=== PATIENT | male | born 1965 | race Caucasian/White ===

== ENCOUNTER 2018-02-24 01:14 | Inpatient (IN) | payer MEDICAID, SELFPAY ==
[2018-02-24] MEDS ORDERED: Lidocaine 1% (PF) 30 ML VIAL ONE (01:24)
[2018-02-24] MEDS ORDERED: Heparin 5,000 UNITS/ML VIAL ONE (01:30)
[2018-02-24 01:44] LABS: #Basophils 0.1 thou/uL (0.0-0.2); #Eosinphils 0.1 thou/uL (0.0-0.7); #Lymphocytes 1.8 thou/uL (1.20-3.40); #Monocytes 0.7 thou/uL (0.11-0.59); #Neutrophils 5.6 thou/uL (1.40-6.50); %Basophils 0.7 % (0.0-1.0); %Eosinophils 0.6 % (0.0-10.0); %Lymphocytes 21.7 % (21.0-51.0); %Monocytes 8.2 % (0.0-10.0); %Neutrophils 68.7 % (42.0-75.0); Hemoglobin 16.7 g/dL (14.0-18.0); Mean Corpuscular HGB CONC 31.9 g/dL (32.0-36.0); Mean Corpuscular Hemoglobin 30.9 pg (27.0-31.0); Mean Platelet Volume 7.4 fL (7.4-10.4); Platelet Count 213 thou/uL (130-400); RBC Distribution Width 12.3 % (11.5-14.5); Red Blood Cell (RBC) Count 5.41 mill/uL (4.70-6.10); White Blood Cell (WBC) Count 8.1 thou/uL (4.8-10.8)
[2018-02-24 01:54] LABS: Prothrombin Time 13.1 SEC (12.0-14.7)
[2018-02-24] MEDS ORDERED: Adenosine 6 MG/2 ML VIAL ONE (02:02)
[2018-02-24] MEDS ORDERED: Verapamil 5 MG/2 ML VIAL ONE (02:02)
[2018-02-24 02:03] LABS: ALT (SGPT) 12 U/L (8-55); AST (SGOT) 10 U/L (5-34); Albumin 3.9 g/dL (3.5-5.0); Alkaline Phosphatase 91 U/L (40-150); Anion Gap 23 mmol/L (10-20); BUN (Urea Nitrogen) 18 mg/dL (8.4-25.7); Bilirubin, Total 0.5 mg/dL (0.2-1.2); Calc. Creatinine Clearance 0 mL/min (70-130); Calcium 9.4 mg/dL (7.8-10.44); Carbon Dioxide 21 mmol/L (22-29); Chloride 95 mmol/L (98-107); Estimated GFR-MDRD 71; Globulin 2.8 g/dL (2.4-3.5); Glucose 429 mg/dL (70-105); Magnesium 1.9 mg/dL (1.6-2.6); Potassium 4.8 mmol/L (3.5-5.1); Protein, Total 6.7 g/dL (6.0-8.3); Sodium 134 mmol/L (136-145)
[2018-02-24 02:04] LABS: CKMB 3.6 ng/mL (0-6.6); Troponin I 0.289 ng/mL (< 0.028)
[2018-02-24] MEDS ORDERED: Heparin 10,000 UNITS/1 ML VIAL ONE (02:04)
[2018-02-24] MEDS ORDERED: Nitroglycerin 100MG/250ML BOT 250 ML ONE (02:08)
[2018-02-24] MEDS ORDERED: PHENYLEPHRINE-NS 100 MCG/ML 10 ML SYRINGE ONE (02:20)
[2018-02-24] MEDS ORDERED: Acetaminophen/Codeine 30-300mg Tablet PO PRN (02:33)
[2018-02-24] MEDS ORDERED: Morphine 4 MG/ML VIAL SLOW IVP PRN (02:33)
[2018-02-24] MEDS ORDERED: Mag-Al 1200 mg/1200 mg/30 ML UDCUP PO PRN (02:33)
[2018-02-24] MEDS ORDERED: Milk Of Magnesia 30 ML UDCUP PO PRN (02:33)
[2018-02-24] MEDS ORDERED: Amiodarone In Dextrose 200 ML IVPB SCH (02:45)
[2018-02-24] MEDS ORDERED: Sodium Chloride 0.9% 1,000 ML IV SCH (02:45)
--- NOTE | 2018-02-24 03:04 | HP ---
CHIEF COMPLAINT: Acute myocardial infarction. HISTORY OF PRESENT ILLNESS: Mr. Canela is a 52-year-old gentleman, who has been seen and evaluated by Dr. Soy Costello in the past. He recently presented with acute onset chest pain. Chest pain start ed at 9:00 this evening. He then presented to the emergency room with ST segment elevation CA. PAST MEDICAL HISTORY: CAD, status post non-Q wave myocardial infarction, status post stent placement to the circumflex artery; diabetes mellitus; hyperlipidemia; illicit drug use (amphetamine use); CVA with left-sided numbness; pneumothorax; hypertension. ALLERGIES: METFORMIN. MEDICATIONS: Include spironolactone, losartan, Plavix, glyburide, Proventil, Xopenex, clonidine, and pravastatin. SOCIAL HISTORY: Positive tobacco use, positive methamphetamine use. FAMILY HISTORY: Positive for CAD. REVIEW OF SYSTEMS: A ten-point review of systems is reviewed and as above, otherwise negative. PHYSICAL EXAMINATION: GENERAL: Patient is a pleasant male who is in no acute distress. The patient appears older than his stated age. VITAL SIGNS: Blood pressure 110/70, pulse 80, respirations 20. NEUROLOGIC: The patient is alert and oriented times 3 with no focal neurologic deficits. HEENT: Sclerae without icterus. Mouth has moist mucous membranes with normal pallor. NECK: No JVD. Carotid upstroke brisk. No bruits bilaterally. LUNGS: Clear to auscultation with unlabored respirations. BACK: No scoliosis or kyphosis. CARDIAC: Regular rate and rhythm with normal S1 and S2. No S3 or S4 noted. No significant rubs, mu rmurs, thrills, or gallops noted throughout the precordium. PMI is not displaced. There is no christian ternal heave. ABDOMEN: Soft, nontender, nondistended. No peritoneal signs present. No hepatosplenomegaly. No ab normal striae. EXTREMITIES: 2+ femoral and 2+ dorsalis pedis pulses. No cyanosis, clubbing, or edema. SKIN: No gross abnormalities. PERTINENT LABS: Currently pending. EKG shows normal sinus rhythm with ST segment elevation noted in feriorly. IMPRESSION: Acute myocardial infarction. RECOMMENDATIONS: At this point, I recommend urgent coronary angiography and possible PCI. I discuss ed the procedure in full detail with Mr. Canela. The risks of the procedure were also discussed. The risks of the procedure include but are not limited to the following: , stroke, CA, need for em ergency surgery, loss of limb, bleeding, and infection, as well as a reaction to the dye causing kidn ey failure and needing long-term dialysis. I also discussed the risks of PCI to include all of the a seamus including coronary dissection and perforation in addition to acute stent thrombosis and restenos is. All questions about the procedure were answered. Given the above, the patient agreed to proceed with coronary angiography and possible PCI. Further recommendations pending the above.
--- NOTE | 2018-02-24 08:02 | ADD-OP ---
The patient underwent urgent coronary angiography and was found to have complete occlusion of the cir cumflex artery, moderate stenosis of the LAD in addition to a complete occlusion of the right coronar y artery. The right coronary artery appeared to be the acute vessel. There was some mild to moderat e difficulty on passing the wire. After passed the wire, there is a predilatation followed by a sten t implantation. He did develop ventricular tachycardia and did respond to IV amiodarone. In the ___ __, there appeared to be a diffuse disease present within the right coronary artery. The stenosis ap peared to be diffuse noted into the PDA and RPL. Decided not to proceed with further intervention. Previous films were not available for review. There was mention per Dr. Vinicio Jaquez of 70% stenosis of the mid RCA and likely corresponded to the same area. Decided to proceed with only stent implantati on to the proximal RCA.
--- NOTE | 2018-02-24 08:15 | CT ---
PRELIMINARY REPORT/[facility]/EMERGENCY AFTER HOURS PROCEDURE: Addendum created by Senthil Mckinnon MD on 02/24/2018 1:41 AM Central Time ([place] & [place]) THIS REPORT CONTAI NS FINDINGS THAT MAY BE CRITICAL TO PATIENT CARE. The findings were verbally communicated via telepho ne conference with YASH MORALES at 1:41 AM CDT on 02/24/2018. The findings were acknowledged and und erstood. Initial Report created on 02/24/2018 1:39 AM Central Time ([place] & [place]) EXAM: CT Head Without Intravenous Contrast EXAM DATE/TIME: 02/24/2018 1:32 AM CLINICAL HISTORY: 52 years old, male; Signs and symptoms; Dizziness; Patient HX: stroke alert 52 yo m presents to e d with possible stemi and possible CVA. Ems reports PT is feeling dizzy/weak and has had some slurred speech. Ems reports PT has some chest pain. Ems reports PT has HX of thrombolytic CVA. Ems reports PT was initially complaining of chest pain. Ems gave PT 324 asa around midnight. PT repor ts he is still feeling pain in chest but that it has improved. PT says pain started 2.5 hours ago and describes it has a pressure that radiates across his chest. TECHNIQUE: Axial computed tomography images of the head/brain without intravenous contrast. COMPARISON: No relevant prior studies available. FINDINGS: Brain: Question faint left cerebellar infarction images 10-11 Mild volume loss. Chronic basal ganglia and right internal capsular lacunar infarctions No hemorrhage. No significant white matter disease. . Ventricles: Normal. No ventriculomegaly. Bones/joints: Normal. No acute fracture. Sinuses: Normal as visualized. No acute sinusitis. Mastoid air cells: Minimal fluid in the left mastoid cavities. Soft tissues: Normal. IMPRESSION: Question age indeterminate left cerebellar infarction as noted. Consider MRI as clinically indicated No intracranial hemorrhage.Please see discussion above. Thank you for allowing us to participate in the care of your patient. Dictated and Authenticated by: Senthil Mckinnon MD 02/24/2018 1:39 AM Central Time ([place] & [place]) FINAL REPORT HEAD CT WITHOUT CONTRAST: DATE: 02/24/18. COMPARISON: None. HISTORY: Stroke alert, possible myocardial infarction, possible stroke, dizziness, and weakness. FINDINGS: There is a faint hypodensity within the superomedial aspect of the cerebellum on the left on image 10 which may represent an age-indeterminate focus of an infarction. There is no intracranial hemorrhag e, midline shift, or mass effect. Age-indeterminate lacunar infarction noted in the right thalamus. Imaged paranasal sinuses and mastoid air cells are unremarkable aside from a few opacified mastoid a ir cells and fairly on the right. No acute osseous abnormality. IMPRESSION: Foci of age-indeterminate, possibly acute, lacunar infarction including right thalamus and left cereb ellar hemisphere. No intracranial hemorrhage. If there is clinical concern for intraatrial clot, CT angiogram recommended. Brain MRI could best assess for underlying acute infarction. POS: [facility]
--- NOTE | 2018-02-24 08:33 | RAD ---
PORTABLE CHEST: HISTORY: Chest pain. COMPARISON: 09/14/15. FINDINGS: Lungs are clear. No evidence of infiltrate. Scattered calcified granuloma again noted. Some parenc hymal stranding in the right lung appears stable. Heart size is normal. IMPRESSION: No acute process. POS: [facility]
[2018-02-24 08:37] LABS: Troponin I 71.814 ng/mL (< 0.028)
[2018-02-24] MEDS: Clopidogrel Bisulfate 75 MG TAB PO SCH (08:46)
--- NOTE | 2018-02-24 10:11 | CON ---
DATE OF CONSULTATION: 02/24/2018 SERVICE: Pulmonary Medicine. REASON FOR CONSULTATION: ICU patient. HISTORY OF PRESENT ILLNESS: The patient is a 52-year-old white male with past medical history significant for methamphetamine abuse. He is in his usual state of health when he had an abrupt onset of chest discomfort. He presented to the Emergency Department and was discovered to have an ST elevation PA. He underwent emergent cardiac catheterization and a RCA lesion was identified. It was subsequently stented. When this happened, his chest pain resolved almost immediately. During the intervention, he ended up having a short run of ventricular tachycardia. He was placed on amiodarone and it resolved. PAST MEDICAL HISTORY: 1. Coronary artery disease. 2. Type 2 diabetes mellitus. 3. Hypertension. 4. Dyslipidemia. 5. Polysubstance drug abuse. 6. Tobacco abuse, ongoing. 7. History of cerebrovascular accident. 8. History of pneumothorax. PAST SURGICAL HISTORY: 1. Percutaneous coronary intervention. 2. 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 ALLERGIES: METFORMIN. MEDICATIONS: List of his inpatient medications were reviewed. No specific updates were made at this time. SOCIAL HISTORY: He has a greater than [id number] history of smoking. He abuses methamphetamine. Otherwise, he denies any alcohol, tobacco or illicit drug use. He has no exposure to chemicals, dust asbestosis or tuberculosis. FAMILY HISTORY: Noncontributory. REVIEW OF SYSTEMS: General, head, ears, eyes, nose, throat, cardiovascular, respiratory, GI, , musculoskeletal, neurologic and skin is negative except what is mentioned in the HPI. PHYSICAL EXAMINATION: VITAL SIGNS: Afebrile, pulse 92, blood pressure 90/49, respirations 19, saturation 100% on room air. GENERAL: The patient is awake, alert, in no apparent distress. LUNGS: Reduced air entry. There is a prolonged expiratory phase. Crackles and rhonchi are both present, but I do not appreciate any wheezing. HEART: Normal rate, regular. ABDOMEN: Soft, nontender, and nondistended. Bowel sounds are positive. MUSCULOSKELETAL: No cyanosis or clubbing. There is no pitting in the bilateral lower extremities. NEUROLOGIC: Grossly nonfocal. LABORATORY DATA: WBC 8.1, hemoglobin 16.7, and platelets 213,000. INR 1.0. Basic metabolic profile and liver function studies are unremarkable. Troponin was 0.2, but has increased to 72. CK-MB 236. Urinalysis is unremarkable. Urine drug screen is positive for methamphetamines. ASSESSMENT: 1. ST elevation myocardial infarction. 2. Coronary artery disease. 3. Tobacco abuse. 4. Type 2 diabetes mellitus. 5. Polysubstance drug abuse with methamphetamine. PLAN: The patient will remain in this location for the next 6 hours. From my perspective, after he tolerating p.o. and we start moving him around to touch more, he will be stable for transition to the telemetry unit. Pulmonary or Critical Care will continue to follow along in this location. 70 minutes have been devoted to this patient in various activities. I personally reviewed all imaging studies and laboratory data noted within this document. For fifty percent of this time, I was interacting with the patient at the bedside or coordinating care with the care team. For the remainder of the time I was immediately available to the patient in the hospital unit. JOVANY
[2018-02-24] MEDS: Amiodarone HCl 450 MG, Admixture Fee 1 EACH in Dextrose 5% in Water 250 ML IVPB SCH (12:13)
[2018-02-24] MEDS ORDERED: Iopamidol 370 76% 50 ML VIAL FS ONE (13:53)
[2018-02-24] MEDS ORDERED: Iopamidol 370 76% 100 ML VIAL ONE (13:53)
[2018-02-24 13:56] LABS: CKMB 167.6 ng/mL (0-6.6); Critical Call CKMBM RESULT DECREASING; Critical Call Chem Troponin I RESULT DECREASING; Troponin I 48.811 ng/mL (< 0.028)
[2018-02-24] MEDS ORDERED: Dextrose 5% in Water 1,000 ML IV PRN (15:47)
[2018-02-24] MEDS ORDERED: Dextrose 50% Abboject 50 ML SYRINGE IVP PRN (15:47)
[2018-02-24] MEDS: Insulin Regular 300 UNITS/3 ML VIAL SC PRN ×2 (15:58→20:52)
[2018-02-24] MEDS: Atorvastatin Calcium 40 MG TAB PO SCH (19:52)
[2018-02-24 20:01] LABS: CKMB 108.9 ng/mL (0-6.6); Critical Call CKMBM RESULT DECREASING; Critical Call Chem Troponin I RESULT DECREASING; Troponin I 26.692 ng/mL (< 0.028)
[2018-02-25] MEDS: Amiodarone HCl 450 MG, Admixture Fee 1 EACH in Dextrose 5% in Water 250 ML IVPB SCH (01:41)
[2018-02-25 05:41] LABS: #Basophils 0.1 thou/uL (0.0-0.2); #Eosinphils 0.1 thou/uL (0.0-0.7); #Lymphocytes 2.4 thou/uL (1.20-3.40); #Monocytes 1.1 thou/uL (0.11-0.59); #Neutrophils 5.7 thou/uL (1.40-6.50); %Basophils 0.5 % (0.0-1.0); %Eosinophils 0.8 % (0.0-10.0); %Lymphocytes 25.5 % (21.0-51.0); %Monocytes 11.9 % (0.0-10.0); %Neutrophils 61.2 % (42.0-75.0); Hemoglobin 16.5 g/dL (14.0-18.0); Mean Corpuscular Hemoglobin 31.5 pg (27.0-31.0); Mean Corpuscular Volume 95.5 fl (80.0-94.0); Mean Platelet Volume 7.2 fL (7.4-10.4); Platelet Count 190 thou/uL (130-400); RBC Distribution Width 12.6 % (11.5-14.5); Red Blood Cell (RBC) Count 5.25 mill/uL (4.70-6.10); White Blood Cell (WBC) Count 9.4 thou/uL (4.8-10.8)
[2018-02-25 06:08] LABS: ALT (SGPT) 20 U/L (8-55); AST (SGOT) 46 U/L (5-34); Albumin 3.4 g/dL (3.5-5.0); Alkaline Phosphatase 75 U/L (40-150); Anion Gap 15 mmol/L (10-20); BUN (Urea Nitrogen) 17 mg/dL (8.4-25.7); Bilirubin, Total 0.4 mg/dL (0.2-1.2); Calc. Creatinine Clearance 110 mL/min (70-130); Calcium 9.2 mg/dL (7.8-10.44); Carbon Dioxide 23 mmol/L (22-29); Chloride 100 mmol/L (98-107); Estimated GFR-MDRD Greater than 90; Globulin 2.8 g/dL (2.4-3.5); Glucose 281 mg/dL (70-105); Protein, Total 6.2 g/dL (6.0-8.3); Sodium 134 mmol/L (136-145)
[2018-02-25] MEDS: Insulin Regular 300 UNITS/3 ML VIAL SC PRN ×3 (06:16→20:59)
--- NOTE | 2018-02-25 08:48 | PRG ---
DATE OF SERVICE: 02/25/2018 SERVICE: Pulmonary Medicine. INTERVAL HISTORY: The patient is doing fine from a respiratory standpoint. His biggest complaint is that he is hungry. The breakfast he got this morning was not enough. He denies any chest pain, olya sea, vomiting, fevers or chills. Otherwise, there were no events overnight. No ectopy on telemetry was identified. PHYSICAL EXAMINATION: VITAL SIGNS: Afebrile, pulse 90, blood pressure 135/69, respirations 20, saturation 99% on room air. GENERAL: The patient is awake and alert, in no apparent distress. LUNGS: Excellent air entry with no prolonged expiratory phase, wheezing, rhonchi or crackles. HEART: Normal rate, regular. ABDOMEN: Soft, nontender, nondistended. Bowel sounds are positive. MUSCULOSKELETAL: No cyanosis or clubbing. There is no pitting in the bilateral lower extremities. NEUROLOGIC: Grossly nonfocal. LABORATORY DATA: WBC 9.4, hemoglobin 16.5, platelets 190,000. Basic metabolic profile and liver fun ction studies are essentially unremarkable. Troponin is down trending to 27. Liver function studies are unremarkable. ASSESSMENT: 1. ST elevation myocardial infarction, status post percutaneous coronary intervention to the right c oronary artery. 2. Coronary artery disease, severe. 3. Tobacco abuse. 4. Type 2 diabetes mellitus. 5. Polysubstance drug abuse, including methamphetamine. DISCUSSION AND PLAN: The patient is stable for transition out of the unit. He will go to telemetry. Pulmonary and Critical Care will sign off when he lands on the floor as he has no further requireme nts for inpatient Pulmonary or Critical Care opinion outside of the unit.
[2018-02-25] MEDS: Clopidogrel Bisulfate 75 MG TAB PO SCH (09:27)
[2018-02-25] MEDS: Insulin Glargine 15 UNITS in Pre-Filled Syringe 1 EACH SC SCH (09:59)
[2018-02-25] MEDS: Atorvastatin Calcium 40 MG TAB PO SCH (20:58)
[2018-02-26] MEDS: Insulin Regular 300 UNITS/3 ML VIAL SC PRN ×3 (09:21→17:23)
[2018-02-26] MEDS: Clopidogrel Bisulfate 75 MG TAB PO SCH (09:21)
[2018-02-26] MEDS: Insulin Glargine 15 UNITS in Pre-Filled Syringe 1 EACH SC SCH (09:21)
[2018-02-26 12:13] VITALS: BMI 20.5
[2018-02-26] MEDS: Atorvastatin Calcium 40 MG TAB PO SCH (19:50)
[2018-02-27] MEDS: Insulin Regular 300 UNITS/3 ML VIAL SC PRN (06:23)
[2018-02-27] MEDS ORDERED: glyBURIDE 5 MG TAB PO SCH (08:00)
[2018-02-27] MEDS: Clopidogrel Bisulfate 75 MG TAB PO SCH (08:40)
[2018-02-27] MEDS: Insulin Glargine 15 UNITS in Pre-Filled Syringe 1 EACH SC SCH (08:41)
--- NOTE | 2018-02-27 12:05 | DIS ---
DATE OF ADMISSION: 02/24/2018 DATE OF DISCHARGE: 02/27/2018 DISCHARGE DIAGNOSES: 1. Myocardial infarction. 2. Coronary artery disease. 3. Hypertension. 4. Diabetes mellitus. 5. Dyslipidemia. 6. Noncompliance. This patient is a 52-year-old gentleman with a long history of coronary artery disease, who presented with acute onset of substernal chest discomfort. The patient was noted to have ST-elevation in the inferior leads,he was taken emergently for cardiac catheterization. The patient was found to have moderate stenosis in the mid LAD. He had a complete occlusion of the left circumflex and right coronary artery. The patient underwent PTCA and stent placed in the right coronary artery. The patient was placed on medical therapy. The patient has a long history of noncompliance. The life-threatening consequences of continuing smoking and the use of illicit drugs have been explained to the patient. The patient is discharged in stable, but guarded condition. DISCHARGE MEDICATIONS: Aspirin 81 daily, Lipitor 40 at bedtime, Plavix 75 daily , enalapril 5 b.i.d., Toprol 25 XL daily.and Glyburide 5mg daily. MTDD
[2018-02-27 12:10] VITALS: BP 113/73; TEMP 98.1
== END 2018-02-27 12:05 | disposition home or self-care (01) | DRG 281 ==
LOC: ERS 01:14 → CCU 01:40 → 2NO 02-25 10:28
PROVIDERS: ADMIT Internal Medicine Cardiovascular Disease; ATTEND Internal Medicine Cardiovascular Disease
PROC: 4A023N7 Measurement of Cardiac Sampling and Pressure, Left Heart, Percutaneous Approach (ICD-10-PCS; principal; 2018-02-24)
PROC: B2111ZZ Fluoroscopy of Multiple Coronary Arteries using Low Osmolar Contrast (ICD-10-PCS; 2018-02-24)
DX: I21.19 ST elevation (STEMI) myocardial infarction involving other coronary artery of inferior wall (principal); I47.2 Ventricular tachycardia; I25.10 Atherosclerotic heart disease of native coronary artery without angina pectoris; E11.9 Type 2 diabetes mellitus without complications; E78.5 Hyperlipidemia, unspecified; I10 Essential (primary) hypertension; F15.90 Other stimulant use, unspecified, uncomplicated; F17.210 Nicotine dependence, cigarettes, uncomplicated; I69.398 Other sequelae of cerebral infarction; R20.0 Anesthesia of skin; Z79.02 Long term (current) use of antithrombotics/antiplatelets; F15.10 Other stimulant abuse, uncomplicated; Z91.19 Patient's noncompliance with other medical treatment and regimen; I25.2 Old myocardial infarction; Z88.8 Allergy status to other drugs, medicaments and biological substances; Z95.5 Presence of coronary angioplasty implant and graft
CPT/HCPCS: 36415; 36416; 70450; 71045; 76942; 80053; 82553; 83735; 84484; 85025; 85347; 85610; 85730; 92941; 93005; 93010; 93306; 93458; 93798; 96374; A4216; C1725; C1769; C1876; C1887; J0153; J0282; J1644; J1815; J2001; J2270; J7070

== ENCOUNTER 2018-03-30 18:36 | Emergency (ER) | payer SELFPAY ==
[2018-03-30] MEDS ORDERED: Insulin Regular 300 UNITS/3 ML VIAL ONE (19:41)
== END 2018-03-30 21:27 | disposition home or self-care (01) ==
LOC: ERS 18:36
DX: E11.65 Type 2 diabetes mellitus with hyperglycemia (principal); E78.5 Hyperlipidemia, unspecified; J44.9 Chronic obstructive pulmonary disease, unspecified; I25.2 Old myocardial infarction; I12.9 Hypertensive chronic kidney disease with stage 1 through stage 4 chronic kidney disease, or unspecified chronic kidney disease; E11.22 Type 2 diabetes mellitus with diabetic chronic kidney disease; N18.1 Chronic kidney disease, stage 1; F17.210 Nicotine dependence, cigarettes, uncomplicated; Z86.73 Personal history of transient ischemic attack (TIA), and cerebral infarction without residual deficits; Z79.899 Other long term (current) drug therapy; Z79.82 Long term (current) use of aspirin
CPT/HCPCS: 36416; 93005; 96361; 96372; 96374; J1815

== ENCOUNTER 2019-02-21 07:48 | Observation (INO) | payer MEDICAID ==
[2019-02-21] MEDS ORDERED: Propofol 1,000 MG/100 ML VIAL IV ONE (10:04)
[2019-02-21 12:17] VITALS: BMI 19.9
[2019-02-21 12:19] LABS: Troponin I 0.027 ng/mL (< 0.028)
[2019-02-21] MEDS ORDERED: Acetaminophen 325 MG TAB PO PRN (12:45)
[2019-02-21] MEDS ORDERED: Aspirin 325 MG TAB PO SCH (13:00)
[2019-02-21] MEDS ORDERED: Senokot S 8.6-50 MG TAB PO PRN (14:19)
[2019-02-21] MEDS ORDERED: Ondansetron PF 4 MG/2 ML Vial IVP PRN (14:19)
[2019-02-21] MEDS ORDERED: Ondansetron ODT 4 MG TAB PO PRN (14:19)
[2019-02-21] MEDS ORDERED: Nitroglycerin 0.4 MG TAB (25 Tab Bottle) PO PRN (14:19)
[2019-02-21] MEDS ORDERED: Dextrose 5% in Water 1,000 ML IV PRN (14:29)
[2019-02-21] MEDS ORDERED: Dextrose 50% Abboject 50 ML SYRINGE SLOW IVP PRN (14:29)
[2019-02-21] MEDS ORDERED: HumaLOG 300 UNITS/3 ML VIAL SC PRN ×2 (14:29→20:20)
[2019-02-21] MEDS ORDERED: Clopidogrel Bisulfate 75 MG TAB PO SCH (14:45)
[2019-02-21] MEDS ORDERED: Insulin Glargine 20 UNITS in Pre-Filled Syringe 1 EACH SC SCH (14:45)
[2019-02-21 14:49] LABS: Troponin I 0.015 ng/mL (< 0.028)
[2019-02-21] MEDS ORDERED: Nicotine 21 MG PATCH TD SCH (15:00)
--- NOTE | 2019-02-21 16:01 | HP ---
CHIEF COMPLAINT: Left upper limb numbness and weakness. HISTORY OF PRESENT ILLNESS: A 53-year-old male with known history of diabetes, not on medication; prior CVAs with residual left-sided weakness; and coronary artery disease status post SC with stent placement, who was transferred from [place] [facility] for further evaluation and treatment of acute left upper limb weakness and chest tightness associated with abnormal EKG. The patient reportedly developed left upper limb numbness, tingling, and weakness around 2 a.m. last night. He subsequently called EMS. Prior to EMS arrival, the patient reported episode of chest tightness, but denied chest pain. The patient was subsequently taken to the ER. He, however, reported significant improvement in the left upper limb weakness, numbness, and tingling, though it has not returned to baseline. The patient was evaluated in the ER in [place] with electrocardiogram. Initial EKG was noted to show some nonspecific ST and T-wave changes. Repeat EKG about an hour later showed ST depression in V3 through V5 as well as T-wave inversion in V2 through V4. The patient was then treated with Lovenox and aspirin and was transferred over here for further evaluation and treatment. The patient also was noted to have markedly elevated blood glucose of 670 and also was treated with IV fluid and regular insulin with improvement in blood sugar to 300s. Of note, left upper limb weakness and numbness have improved significantly, but it just not yet back to baseline. The patient also had an SC in February 2018, for which he had cardiac catheterization with stent placement and was supposed to be on aspirin and Plavix as well as other cardiac medications, but has not been on these as he said he has no money to get the medications. He also is supposed to be on insulin for type 2 diabetes, but has not been on any medication for about a year. He, however, continues to smoke. He tells me that he smokes about half a pack per day. He also reported prior history of CVAs with residual left-sided weakness and mild numbness in left upper limb, for which he ambulates with a cane. Of note, serial troponin obtained both at [facility] and here in the ER has been unremarkable. PAST MEDICAL HISTORY: 1. Noncompliance. 2. Coronary artery disease. 3. Prior myocardial infarction, status post stent placement. 4. Diabetes mellitus. 5. CVA with residual left-sided weakness. 6. Right-sided pneumothorax. 7. COPD. 8. Tobacco abuse disorder. PAST SURGICAL HISTORY: 1. 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 2. Cardiac catheterization and stent placement in 2018. 3. Right-sided chest tube placement. FAMILY HISTORY: Significant for CHF, diabetes, and hypertension in father. SOCIAL HISTORY: [place] He is currently unemployed and had no insurance up till recently when he now has Medicare. He smokes about a half a pack a day for about 39 years. Denied alcohol use. Review of medical records shows the patient has abused recreational drugs in the past. Reportedly, he has 2 children, and daughter is living here in [place], but he does not know where the son is. ALLERGIES: NO KNOWN DRUG ALLERGIES REPORTED. CURRENT HOME MEDICATIONS: The patient is currently on no medication at home. However, he is supposed to be on Plavix, aspirin, insulin as well as atorvastatin and enalapril. REVIEW OF SYSTEMS: The patient admitted to polyuria, polydipsia, excessive thirst, and weight loss. He told me that he used to weigh about 300 pounds. He denied dysuria, hematuria, nausea, vomiting, change in bowel habits, leg swelling, palpitations, headache, change in vision, hematemesis, or hematochezia. Other components of 12-point review of systems performed were unremarkable. PHYSICAL EXAMINATION: VITAL SIGNS: Temperature 97.6, pulse 79, respiratory rate 12, SpO2 of 100% on room air, blood pressure is 145/83. GENERAL: Middle-aged male, in no obvious distress. He, however, appears older than stated age. Afebrile. Anicteric. Acyanotic. HEENT: Normocephalic and atraumatic. Pupils are reacting to light. Oral mucosa is moist. NECK: Supple and nontender with no obvious masses. RESPIRATORY: Good air entry bilaterally with no obvious crackle, rhonchi, or use of accessory muscles. CARDIOVASCULAR: Regular rhythm and rate with normal heart sounds 1 and 2. No obvious murmur was appreciated. GI: Full, soft, nontender, and nondistended with normal bowel sounds. EXTREMITIES: Atraumatic with no edema, erythema, or cyanosis. Some muscle wasting and excessive overhanging skin noted in the upper arm and legs. No obvious edema appreciated. NEUROLOGIC: Conscious, alert, oriented x3 with appropriate mental status. Cranial nerves 2 through 12 are intact. The patient moves all extremities. Power is 5/5 in right limbs. Whereas, power is 4/5 in the left limbs. Sensation is decreased in both feet and legs in a stocking pattern up to distal legs. DIAGNOSTIC DATA: CBC showed WBC count of 5.1, hemoglobin of 13.4, MCV of 93.1, platelet of 153. CMP showed sodium 134, potassium 3.7, chloride 92, CO2 of 34, anion gap of 12, BUN 6, creatinine 0.85, glucose 670, calcium 8.8, total bilirubin 0.3, AST 9, ALT 9, alkaline phosphatase 125, total protein 6.1, albumin 3.5, globulin 2.6. CK 35. Troponin 3 times were all less than 0.027. Lipase 39. Initial EKG showed normal sinus rhythm with rate of 78. Nonspecific ST and T-wave changes noted as well as right bundle-branch block. Repeat EKG 1 hour after showed normal sinus rhythm with rate of [address] depression at V3 through V5 and T-wave inversion at V2 through V4. Right bundle-branch block again is noted. CT scan of the brain showed no acute intracranial hemorrhage or mass effect. However, chronic right thalamic lacunar infarction and punctate hypodensities of the left thalamus were noted as well as microvascular ischemic disease. Chest x-ray showed no acute cardiopulmonary process. ASSESSMENT: 1. Unstable angina: The patient has known history of coronary artery disease, status post stent placement. He had some chest tightness, which has resolved, associated with EKG changes. Received aspirin and Lovenox at [facility]. Initial serial troponin, however, has been negative. 2. Transient ischemic attack: The patient reported acute onset of left upper limb weakness and numbness, which have improved, but not yet back to baseline. On presentation, the patient has a markedly elevated glucose of 670, which has improved with insulin and IV fluid. The patient is supposed to be on Lipitor and aspirin given prior cerebrovascular accidents, but has not been compliant. Initial CT scan of the brain was negative for acute process. 3. Uncontrolled diabetes mellitus with hyperglycemia. Noncompliance. 4. Hyperlipidemia. 5. Prior cerebrovascular accidents with left-sided hemiparesis and gait instability. 6. Tobacco abuse disorder. PLAN: 1. We will get serial troponin to rule out acute myocardial infarction. 2. We will start the patient on antithrombotic therapy with Lovenox, Plavix, and aspirin. We will follow up with nuclear stress test for further risk stratification. We will also consult Cardiology. 3. We will start the patient on insulin therapy as well as IV fluid. 4. We will also start the patient on low-dose Coreg as well as high-dose statin. Diabetic diet will be started. 5. We will commence neuro checks. We will also get echocardiogram and carotid Doppler. 6. Code status: Full code. The patient's daughter is the surrogate decision maker. 7. The patient will be kept on observation at this time. Further treatment to follow depending on hospital course. Job ID: [id number]
[2019-02-21] MEDS: Sodium Chloride 0.9% 1,000 ML IV SCH (16:26)
[2019-02-21] MEDS ORDERED: HumaLOG 300 UNITS/3 ML VIAL SC SCH (17:00)
[2019-02-21] MEDS: HumaLOG 300 UNITS/3 ML VIAL SC PRN (18:10)
--- NOTE | 2019-02-21 18:53 | ULT ---
EXAM: Carotid ultrasound HISTORY: Stroke/TIA COMPARISON: None TECHNIQUE: Multiplanar grayscale and color Doppler images were obtained in a carotid ultrasound. Spec tral analysis of the Doppler waveforms were performed. FINDINGS: No significant plaque is visualized in either internal carotid artery. No significant plaque is seen in either common carotid artery. The Doppler waveforms are normal in the visualized vessels. Peak systolic velocity in the right internal carotid artery 63 cm/s. Peak systolic velocity in the right common carotid artery 93 cm/s. The right ICA/CCA ratio is 0.7. Peak systolic velocity in the left internal carotid artery 77 cm/s. Peak systolic velocity in the left common carotid artery 90 cm/s. The left ICA/CCA ratio is 0.9. Both vertebral arteries demonstrate antegrade flow without focal stenosis IMPRESSION: No evidence of hemodynamically significant stenosis.
[2019-02-21 20:24] LABS: Bilirubin Negative (Negative); Blood, Urine Negative (Negative); Clarity CLEAR (Clear); Glucose, Urine (Dipstick) 500 mg/dL (Negative); Leukocyte Negative (Negative); Nitrite Negative (Negative); Protein, Urine (Dipstick) Negative (Neg-Trace); Specific Gravity, Urine 1.035 (1.002-1.036); Urobilinogen 0.2 mg/dL (0.2-1.0)
[2019-02-21 20:27] LABS: Bacteria/HPF None Seen HPF (None Seen); Hyaline Casts/LPF 0-3 HYALINE CAST LPF (0-3 Hyaline); RBC/HPF 0-3 HPF (0-3); Squamous Epithelial None Seen HPF (0-3); WBC/HPF None Seen HPF (0-3)
[2019-02-21 20:33] LABS: Amphetamine Not Detected (NotDetected); Barbiturates Screen Not Detected (NotDetected); Benzodiazepine Screen Not Detected (NotDetected); Cocaine Metabolite Screen Not Detected (NotDetected); Medtox Reader # READER 1; Methadone Not Detected (NotDetected); Methamphetamine Not Detected (NotDetected); Opiate Screen Not Detected (NotDetected); Oxycodone Screen Not Detected (NotDetected); Phencyclidine (PCP) Not Detected (NotDetected); THC/Cannabinoid Screen Not Detected (NotDetected); Tricyclic Screen Not Detected (NotDetected)
[2019-02-21 20:34] LABS: Medtox Control Line Valid? VALID (VALID)
[2019-02-21] MEDS: Carvedilol 3.125 MG TAB PO SCH (20:57)
[2019-02-21] MEDS: Famotidine 20 MG TAB PO SCH (20:57)
[2019-02-21] MEDS: Enoxaparin Sodium 80 MG/0.8 ML SYRINGE SC SCH (20:57)
[2019-02-21] MEDS ORDERED: Atorvastatin Calcium 40 MG TAB PO SCH (21:00)
[2019-02-22] MEDS: Sodium Chloride 0.9% 1,000 ML IV SCH (00:29)
[2019-02-22 05:52] LABS: Hemoglobin A1c 16.5 % (4.0-6.0)
[2019-02-22 06:10] LABS: Anion Gap 8 mmol/L (10-20); BUN (Urea Nitrogen) 9 mg/dL (8.4-25.7); Calc. Creatinine Clearance 142 mL/min (70-130); Calcium 8.5 mg/dL (7.8-10.44); Carbon Dioxide 30 mmol/L (22-29); Cardiac Risk 2.7 (Less than 4.5); Chloride 103 mmol/L (98-107); Cholesterol 155 mg/dl (< 200 Desired); Estimated GFR-MDRD Greater than 90; Glucose 211 mg/dL (70-105); HDL Cholesterol 57 mg/dL (>60 Neg Risk); LDL Cholesterol, Calculated 88 mg/dL; Potassium 3.6 mmol/L (3.5-5.1); Sodium 137 mmol/L (136-145); Triglycerides 52 mg/dL (Less than 150)
[2019-02-22] MEDS ORDERED: HumaLOG 300 UNITS/3 ML VIAL SC SCH ×2 (08:00→12:00)
[2019-02-22] MEDS ORDERED: Clopidogrel Bisulfate 75 MG TAB PO SCH (09:00)
[2019-02-22] MEDS ORDERED: Aspirin 325 mg Enteric Coated Tablet PO SCH (09:00)
[2019-02-22] MEDS ORDERED: Regadenoson 0.4 MG/5 ML SYRINGE ONE (10:31)
--- NOTE | 2019-02-22 11:36 | NM ---
MYOCARDIAL PERFUSION AND QUANTITATED GATED SPECT STUDY: HISTORY: Unstable angina. TECHNIQUE: Myocardial perfusion study was performed. The patient was stressed using Lexiscan (0.4 mg of Lexiscan . Radiation dosimetry is 29.9 mCi of technetium 99m Cardiolite for the stress portion of exam and 10.1 mCi for the resting portion of the exam. FINDINGS: Images demonstrate an area of decreased perfusion on stress and resting images in the inferior myocar dium. This is compatible with likely area of inferior myocardial scarring. Ejection fraction measures 38%. IMPRESSION: Hypokinetic heart with inferior myocardial scar. No definite evidence of myocardial ischemia seen. Transcribed Date/Time: 02/22/2019 11:40 AM
--- NOTE | 2019-02-22 11:49 | MRI ---
MRI OF BRAIN NONCONTRAST: CLINICAL INDICATION: CVA, neurologic deficit. FINDINGS: There is no acute territorial infarction, intracranial mass effect, midline shift, or ventriculomegal y. Lacunar infarctions, chronic in time frame, redemonstrated. There is mild chronic ischemic disea se of the cerebral white matter. No hemorrhagic susceptibility artifact. No acute fluid level of th e paranasal sinuses. There is bilateral mastoid fluid. Correlate clinically. Visualized skull base flow voids are grossly patent. IMPRESSION: 1. No acute territorial infarction or intracranial mass effect. 2. Bilateral mastoid effusions. Correlate clinically. 3. Mild chronic microvascular ischemic disease. 4. Chronic bilateral thalamic lacunar infarctions, as were depicted on preceding head CT, 02/21/2019. POS: [facility]
[2019-02-22 12:30] VITALS: TEMP 97.4
[2019-02-22] MEDS: Enoxaparin Sodium 80 MG/0.8 ML SYRINGE SC SCH (13:11)
[2019-02-22] MEDS: Famotidine 20 MG TAB PO SCH (13:11)
[2019-02-22] MEDS: Carvedilol 3.125 MG TAB PO SCH (13:11)
[2019-02-22] MEDS: HumaLOG 300 UNITS/3 ML VIAL SC PRN (13:12)
--- NOTE | 2019-02-22 14:45 | CON ---
DATE OF CONSULTATION: REASON FOR CONSULTATION: Atypical chest pain. HISTORY OF PRESENT ILLNESS: Mr. Canela is a 53-year-old gentleman, who is a patient of Dr. Desean Aguirre. He has a previous history of a stent to the circumflex artery and right coronary artery. He also has a previous history of illicit drug use. He recently presented with left arm pain. No chest pain, pressure, nausea, or vomiting present. His stress test did suggest scar to the inferior wall with LVEF of 38%. PAST MEDICAL HISTORY: CAD, noncompliance, diabetes mellitus, previous CVA, previous right-sided pneumothorax, tobacco abuse, COPD. FAMILY HISTORY: Negative for CAD. REVIEW OF SYSTEMS: A 10-point review of systems is reviewed and as above, otherwise negative. PHYSICAL EXAMINATION: GENERAL: Patient is a pleasant male, who is in no acute distress. The patient appears their stated age. VITAL SIGNS: Blood pressure 162/92, pulse 80, temperature 97.4. NEUROLOGIC: The patient is alert and oriented x3 with no focal neurologic deficits. HEENT: Sclerae without icterus. Mouth has moist mucous membranes with normal pallor. NECK: No JVD. Carotid upstroke brisk. No bruits bilaterally. LUNGS: Clear to auscultation with unlabored respirations. BACK: No scoliosis or kyphosis. CARDIAC: Regular rate and rhythm with normal S1 and S2. No S3 or S4 noted. No significant rubs, murmurs, thrills, or gallops noted throughout the precordium. PMI is not displaced. There is no parasternal heave. ABDOMEN: Soft, nontender, nondistended. No peritoneal signs present. No hepatosplenomegaly. No abnormal striae. EXTREMITIES: 2+ femoral and 2+ dorsalis pedis pulses. No cyanosis, clubbing, or edema. SKIN: No gross abnormalities. PERTINENT LABORATORY DATA: Creatinine 0.57. Troponin negative. IMPRESSION: 1. Atypical chest pain. 2. Coronary artery disease. 3. Status post stent placed. 4. Previous myocardial infarction. 5. Illicit drug use. 6. Noncompliance. RECOMMENDATIONS: Mr. Canela' symptoms are not suggestive of angina. His stress study did not suggest ischemia. His LVEF on echo was 50% to 55%. At this point, recommend continuing medical therapy and assess etiology to the left arm numbness. Job ID: [id number]
--- NOTE | 2019-02-22 15:07 | DIS ---
DATE OF ADMISSION: 02/21/2019 DATE OF DISCHARGE: 02/22/2019 PRIMARY CARE PROVIDER: iG Richardson. DISCHARGE DISPOSITION: Discharged to home. FINAL DIAGNOSES: 1. Diabetes mellitus, type 2, uncontrolled. 2. Hypertension. 3. Chronic obstructive pulmonary disease. 4. Coronary artery disease. 5. Noncompliance. 6. Tobacco abuse. DISCHARGE MEDICATIONS: 1. Aspirin 325 mg a day. 2. Plavix 75 mg a day. 3. Coreg 3.125 mg twice a day. 4. Lipitor 40 mg a day. 5. Lantus 15 units at bedtime. DIET: Heart healthy. CODE STATUS: Full. PENDING AT TIME OF DISCHARGE: Nothing. ALLERGIES: NO KNOWN DRUG ALLERGIES. HOSPITAL COURSE: The patient presented to the emergency room complaining of left upper limb numbness, tingling, weakness. He also complained of chest discomfort. He had been on multiple medications in the past, but he had stopped. He continues to smoke. His initial laboratory, blood sugars as high as 550, cardiac enzymes normal, comprehensive metabolic profile really quite unremarkable, hemoglobin A1c 16.5. Drug screen was negative. He underwent a brain MRI, which was unrevealing for acute infarct, etc. He underwent a carotid Doppler, which showed no stenosis. He underwent a nuclear medicine stress test, showed a fixed deficit. He had an echocardiogram, which showed an EF of 50% to 55%. Currently, the patient says he feels okay. Blood pressure 133/69, pulse 72, respirations 16. Cardiorespiratory exam unremarkable except for some scattered wheezes. Prescriptions have been written for the above medicines. His current blood sugars are running 179 to 277. He is being discharged. He is told he needs to see Gi Richardson in 1 week for followup. Job ID: [id number]
[2019-02-23 07:45] VITALS: BP 140/76
--- NOTE | 2019-02-24 06:58 | STRESS ---
Acquisition Time: 2019-02-22 09:53:41 Total Exercise Time: 00:01:00 Test Indications: UNSTABLE ANGINA Medications: Protocol: LEXISCAN Max HR: 085 BPM 51% of Pred: 165 BPM Max BP: 124/080 mmHG Max Work Load: 1.0 METS RESTING ECG: NORMAL SINUS RHYTHM AT 78 BPM WITH COMPLETE RIGHT BUNDLE BRANCH BLOCK SYMPTOMS: NONE NORMAL BP RESPONSE ECTOPY: NONE ECG STRESS: NO SIGNIFICANT CHANGES INTERPRETATION: NEGATIVE ECG/AWAIT NUCLEAR IMAGES FOR DEFINITIVE DIAGNOSIS Confirmed by DIMA BROWN MD ([id number]) on 02/24/2019 6:58:16 AM Referred By: MD Anastasia PRITCHETT Confirmed By:DIMA BROWN MD
== END 2019-02-22 15:40 | disposition home or self-care (01) ==
LOC: ERS 07:48 → 2SW 09:30
PROVIDERS: ADMIT Internal Medicine Nephrology; ATTEND Internal Medicine Nephrology
DX: R07.89 Other chest pain (principal); G45.9 Transient cerebral ischemic attack, unspecified; I25.119 Atherosclerotic heart disease of native coronary artery with unspecified angina pectoris; I63.9 Cerebral infarction, unspecified; G81.94 Hemiplegia, unspecified affecting left nondominant side; J93.9 Pneumothorax, unspecified; J44.9 Chronic obstructive pulmonary disease, unspecified; F17.210 Nicotine dependence, cigarettes, uncomplicated; E11.65 Type 2 diabetes mellitus with hyperglycemia; E78.5 Hyperlipidemia, unspecified; Z91.14 Patient's other noncompliance with medication regimen
CPT/HCPCS: 36415; 36416; 70551; 78452; 80048; 80061; 80306; 81001; 83036; 93005; 93017; 93306; 93880; 96360; 96361; 96372; A9500; G0378; J1650; J1825; J2704; J2785

== ENCOUNTER 2019-04-20 14:13 | Emergency (ER) | payer MEDICAID ==
[2019-04-20 14:59] LABS: Bilirubin Negative (Negative); Blood, Urine Negative (Negative); Clarity Clear (Clear); Glucose, Urine (Dipstick) Greater than 1000 mg/dL (Negative); Leukocyte Negative Leu/uL (Negative); Nitrite Negative (Negative); Protein, Urine (Dipstick) Negative (Neg-Trace); Urobilinogen Normal mg/dL (Less than 2)
[2019-04-20 15:42] LABS: Base Excess-Venous 4.5 mmol/L (-2.0 to 3.0); Bicarbonate (HCO3v) 29.3 mmol/L (22.0-28.0); Calcium, Ionized 1.08 mmol/L (See Comments:); Chloride 91 mmol/L (98-107); Hemoglobin - Calc 14.6 g/dL (14.0-18.0); Potassium 4.1 mmol/L (3.5-5.1); Sodium 129 mmol/L (138-145); T. Carbon Dioxide 30.6 mmol/L (22.0-28.0); vO2 Saturation-calc 83.5 % (60.0-85.0)
[2019-04-20 15:44] LABS: #Eosinphils 0.1 thou/uL (0.0-0.7); #Lymphocytes 2.2 thou/uL (1.20-3.40); #Monocytes 0.5 thou/uL (0.11-0.59); %Basophils 0.8 % (0.0-1.0); %Eosinophils 1.5 % (0.0-10.0); %Lymphocytes 37.8 % (21.0-51.0); %Monocytes 8.2 % (0.0-10.0); %Neutrophils 51.7 % (42.0-75.0); Hemoglobin 13.7 g/dL (14.0-18.0); Mean Corpuscular HGB CONC 33.4 g/dL (32.0-36.0); Mean Corpuscular Hemoglobin 32.2 pg (27.0-31.0); Mean Corpuscular Volume 96.2 fL (78.0-98.0); Mean Platelet Volume 7.9 fL (7.4-10.4); Platelet Count 171 thou/uL (130-400); RBC Distribution Width 12.1 % (11.5-14.5); Red Blood Cell (RBC) Count 4.26 mill/uL (4.70-6.10); White Blood Cell (WBC) Count 5.8 thou/uL (4.8-10.8)
[2019-04-20 16:09] LABS: ALT (SGPT) 9 U/L (8-55); AST (SGOT) 11 U/L (5-34); Albumin 3.5 g/dL (3.5-5.0); Alkaline Phosphatase 142 U/L (40-150); Anion Gap 12 mmol/L (10-20); BUN (Urea Nitrogen) 17 mg/dL (8.4-25.7); Bilirubin, Total 0.4 mg/dL (0.2-1.2); Calc. Creatinine Clearance 0 mL/min (70-130); Calcium 9.2 mg/dL (7.8-10.44); Carbon Dioxide 27 mmol/L (22-29); Chloride 91 mmol/L (98-107); Estimated GFR-MDRD 59; Globulin 3.2 g/dL (2.4-3.5); Magnesium 1.7 mg/dL (1.6-2.6); Phosphorus 3.6 mg/dL (2.3-4.7); Potassium 4.2 mmol/L (3.5-5.1); Protein, Total 6.7 g/dL (6.0-8.3); Sodium 126 mmol/L (136-145)
[2019-04-20 16:20] LABS: Glucose Greater than 800 mg/dL (70-105)
[2019-04-20 16:26] LABS: CKMB 1.8 ng/mL (0-6.6)
[2019-04-20] MEDS ORDERED: Aspirin Chewable 81 MG TAB ONE (17:05)
[2019-04-20] MEDS ORDERED: Insulin Regular 300 UNITS/3 ML VIAL ONE (17:05)
[2019-04-20 20:12] LABS: ALT (SGPT) 7 U/L (8-55); AST (SGOT) 9 U/L (5-34); Albumin 3.2 g/dL (3.5-5.0); Alkaline Phosphatase 131 U/L (40-150); Anion Gap 10 mmol/L (10-20); BUN (Urea Nitrogen) 15 mg/dL (8.4-25.7); Bilirubin, Total 0.2 mg/dL (0.2-1.2); Calc. Creatinine Clearance 0 mL/min (70-130); Calcium 8.9 mg/dL (7.8-10.44); Carbon Dioxide 30 mmol/L (22-29); Chloride 98 mmol/L (98-107); Estimated GFR-MDRD 85; Glucose 445 mg/dL (70-105); Potassium 3.7 mmol/L (3.5-5.1); Protein, Total 6.2 g/dL (6.0-8.3); Sodium 134 mmol/L (136-145)
== END 2019-04-20 21:49 | disposition home or self-care (01) ==
LOC: ERS 14:13
DX: E11.65 Type 2 diabetes mellitus with hyperglycemia (principal); E78.5 Hyperlipidemia, unspecified; J44.9 Chronic obstructive pulmonary disease, unspecified; I25.2 Old myocardial infarction; F17.210 Nicotine dependence, cigarettes, uncomplicated
CPT/HCPCS: 36415; 36416; 80053; 81003; 82010; 82330; 82553; 82803; 83735; 84100; 84484; 85025; 93005; 96360; 96361; J1815

== ENCOUNTER 2019-06-23 11:59 | Emergency (ER) | payer MEDICAID, OTHER ==
[2019-06-23 12:45] LABS: #Eosinphils 0.2 thou/uL (0.0-0.7); #Lymphocytes 2.3 thou/uL (1.20-3.40); #Monocytes 0.6 thou/uL (0.11-0.59); #Neutrophils 3.8 thou/uL (1.40-6.50); %Basophils 0.6 % (0.0-1.0); %Eosinophils 2.6 % (0.0-10.0); %Lymphocytes 32.6 % (21.0-51.0); %Neutrophils 55.1 % (42.0-75.0); Hemoglobin 12.7 g/dL (14.0-18.0); Mean Corpuscular Hemoglobin 31.1 pg (27.0-31.0); Mean Corpuscular Volume 91.4 fL (78.0-98.0); Mean Platelet Volume 7.3 fL (7.4-10.4); Platelet Count 175 thou/uL (130-400); RBC Distribution Width 11.6 % (11.5-14.5); Red Blood Cell (RBC) Count 4.07 mill/uL (4.70-6.10); White Blood Cell (WBC) Count 6.9 thou/uL (4.8-10.8)
[2019-06-23 13:13] LABS: ALT (SGPT) 11 U/L (8-55); AST (SGOT) 13 U/L (5-34); Albumin 3.6 g/dL (3.5-5.0); Alkaline Phosphatase 77 U/L (40-110); Anion Gap 12 mmol/L (10-20); BUN (Urea Nitrogen) 21 mg/dL (8.4-25.7); Bilirubin, Total 0.3 mg/dL (0.2-1.2); Calc. Creatinine Clearance 0 mL/min (70-130); Calcium 9.4 mg/dL (7.8-10.44); Carbon Dioxide 28 mmol/L (22-29); Chloride 103 mmol/L (98-107); Estimated GFR-MDRD Greater than 90; Globulin 3.1 g/dL (2.4-3.5); Glucose 151 mg/dL (70-105); Protein, Total 6.7 g/dL (6.0-8.3); Sodium 139 mmol/L (136-145)
--- NOTE | 2019-06-23 13:55 | RAD ---
PORTABLE CHEST: 06/23/2019 PROVIDED CLINICAL HISTORY: Hypotension. COMPARISON: 02/21/2019 FINDINGS: The cardiac and mediastinal silhouette is within normal limits. No focal consolidation, pleural fluid or pneumothorax apparent. Remote right-sided rib fractures are redemonstrated. Stable blunting of th e right costophrenic angle. IMPRESSION: No evidence for an acute cardiopulmonary process. POS: TPC
== END 2019-06-23 14:40 | disposition left against medical advice (07) ==
LOC: ERS 11:59
DX: I95.1 Orthostatic hypotension (principal); E11.9 Type 2 diabetes mellitus without complications; E78.5 Hyperlipidemia, unspecified; I10 Essential (primary) hypertension; J44.9 Chronic obstructive pulmonary disease, unspecified; F17.210 Nicotine dependence, cigarettes, uncomplicated; I25.2 Old myocardial infarction; Z86.73 Personal history of transient ischemic attack (TIA), and cerebral infarction without residual deficits; Z79.899 Other long term (current) drug therapy; Z79.4 Long term (current) use of insulin
CPT/HCPCS: 36415; 36416; 71045; 80053; 84484; 85025; 96360

== ENCOUNTER 2019-07-27 12:54 | Emergency (ER) | payer OTHER ==
[2019-07-27 13:59] LABS: #Basophils 0.1 thou/uL (0.0-0.2); #Eosinphils 0.1 thou/uL (0.0-0.7); #Lymphocytes 2.5 thou/uL (1.20-3.40); #Monocytes 0.6 thou/uL (0.11-0.59); #Neutrophils 3.3 thou/uL (1.40-6.50); %Eosinophils 2.1 % (0.0-10.0); %Lymphocytes 37.4 % (21.0-51.0); %Monocytes 9.5 % (0.0-10.0); %Neutrophils 49.9 % (42.0-75.0); Hemoglobin 13.1 g/dL (14.0-18.0); Mean Corpuscular HGB CONC 33.6 g/dL (32.0-36.0); Mean Corpuscular Hemoglobin 31.1 pg (27.0-31.0); Mean Corpuscular Volume 92.8 fL (78.0-98.0); Mean Platelet Volume 7.8 fL (7.4-10.4); Platelet Count 189 thou/uL (130-400); RBC Distribution Width 11.8 % (11.5-14.5); Red Blood Cell (RBC) Count 4.22 mill/uL (4.70-6.10); White Blood Cell (WBC) Count 6.6 thou/uL (4.8-10.8)
[2019-07-27 14:21] LABS: ALT (SGPT) 13 U/L (8-55); AST (SGOT) 9 U/L (5-34); Albumin 3.6 g/dL (3.5-5.0); Alkaline Phosphatase 95 U/L (40-110); Anion Gap 13 mmol/L (10-20); BUN (Urea Nitrogen) 19 mg/dL (8.4-25.7); Bilirubin, Total 0.2 mg/dL (0.2-1.2); Calc. Creatinine Clearance 0 mL/min (70-130); Calcium 9.2 mg/dL (7.8-10.44); Carbon Dioxide 28 mmol/L (22-29); Chloride 100 mmol/L (98-107); Estimated GFR-MDRD 79; Globulin 2.8 g/dL (2.4-3.5); Glucose 414 mg/dL (70-105); Potassium 4.7 mmol/L (3.5-5.1); Protein, Total 6.4 g/dL (6.0-8.3); Sodium 136 mmol/L (136-145)
--- NOTE | 2019-07-27 14:27 | RAD ---
PORTABLE CHEST ONE VIEW: 07/27/2019 1:51 p.m. HISTORY: Hypotension. Weakness. Blurred vision. COMPARISON: 06/23/2019 FINDINGS: The heart size is normal. Old right-sided rib fractures are again seen. The lungs are well expanded w ithout lobar consolidation, pneumothoraces or pleural effusions. There is evidence of old granulomato us disease. There is stable blunting of the right costophrenic angle. IMPRESSION: No acute process. POS: TPC
[2019-07-27 15:14] LABS: Bilirubin Negative (Negative); Blood, Urine Negative (Negative); Clarity Clear (Clear); Glucose, Urine (Dipstick) Greater than 1000 mg/dL (Negative); Leukocyte Negative Leu/uL (Negative); Nitrite Negative (Negative); Protein, Urine (Dipstick) 10 mg/dL (Neg-Trace); Urobilinogen Normal mg/dL (Less than 2)
== END 2019-07-27 16:42 | disposition home or self-care (01) ==
LOC: ERS 12:54
DX: I95.9 Hypotension, unspecified (principal); E11.22 Type 2 diabetes mellitus with diabetic chronic kidney disease; I12.9 Hypertensive chronic kidney disease with stage 1 through stage 4 chronic kidney disease, or unspecified chronic kidney disease; N18.1 Chronic kidney disease, stage 1; E78.5 Hyperlipidemia, unspecified; E78.00 Pure hypercholesterolemia, unspecified; J44.9 Chronic obstructive pulmonary disease, unspecified; I25.2 Old myocardial infarction; F17.210 Nicotine dependence, cigarettes, uncomplicated; Z79.4 Long term (current) use of insulin; Z79.899 Other long term (current) drug therapy; Z86.73 Personal history of transient ischemic attack (TIA), and cerebral infarction without residual deficits
CPT/HCPCS: 36416; 71045; 80053; 81003; 85025; 93005; 96360; 96361

== ENCOUNTER 2019-08-11 13:48 | Inpatient (IN) | payer OTHER ==
[2019-08-11] MEDS ORDERED: hydrALAZINE 20 MG/ML VIAL SLOW IVP PRN (15:03)
[2019-08-11] MEDS ORDERED: Dextrose 5% in Water 1,000 ML IV PRN (15:06)
[2019-08-11] MEDS ORDERED: HumaLOG 300 UNITS/3 ML VIAL SC PRN (15:06)
[2019-08-11] MEDS ORDERED: Dextrose 50% Abboject 50 ML SYRINGE SLOW IVP PRN (15:06)
[2019-08-11] MEDS ORDERED: Aspirin Chewable 81 MG TAB ONE ×2 (15:09→15:28)
[2019-08-11 15:41] LABS: Troponin I Less than 0.010 ng/mL (< 0.028)
--- NOTE | 2019-08-11 17:55 | MRI ---
Brain MRI without contrast: 08/11/2019 COMPARISON: 02/22/2019 HISTORY: Slurred speech, altered mental status TECHNIQUE: Multiplanar multisequence MR imaging of the brain is obtained without contrast FINDINGS: There is a small focus of restricted diffusion consistent with acute infarction within the subcortical white matter of the posterior superolateral left frontal lobe measuring approximately 8 mm. The FLAIR and T2-weighted imaging demonstrates mild increased signal intensity in this region on the basis of cytotoxic edema. The gradient echo imaging demonstrates no evidence for intracranial hemorrhage in this region. Scattered foci of increased T2 and FLAIR signal are noted within the periventricular, deep, and subco rtical white matter, evidence of small vessel disease, as seen on prior imaging. There is partial opacification of the mastoid air cells bilaterally. Arterial flow voids at the axial level of the skull base appear unremarkable on the T2-weighted imaging. Regional bone marrow signal intensity is within normal limits. IMPRESSION: Subcentimeter area of acute infarction within the left frontal lobe as described above. T here is evidence of significant small vessel disease as well.
[2019-08-11 18:03] VITALS: BMI 20.7
[2019-08-11] MEDS: Nicotine 21 MG PATCH TD SCH (19:16)
[2019-08-11 19:40] LABS: Amphetamine Detected (NotDetected); Barbiturates Screen Not Detected (NotDetected); Benzodiazepine Screen Not Detected (NotDetected); Cocaine Metabolite Screen Not Detected (NotDetected); Medtox Control Line Valid? VALID (VALID); Medtox Reader # READER 4; Methadone Not Detected (NotDetected); Methamphetamine Detected (NotDetected); Opiate Screen Not Detected (NotDetected); Oxycodone Screen Not Detected (NotDetected); Phencyclidine (PCP) Not Detected (NotDetected); THC/Cannabinoid Screen Not Detected (NotDetected); Tricyclic Screen Not Detected (NotDetected)
[2019-08-11] MEDS: Atorvastatin Calcium 40 MG TAB PO SCH (21:42)
[2019-08-11] MEDS: diphenhydrAMINE 12.5 MG/5 ML UDCUP PO PRN (22:41)
[2019-08-12] MEDS ORDERED: Ketorolac Tromethamine 30 MG/ML VIAL IVP SCH (02:15)
[2019-08-12 05:19] LABS: Cardiac Risk 2.7 (Less than 4.5)
[2019-08-12] MEDS ORDERED: Morphine 4 MG/ML VIAL SLOW IVP SCH (05:45)
[2019-08-12] MEDS: Aspirin 325 mg Enteric Coated Tablet PO SCH (10:10)
[2019-08-12] MEDS: HumaLOG 300 UNITS/3 ML VIAL SC PRN ×2 (11:35→17:42)
[2019-08-12] MEDS ORDERED: Non-Formulary Item 1 EACH (Insulin Detemir [Levemir] 20 UNIT) SQ SCH (13:25)
[2019-08-12] MEDS ORDERED: Insulin Glargine 20 UNITS in Pre-Filled Syringe SC SCH (13:30)
--- NOTE | 2019-08-12 13:54 | PDOC.HOSPP ---
- Subjective Encounter Date: 08/12/19 Encounter Time: 13:52 Subjective: Mr. Canela was seen today in follow-up of acute CVA. He notes pain at the lower edge of his rib cage. He says it is just an ache, and it started last night. He has had it before, but it usually only last a few hours. - Objective Vital Signs & Weight: Vital Signs (12 hours) Temp Pulse Pulse Pulse Pulse Pulse Resp 08/12/19 11:27 97.5 F L 88 16 08/12/19 09:17 88 08/12/19 08:48 86 90 91 93 08/12/19 08:21 97.6 F 86 18 08/12/19 03:38 97.9 F 91 16 BP BP BP BP BP BP BP 08/12/19 11:27 171/99 H 08/12/19 09:17 136/86 08/12/19 08:48 150/91 H 102/65 94/55 L 130/85 08/12/19 08:21 140/92 H 106/67 62/47 L 08/12/19 03:38 BP Pulse Ox 08/12/19 11:27 100 08/12/19 09:17 08/12/19 08:48 08/12/19 08:21 150/88 H 95 08/12/19 03:38 140/88 99 Weight Weight 166 lb 6.4 oz I&O: 08/11/19 08/12/19 08/13/19 06:59 06:59 06:59 Intake Total 700 Output Total 550 Balance 150 Additional Labs: Accuchecks 08/12/19 08/12/19 08/11/19 10:38 06:21 19:54 POC Glucose 483 H 343 H 285 H 08/11/19 16:55 POC Glucose 142 H Hospitalist ROS - Medication Medications: Active Medications Generic Name Dose Route Start Last Admin Trade Name Freq PRN Reason Stop Dose Admin Aspirin 325 mg 08/12/19 09:00 08/12/19 10:10 Ecotrin PO 325 mg DAILY SAMMIE Administration Atorvastatin Calcium 80 mg 08/11/19 21:00 08/11/19 21:42 Lipitor PO 80 mg HS SAMMIE Administration Diphenhydramine HCl 50 mg 08/11/19 22:03 08/11/19 22:41 Benadryl PO 50 mg HS PRN Administration Insomnia Insulin Human Lispro 0 units 08/11/19 15:06 08/12/19 11:35 Humalog SC 6 unit .MILD SLIDING SCALE PRN Administration Mild Correctional Scale Insulin Human Lispro 0 units 08/11/19 15:06 08/11/19 22:48 Humalog SC 3 unit .BEDTIME SLIDING SC PRN Administration Bedtime Correctional Scale Nicotine 21 mg 08/11/19 20:00 08/11/19 19:16 Nicoderm Patch TD 21 mg Q24H SAMMIE Administration Sodium Chloride 10 ml 08/11/19 15:03 08/12/19 05:56 Flush - Normal Saline IVF 10 ml PRN PRN Administration Saline Flush - Exam Eye: PERRL Heart: RRR, no murmur, no gallops, no rubs, normal peripheral pulses Respiratory: CTAB, no wheezes, no rales, no ronchi, normal chest expansion, no tachypnea, normal percussion Gastrointestinal: soft, non-tender, non-distended, normal bowel sounds Extremities: no cyanosis, no clubbing, no edema Neurological: facial droop (right facial droop) Psychiatric: normal affect, normal behavior, A&O x 3 Hosp A/P (1) Acute CVA (cerebrovascular accident) Code(s): I63.9 - CEREBRAL INFARCTION, UNSPECIFIED Status: Acute (2) DM type 2 (diabetes mellitus, type 2) Status: Acute (3) Hyperlipidemia Code(s): E78.5 - HYPERLIPIDEMIA, UNSPECIFIED Status: Chronic (4) Hypertension Code(s): I10 - ESSENTIAL (PRIMARY) HYPERTENSION Status: Chronic - Plan * Acute CVA- continue plavix, and lipitor * HTN- blood pressure is variable, and he has significant orthostasis * Still awaiting Echo and Neurology evaluation * Methamphetamine- patient denies any recent usage- says the last time was about 6 weeks ago- he has been counseled on the dangers of this * Will discuss smoking cessation * Continue PT/OT and Speech Therapy * Rib pain- I suspect thoracic radiculopathy from uncontrolled diabetes mellitus * DM- ( uncontrolled )- re-start Lantus, and continue SSI
[2019-08-12] MEDS ORDERED: Promethazine HCl 25 MG in Sodium Chloride 0.9% 50 ML IVPB PRN (14:09)
[2019-08-12] MEDS ORDERED: Mag-Al 1200 mg/1200 mg/30 ML UDCUP PO PRN (14:09)
[2019-08-12] MEDS: traMADol HCl 50 MG TAB PO PRN (14:20)
[2019-08-12] MEDS: Promethazine 25 MG TAB PO PRN (14:20)
[2019-08-12] MEDS: Gabapentin 300 MG CAP PO SCH ×2 (16:50→20:35)
[2019-08-12 20:33] LABS: #Eosinphils 0.2 thou/uL (0.0-0.7); #Lymphocytes 2.2 thou/uL (1.20-3.40); #Monocytes 0.7 thou/uL (0.11-0.59); #Neutrophils 3.8 thou/uL (1.40-6.50); %Basophils 0.3 % (0.0-1.0); %Eosinophils 2.2 % (0.0-10.0); %Lymphocytes 31.9 % (21.0-51.0); %Monocytes 10.3 % (0.0-10.0); %Neutrophils 55.4 % (42.0-75.0); Hemoglobin 11.7 g/dL (14.0-18.0); Mean Corpuscular HGB CONC 33.9 g/dL (32.0-36.0); Mean Corpuscular Hemoglobin 31.2 pg (27.0-31.0); Mean Corpuscular Volume 92.2 fL (78.0-98.0); Mean Platelet Volume 7.4 fL (7.4-10.4); Platelet Count 150 thou/uL (130-400); RBC Distribution Width 11.8 % (11.5-14.5); Red Blood Cell (RBC) Count 3.74 mill/uL (4.70-6.10); White Blood Cell (WBC) Count 6.9 thou/uL (4.8-10.8)
[2019-08-12] MEDS: Atorvastatin Calcium 40 MG TAB PO SCH (20:35)
[2019-08-12] MEDS: Nicotine 21 MG PATCH TD SCH (20:36)
[2019-08-12 20:44] LABS: Anion Gap 9 mmol/L (10-20); BUN (Urea Nitrogen) 22 mg/dL (8.4-25.7); Calc. Creatinine Clearance 140 mL/min (70-130); Calcium 8.9 mg/dL (7.8-10.44); Carbon Dioxide 32 mmol/L (22-29); Chloride 105 mmol/L (98-107); Estimated GFR-MDRD Greater than 90; Glucose 209 mg/dL (70-105); Magnesium 1.6 mg/dL (1.6-2.6); Potassium 3.9 mmol/L (3.5-5.1); Sodium 142 mmol/L (136-145)
--- NOTE | 2019-08-12 23:57 | CON ---
DATE OF CONSULTATION: 08/12/2019 CONSULTING PHYSICIAN: Hospitalist Service. IMPRESSION: 1. Lacunar stroke in the left frontal region. 2. Plavix failure. 3. Tobacco use. 4. Coronary artery disease. 5. Diabetes. 6. Prior history of stroke with ataxia. PLAN: 1. I agree with aspirin and Lipitor. 2. Review echocardiogram. HISTORY OF PRESENT ILLNESS: Mr. Canela is a 54-year-old man with a past history of a stroke. He has been stable since 2012. He gets around with the use of a cane. He has history of coronary artery disease. He previously had an ejection fraction of 38%, but reportedly is improved to 55%. He came in with complaints of transient dysarthria 2 weeks ago he had what sounded to be transient expressive aphasia. His CT angiogram did not show any carotid or intracranial stenosis. EKG showed normal sinus rhythm. He was taking Plavix for just the last few days prior to this recent attack. He has been started on aspirin and Lipitor. He reports he is back to his baseline. ALLERGIES: NONE. MEDICATION LIST: Reviewed. SOCIAL HISTORY: Positive for one pack of cigarettes every 4 days. FAMILY HISTORY: Noncontributory. REVIEW OF SYSTEMS: Ten-system review of systems is otherwise negative. PHYSICAL EXAMINATION: VITAL SIGNS: Have been stable. He is afebrile. HEENT: Pupils equal and reactive. Conjunctivae clear. Oropharynx clear. NECK: Supple. No lymphadenopathy. EXTREMITIES: No cyanosis, clubbing, or edema. NEUROLOGIC: He is alert and cooperative. His speech was fluent with a subtle dysarthric quality. Cranial nerves were intact. Motor exam showed equal strength. He can walk with the use of a cane. He had no tremor dysmetria. Sensations intact to touch bilaterally. SUMMARY: A middle-aged man with lacunar infarction. I agree with current treatment plan. He has returned to his baseline. Job ID: [id number]
[2019-08-13] MEDS: diphenhydrAMINE 12.5 MG/5 ML UDCUP PO PRN (02:01)
[2019-08-13] MEDS: HumaLOG 300 UNITS/3 ML VIAL SC PRN ×3 (06:27→17:10)
[2019-08-13] MEDS ORDERED: Clopidogrel Bisulfate 75 MG TAB PO SCH (09:00)
[2019-08-13] MEDS: traMADol HCl 50 MG TAB PO PRN ×2 (09:07→17:09)
[2019-08-13] MEDS: Gabapentin 300 MG CAP PO SCH ×3 (09:08→21:11)
[2019-08-13] MEDS: Aspirin 325 mg Enteric Coated Tablet PO SCH (09:08)
[2019-08-13] MEDS: Promethazine 25 MG TAB PO PRN ×2 (09:11→17:09)
--- NOTE | 2019-08-13 11:30 | PDOC.HOSPP ---
- Subjective Encounter Date: 08/13/19 Encounter Time: 11:22 Subjective: Mr. Canela was seen today in follow-up of acute CVA. He notes that his blood pressure dropped so low he has not been able to participate in PT. - Objective Vital Signs & Weight: Vital Signs (12 hours) Temp Pulse Resp BP BP Pulse Ox 08/13/19 09:15 98 08/13/19 07:21 97.5 F L 87 20 114/76 98 08/13/19 03:33 98.2 F 91 16 150/92 H 98 08/13/19 01:00 137/85 Weight Weight 166 lb 6.4 oz I&O: 08/12/19 08/13/19 08/14/19 06:59 06:59 06:59 Intake Total 700 Output Total 550 Balance 150 Result Diagrams: 08/12/19 20:16 08/12/19 20:16 Additional Labs: Accuchecks 08/13/19 08/12/19 08/12/19 05:51 19:19 16:48 POC Glucose 358 H 189 H 202 H Hospitalist ROS - Medication Medications: Active Medications Generic Name Dose Route Start Last Admin Trade Name Freq PRN Reason Stop Dose Admin Aspirin 325 mg 08/12/19 09:00 08/13/19 09:08 Ecotrin PO 325 mg DAILY SAMMIE Administration Atorvastatin Calcium 80 mg 08/11/19 21:00 08/12/19 20:35 Lipitor PO 80 mg HS SAMMIE Administration Diphenhydramine HCl 50 mg 08/11/19 22:03 08/13/19 02:01 Benadryl PO 50 mg HS PRN Administration Insomnia Gabapentin 300 mg 08/12/19 15:00 08/13/19 09:08 Neurontin PO 300 mg TID SAMMIE Administration Insulin Glargine 20 units/ 0.2 mls @ 0 mls/hr 08/13/19 21:00 08/12/19 20:26 Miscellaneous Medication SC Not Given HS SAMMIE Insulin Human Lispro 0 units 08/11/19 15:06 08/13/19 06:27 Humalog SC 6 unit .MILD SLIDING SCALE PRN Administration Mild Correctional Scale Insulin Human Lispro 0 units 08/11/19 15:06 08/11/19 22:48 Humalog SC 3 unit .BEDTIME SLIDING SC PRN Administration Bedtime Correctional Scale Nicotine 21 mg 08/11/19 20:00 08/12/19 20:36 Nicoderm Patch TD 21 mg Q24H SAMMIE Administration Promethazine HCl 25 mg 08/12/19 14:09 08/13/19 09:11 Phenergan PO 25 mg Q6H PRN Administration Nausea/Vomiting Sodium Chloride 10 ml 08/11/19 15:03 08/12/19 05:56 Flush - Normal Saline IVF 10 ml PRN PRN Administration Saline Flush Tramadol HCl 50 mg 08/12/19 13:24 08/13/19 09:07 Ultram PO 50 mg Q6H PRN Administration Moderate Pain (4-6) - Exam Eye: PERRL Heart: RRR, no murmur, no gallops, no rubs, normal peripheral pulses Respiratory: CTAB, no wheezes, no rales, no ronchi, normal chest expansion Gastrointestinal: soft, non-tender, non-distended, normal bowel sounds, no palpable masses, no hepatomegaly Extremities: no cyanosis, no clubbing, no edema Hosp A/P (1) Acute CVA (cerebrovascular accident) Code(s): I63.9 - CEREBRAL INFARCTION, UNSPECIFIED Status: Acute (2) DM type 2 (diabetes mellitus, type 2) Status: Acute (3) Hyperlipidemia Code(s): E78.5 - HYPERLIPIDEMIA, UNSPECIFIED Status: Chronic (4) Hypertension Code(s): I10 - ESSENTIAL (PRIMARY) HYPERTENSION Status: Chronic - Plan * Acute CVA- per Neurology recommendations he will be changed to aspirin with Lipitor * Tobacco abuse- discussed smoking cessation. He tells me he is not ready to quit smoking yet. He says he enjoys having a cigarette , especially after dinner. * HTN- will need to tolerate higher blood pressure when sitting and lying. Will add Florinef * Echo results noted * Continue PT/OT and Speech Therapy * Rib pain- I suspect thoracic radiculopathy from uncontrolled diabetes mellitus * DM- labile- his home insulin dose has been added- and continue SSI. His dose of Lantus may need to be titrated * Hopefully if his blood pressure is better standing, he can be evaluated by PT/ OT and proper discharge plans can be made.
[2019-08-13] MEDS ORDERED: Fludrocortisone Acetate 0.1 MG TAB PO SCH (11:45)
[2019-08-13] MEDS: Fludrocortisone Acetate 0.1 MG TAB PO SCH (17:11)
[2019-08-13] MEDS ORDERED: Insulin Glargine 20 UNITS in Pre-Filled Syringe SC SCH (21:00)
[2019-08-13] MEDS: Nicotine 21 MG PATCH TD SCH (21:11)
[2019-08-13] MEDS: Atorvastatin Calcium 40 MG TAB PO SCH (21:11)
[2019-08-14] MEDS: diphenhydrAMINE 12.5 MG/5 ML UDCUP PO PRN ×2 (00:25→20:24)
[2019-08-14] MEDS: HumaLOG 300 UNITS/3 ML VIAL SC PRN ×3 (06:05→17:06)
[2019-08-14] MEDS: Gabapentin 300 MG CAP PO SCH ×3 (09:14→20:24)
[2019-08-14] MEDS: Aspirin 325 mg Enteric Coated Tablet PO SCH (09:14)
[2019-08-14] MEDS: Fludrocortisone Acetate 0.1 MG TAB PO SCH (09:14)
--- NOTE | 2019-08-14 17:48 | PDOC.HOSPP ---
- Subjective Encounter Date: 08/14/19 Encounter Time: 17:47 Subjective: Patient was still reporting some dizziness while sitting in the wheelchair to go down the hallway. Orthostatics negative. He felt that his right arm and right leg were slightly more numb today. Yesterday it was just the right leg. He also said his speech may have been slurred earlier. Denies chest pain, headache, shortness of breath. PT not done due to elevated blood sugar - Objective Vital Signs & Weight: Vital Signs (12 hours) Temp Pulse Resp BP BP BP Pulse Ox 08/14/19 15:47 97.4 F L 91 20 148/94 H 94 L 08/14/19 15:15 136/85 134/81 145/90 H 08/14/19 11:24 97.6 F 88 20 130/80 94 L 08/14/19 09:22 92 L 08/14/19 07:15 97.6 F 86 20 121/76 92 L Weight Weight 166 lb 6.4 oz I&O: 08/13/19 08/14/19 08/15/19 06:59 06:59 06:59 Intake Total 555 240 Output Total 150 Balance 555 90 Result Diagrams: 08/12/19 20:16 08/12/19 20:16 Additional Labs: Accuchecks 08/14/19 08/14/19 08/14/19 16:41 11:26 05:53 POC Glucose 308 H 302 H 323 H 08/13/19 20:12 POC Glucose 197 H Hospitalist ROS - Review of Systems Constitutional: denies: fever, chills Respiratory: denies: cough Cardiovascular: denies: chest pain, edema - Medication Medications: Active Medications Generic Name Dose Route Start Last Admin Trade Name Freq PRN Reason Stop Dose Admin Aspirin 325 mg 08/12/19 09:00 08/14/19 09:14 Ecotrin PO 325 mg DAILY SAMMIE Administration Atorvastatin Calcium 80 mg 08/11/19 21:00 08/13/19 21:11 Lipitor PO 80 mg HS SAMMIE Administration Diphenhydramine HCl 50 mg 08/11/19 22:03 08/14/19 00:25 Benadryl PO 50 mg HS PRN Administration Insomnia Fludrocortisone Acetate 0.1 mg 08/13/19 09:00 08/14/19 09:14 Florinef PO 0.1 mg DAILY SAMMIE Administration Gabapentin 300 mg 08/12/19 15:00 08/14/19 15:13 Neurontin PO 300 mg TID SAMMIE Administration Insulin Glargine 20 units/ 0.2 mls @ 0 mls/hr 08/13/19 21:00 08/12/19 20:26 Miscellaneous Medication SC Not Given HS SAMMIE Insulin Human Lispro 0 units 08/11/19 15:06 08/14/19 17:06 Humalog SC 5 unit .MILD SLIDING SCALE PRN Administration Mild Correctional Scale Insulin Human Lispro 0 units 08/11/19 15:06 08/11/19 22:48 Humalog SC 3 unit .BEDTIME SLIDING SC PRN Administration Bedtime Correctional Scale Nicotine 21 mg 08/11/19 20:00 08/13/19 21:11 Nicoderm Patch TD 21 mg Q24H SAMMIE Administration Promethazine HCl 25 mg 08/12/19 14:09 08/13/19 17:09 Phenergan PO 25 mg Q6H PRN Administration Nausea/Vomiting Sodium Chloride 10 ml 08/11/19 15:03 08/14/19 09:14 Flush - Normal Saline IVF 10 ml PRN PRN Administration Saline Flush Tramadol HCl 50 mg 08/12/19 13:24 08/13/19 17:09 Ultram PO 50 mg Q6H PRN Administration Moderate Pain (4-6) - Exam General Appearance: NAD, awake alert Eye: PERRL, anicteric sclera ENT: normocephalic atraumatic, no oropharyngeal lesions Neck: supple, symmetric, no JVD, no thyromegaly Heart: RRR, no murmur, no gallops, no rubs Respiratory: CTAB, no wheezes, no rales, no ronchi Gastrointestinal: soft, non-tender, non-distended, normal bowel sounds Extremities: no cyanosis, no clubbing, no edema Skin: normal turgor, no lesions, no rashes Neurological: cranial nerve grossly intact, normal sensation to touch, no focal deficits, no new deficit Musculoskeletal: normal tone, normal strength, no muscle wasting Musculoskeletal - other findings: 5/5 strength in upper and lower extremities. Psychiatric: normal affect, normal behavior, A&O x 3, oriented to person Hosp A/P - Plan MRI: left frontal lobe infarction ECHO: EF 50-55% with mild MR, Mild TR Acute left frontal lobe stroke - continue aspirin and high dose atorvastatin. MRI showed left frontal infarction - ECHO showed no thrombus - still symptomatic with dizziness while ambulating. Patient refuses rehab Orthostatic hypotension - improved -on florinef, orthostatics negative today - continue working with PT Type II DM - blood sugars in the 300's - increase lantus to 22 units - change sliding scale to medium sliding scale CAD - continue aspirin and statin Dispo: d/c when able to ambulate better
[2019-08-14] MEDS: Atorvastatin Calcium 40 MG TAB PO SCH (20:24)
[2019-08-14] MEDS: Nicotine 21 MG PATCH TD SCH (20:27)
[2019-08-15] MEDS: Promethazine 25 MG TAB PO PRN ×3 (00:47→13:57)
[2019-08-15] MEDS: traMADol HCl 50 MG TAB PO PRN ×4 (00:47→20:32)
[2019-08-15] MEDS: diphenhydrAMINE 12.5 MG/5 ML UDCUP PO PRN ×2 (02:17→20:42)
[2019-08-15 05:24] LABS: Hemoglobin 11.4 g/dL (14.0-18.0); Mean Corpuscular HGB CONC 33.5 g/dL (32.0-36.0); Mean Corpuscular Hemoglobin 31.9 pg (27.0-31.0); Mean Corpuscular Volume 95.1 fL (78.0-98.0); Mean Platelet Volume 8.2 fL (7.4-10.4); Platelet Count 146 thou/uL (130-400); RBC Distribution Width 11.8 % (11.5-14.5); Red Blood Cell (RBC) Count 3.58 mill/uL (4.70-6.10)
[2019-08-15 05:44] LABS: ALT (SGPT) 15 U/L (8-55); AST (SGOT) 10 U/L (5-34); Albumin 3.2 g/dL (3.5-5.0); Alkaline Phosphatase 107 U/L (40-110); Anion Gap 10 mmol/L (10-20); BUN (Urea Nitrogen) 16 mg/dL (8.4-25.7); Bilirubin, Total 0.2 mg/dL (0.2-1.2); Calc. Creatinine Clearance 124 mL/min (70-130); Calcium 8.8 mg/dL (7.8-10.44); Carbon Dioxide 32 mmol/L (22-29); Chloride 103 mmol/L (98-107); Estimated GFR-MDRD Greater than 90; Globulin 2.7 g/dL (2.4-3.5); Glucose 483 mg/dL (70-105); Potassium 3.6 mmol/L (3.5-5.1); Protein, Total 5.9 g/dL (6.0-8.3); Sodium 141 mmol/L (136-145)
[2019-08-15] MEDS: HumaLOG 300 UNITS/3 ML VIAL SC PRN ×3 (06:10→17:26)
[2019-08-15] MEDS ORDERED: Insulin Glargine 22 UNITS in Pre-Filled Syringe SC SCH (09:00)
[2019-08-15] MEDS: Aspirin 325 mg Enteric Coated Tablet PO SCH (09:08)
[2019-08-15] MEDS: Fludrocortisone Acetate 0.1 MG TAB PO SCH (09:08)
[2019-08-15] MEDS: Gabapentin 300 MG CAP PO SCH ×3 (09:08→20:34)
[2019-08-15] MEDS ORDERED: Insulin Glargine 5 UNITS in Pre-Filled Syringe 1 EACH SC SCH (11:15)
[2019-08-15] MEDS ORDERED: Fludrocortisone Acetate 0.1 MG TAB PO SCH (11:45)
--- NOTE | 2019-08-15 11:46 | PDOC.HOSPP ---
- Subjective Encounter Date: 08/15/19 Encounter Time: 11:30 Subjective: The patient is doing better. Still reported some dizziness while standing. He also reports tingling in his arms and feet and weakness while walking. Blood sugar was elevated, patient was seen eating pasta and potatoes for lunch. Advised to avoid starchy foods. - Objective Vital Signs & Weight: Vital Signs (12 hours) Temp Pulse Resp BP Pulse Ox 08/15/19 07:54 97.6 F 91 16 118/83 96 08/15/19 07:30 96 08/15/19 04:00 98.1 F 97 16 139/78 93 L 08/15/19 00:00 98.0 F 95 13 156/84 H 92 L Weight Weight 166 lb 6.4 oz I&O: 08/14/19 08/15/19 08/16/19 06:59 06:59 06:59 Intake Total 555 240 300 Output Total 150 Balance 555 90 300 Result Diagrams: 08/15/19 04:41 08/15/19 04:41 Additional Labs: Accuchecks 08/15/19 08/15/19 08/14/19 10:42 06:07 20:05 POC Glucose 399 H 331 H 267 H 08/14/19 16:41 POC Glucose 308 H Hospitalist ROS - Review of Systems Constitutional: denies: fever, chills - Medication Medications: Active Medications Generic Name Dose Route Start Last Admin Trade Name Freq PRN Reason Stop Dose Admin Aspirin 325 mg 08/12/19 09:00 08/15/19 09:08 Ecotrin PO 325 mg DAILY SAMMIE Administration Atorvastatin Calcium 80 mg 08/11/19 21:00 08/14/19 20:24 Lipitor PO 80 mg HS SAMMIE Administration Diphenhydramine HCl 50 mg 08/11/19 22:03 08/15/19 02:17 Benadryl PO 50 mg HS PRN Administration Insomnia Gabapentin 300 mg 08/12/19 15:00 08/15/19 09:08 Neurontin PO 300 mg TID SAMMIE Administration Insulin Glargine 5 units/ 0.05 mls @ 0 mls/hr 08/15/19 11:15 08/15/19 11:27 Miscellaneous Medication SC 08/15/19 13:15 0.05 mls NOW SAMMIE Administration Insulin Human Lispro 0 units 08/14/19 17:52 08/15/19 10:46 Humalog SC 10 unit .MODERATE SLIDING SC PRN Administration Moderate Correctional Scale Nicotine 21 mg 08/11/19 20:00 08/14/19 20:27 Nicoderm Patch TD 21 mg Q24H SAMMIE Administration Promethazine HCl 25 mg 08/12/19 14:09 08/15/19 07:36 Phenergan PO 25 mg Q6H PRN Administration Nausea/Vomiting Sodium Chloride 10 ml 08/11/19 15:03 08/14/19 09:14 Flush - Normal Saline IVF 10 ml PRN PRN Administration Saline Flush Tramadol HCl 50 mg 08/12/19 13:24 08/15/19 07:36 Ultram PO 50 mg Q6H PRN Administration Moderate Pain (4-6) - Exam General Appearance: NAD, awake alert Eye: PERRL, anicteric sclera ENT: normocephalic atraumatic, no oropharyngeal lesions Neck: supple, symmetric, no JVD, no thyromegaly Heart: RRR, no murmur, no gallops, no rubs Respiratory: CTAB, no wheezes, no rales, no ronchi, normal chest expansion, normal percussion Gastrointestinal: soft, non-tender, non-distended Extremities: no cyanosis, no clubbing, no edema Skin: normal turgor, no lesions, no rashes Neurological: cranial nerve grossly intact, normal sensation to touch, no weakness, no focal deficits, no new deficit Musculoskeletal: normal tone, normal strength, no muscle wasting Psychiatric: normal affect, normal behavior, A&O x 3, oriented to person, oriented to time Hosp A/P - Plan MRI: left frontal lobe infarction ECHO: EF 50-55% with mild MR, Mild TR Acute left frontal lobe stroke - continue aspirin and high dose atorvastatin. MRI showed left frontal infarction - ECHO showed no thrombus - still symptomatic with dizziness while ambulating. Patient refuses rehab - appreciate PT eval Orthostatic hypotension - positive today -on florinef, orthostatics positive - will increase dose to 0.25 mg, give an extra dos enow - continue working with PT Type II DM - blood sugars in the 300's. Increase lantus to 27 units daily - medium dose sliding scale -advised patient to avoid starchy food and eat vegetables and meat more instead CAD - continue aspirin and statin Dispo: d/c when able to ambulate better
[2019-08-15] MEDS: Atorvastatin Calcium 40 MG TAB PO SCH (20:33)
[2019-08-15] MEDS: Nicotine 21 MG PATCH TD SCH (20:34)
[2019-08-16 05:12] LABS: Hemoglobin 11.5 g/dL (14.0-18.0); Mean Corpuscular HGB CONC 33.7 g/dL (32.0-36.0); Mean Corpuscular Hemoglobin 31.6 pg (27.0-31.0); Mean Corpuscular Volume 93.9 fL (78.0-98.0); Mean Platelet Volume 7.8 fL (7.4-10.4); Platelet Count 138 thou/uL (130-400); RBC Distribution Width 12.1 % (11.5-14.5); Red Blood Cell (RBC) Count 3.62 mill/uL (4.70-6.10); White Blood Cell (WBC) Count 5.4 thou/uL (4.8-10.8)
[2019-08-16 05:36] LABS: Anion Gap 10 mmol/L (10-20); BUN (Urea Nitrogen) 19 mg/dL (8.4-25.7); Calc. Creatinine Clearance 154 mL/min (70-130); Calcium 8.5 mg/dL (7.8-10.44); Carbon Dioxide 29 mmol/L (22-29); Chloride 102 mmol/L (98-107); Estimated GFR-MDRD Greater than 90; Glucose 225 mg/dL (70-105); Potassium 3.6 mmol/L (3.5-5.1); Sodium 137 mmol/L (136-145)
[2019-08-16] MEDS: HumaLOG 300 UNITS/3 ML VIAL SC PRN ×2 (06:26→17:56)
[2019-08-16] MEDS: Aspirin 325 mg Enteric Coated Tablet PO SCH (09:37)
[2019-08-16] MEDS: Promethazine 25 MG TAB PO PRN (09:37)
[2019-08-16] MEDS: Gabapentin 300 MG CAP PO SCH ×3 (09:37→21:39)
[2019-08-16] MEDS: traMADol HCl 50 MG TAB PO PRN ×2 (09:38→21:31)
[2019-08-16] MEDS: Fludrocortisone Acetate 0.1 MG TAB PO SCH (09:38)
[2019-08-16] MEDS: Insulin Glargine 27 UNITS in Pre-Filled Syringe 1 EACH SC SCH (09:39)
[2019-08-16] MEDS ORDERED: Sodium Chloride 0.9% 250 ML IV SCH (11:45)
[2019-08-16] MEDS ORDERED: Midodrine HCl 5 MG TAB PO SCH (15:30)
--- NOTE | 2019-08-16 18:45 | PDOC.HOSPP ---
- Subjective Encounter Date: 08/16/19 Encounter Time: 12:00 Subjective: The patient is doing better. Says his left leg is wobbly from old stroke. Right leg is a little better. Still dizzy when he stands. orthostatics positive this am, gave 250 cc bolus. Still orthostatic, given midodrine 2.5 mg. Patient still orthostatic and unsteady when he walks. Therefore trial of IV hydration Patient denies tingling or numbness in his extremities, headaches, new deficits - Objective Vital Signs & Weight: Vital Signs (12 hours) Temp Pulse Pulse Pulse Pulse Pulse Resp 08/16/19 17:05 08/16/19 15:18 98.6 F 89 20 08/16/19 14:03 08/16/19 11:03 97.9 F 85 16 08/16/19 10:04 83 86 86 82 08/16/19 07:40 08/16/19 07:09 97.6 F 83 20 BP BP BP BP BP BP BP 08/16/19 17:05 127/78 104/61 139/88 08/16/19 15:18 128/80 08/16/19 14:03 121/80 111/67 139/86 08/16/19 11:03 127/80 105/69 130/83 08/16/19 10:04 135/82 111/70 96/70 118/80 08/16/19 07:40 08/16/19 07:09 125/80 Pulse Ox 08/16/19 17:05 08/16/19 15:18 87 L 08/16/19 14:03 08/16/19 11:03 96 08/16/19 10:04 08/16/19 07:40 93 L 08/16/19 07:09 93 L Weight Weight 166 lb 6.4 oz I&O: 08/15/19 08/16/19 08/17/19 06:59 06:59 06:59 Intake Total 240 900 450 Output Total 150 Balance 90 900 450 Result Diagrams: 08/16/19 04:48 08/16/19 04:48 Additional Labs: Accuchecks 08/16/19 08/16/19 08/16/19 16:23 10:27 05:57 POC Glucose 222 H 135 H 203 H 08/15/19 19:55 POC Glucose 172 H Hospitalist ROS - Review of Systems Constitutional: denies: fever Respiratory: denies: cough, dry - Medication Medications: Active Medications Generic Name Dose Route Start Last Admin Trade Name Jayden PRN Reason Stop Dose Admin Aspirin 325 mg 08/12/19 09:00 08/16/19 09:37 Ecotrin PO 325 mg DAILY SAMMIE Administration Atorvastatin Calcium 80 mg 08/11/19 21:00 08/15/19 20:33 Lipitor PO 80 mg HS SAMMIE Administration Diphenhydramine HCl 50 mg 08/11/19 22:03 08/15/19 20:42 Benadryl PO 50 mg HS PRN Administration Insomnia Fludrocortisone Acetate 0.2 mg 08/16/19 09:00 08/16/19 09:38 Florinef PO 0.2 mg DAILY SAMMIE Administration Gabapentin 300 mg 08/12/19 15:00 08/16/19 16:05 Neurontin PO 300 mg TID SAMMIE Administration Insulin Glargine 27 units/ 0.27 mls @ 0 mls/hr 08/16/19 09:00 08/16/19 09:39 Miscellaneous Medication SC 0.27 mls QAM SAMMIE Administration Insulin Human Lispro 0 units 08/14/19 17:52 08/16/19 17:56 Humalog SC 4 unit .MODERATE SLIDING SC PRN Administration Moderate Correctional Scale Nicotine 21 mg 08/11/19 20:00 08/15/19 20:34 Nicoderm Patch TD 21 mg Q24H SAMMIE Administration Promethazine HCl 25 mg 08/12/19 14:09 08/16/19 09:37 Phenergan PO 25 mg Q6H PRN Administration Nausea/Vomiting Sodium Chloride 10 ml 08/11/19 15:03 08/14/19 09:14 Flush - Normal Saline IVF 10 ml PRN PRN Administration Saline Flush Tramadol HCl 50 mg 08/12/19 13:24 08/16/19 09:38 Ultram PO 50 mg Q6H PRN Administration Moderate Pain (4-6) - Exam General Appearance: NAD, awake alert Eye: PERRL, anicteric sclera ENT: normocephalic atraumatic, no oropharyngeal lesions Neck: supple, symmetric, no JVD, no thyromegaly Heart: RRR, no murmur, no gallops, no rubs Respiratory: CTAB, no wheezes, no rales, no ronchi Gastrointestinal: soft, non-tender, non-distended, normal bowel sounds Extremities: no cyanosis, no clubbing, no edema Skin: normal turgor, no lesions, no rashes Neurological: cranial nerve grossly intact, normal sensation to touch, no focal deficits, no new deficit Musculoskeletal: normal tone, normal strength, no muscle wasting Psychiatric: normal affect, normal behavior, A&O x 3, oriented to person, oriented to place, oriented to time Hosp A/P - Plan MRI: left frontal lobe infarction ECHO: EF 50-55% with mild MR, Mild TR Acute left frontal lobe stroke - continue aspirin and high dose atorvastatin. MRI showed left frontal infarction - ECHO showed no thrombus - still symptomatic with dizziness while ambulating. Patient refuses rehab - continue PT, patient is not candidate for home health. Orthostatic hypotension - positive today -on florinef, increased the dose to 0.2 mg - add midodrine 2.5 mg with no improvement . Will hydrate with 75 ml/hour for one day and re-evaluate Type II DM - blood sugars 130-220. Continue lantus 27 units daily . - medium dose sliding scale -advised patient to avoid starchy food and eat vegetables and meat more instead CAD - continue aspirin and statin Dispo: d/c when able to ambulate better and not symptomatic from orthostatic hypotension
[2019-08-16] MEDS: Sodium Chloride 0.9% 1,000 ML IV SCH (19:15)
[2019-08-16] MEDS: Nicotine 21 MG PATCH TD SCH (21:31)
[2019-08-16] MEDS: Atorvastatin Calcium 40 MG TAB PO SCH (21:39)
[2019-08-16] MEDS: diphenhydrAMINE 12.5 MG/5 ML UDCUP PO PRN (23:09)
[2019-08-17] MEDS: HumaLOG 300 UNITS/3 ML VIAL SC PRN ×2 (06:32→12:16)
[2019-08-17] MEDS: Sodium Chloride 0.9% 1,000 ML IV SCH (09:45)
[2019-08-17] MEDS: Gabapentin 300 MG CAP PO SCH ×2 (09:46→15:06)
[2019-08-17] MEDS: Insulin Glargine 27 UNITS in Pre-Filled Syringe 1 EACH SC SCH (09:46)
[2019-08-17] MEDS: Aspirin 325 mg Enteric Coated Tablet PO SCH (09:46)
[2019-08-17] MEDS: Fludrocortisone Acetate 0.1 MG TAB PO SCH (09:46)
[2019-08-17] MEDS: traMADol HCl 50 MG TAB PO PRN ×2 (09:50→15:08)
[2019-08-17 15:47] VITALS: BP 141/84; TEMP 97.8
--- NOTE | 2019-08-17 17:38 | EKG ---
Test Reason : STAT Blood Pressure : / mmHG Vent. Rate : 086 BPM Atrial Rate : 086 BPM P-R Int : 180 ms QRS Dur : 148 ms QT Int : 408 ms P-R-T Axes : 051 085 077 degrees QTc Int : 488 ms Normal sinus rhythm Right bundle branch block Abnormal ECG When compared with ECG of 11-AUG-2019 14:16, (Unconfirmed) Premature ventricular complexes are no longer Present Borderline criteria for Inferior infarct are no longer Present Confirmed by ALPHONSO BLUNT (2) on 08/17/2019 5:37:54 PM Referred By: [place] Confirmed By:ALPHONSO BLUNT
== END 2019-08-17 17:48 | disposition home or self-care (01) | DRG 66 ==
LOC: ERS 13:48 → OBSVTOIN 16:13 → 2SE 16:13
PROVIDERS: ADMIT Internal Medicine; ATTEND Internal Medicine
DX: I63.81 Other cerebral infarction due to occlusion or stenosis of small artery (principal); E78.5 Hyperlipidemia, unspecified; I10 Essential (primary) hypertension; I95.1 Orthostatic hypotension; R47.81 Slurred speech; I25.10 Atherosclerotic heart disease of native coronary artery without angina pectoris; F17.210 Nicotine dependence, cigarettes, uncomplicated; Z79.02 Long term (current) use of antithrombotics/antiplatelets; E11.65 Type 2 diabetes mellitus with hyperglycemia; I69.393 Ataxia following cerebral infarction
CPT/HCPCS: 36415; 36416; 70551; 80048; 80053; 80061; 80306; 83735; 85025; 85027; 90471; 90732; 93005; 93010; 93306; G0009; J1815; J1885; J2270; Q0163; Q0169

== ENCOUNTER 2019-11-10 11:56 | Observation (INO) | payer OTHER ==
[2019-11-10] MEDS ORDERED: Acetaminophen 500 MG TAB ONE (12:18)
[2019-11-10 12:35] LABS: #Eosinphils 0.1 thou/uL (0.0-0.7); #Lymphocytes 1.5 thou/uL (1.20-3.40); #Monocytes 0.6 thou/uL (0.11-0.59); #Neutrophils 4.4 thou/uL (1.40-6.50); %Basophils 0.5 % (0.0-1.0); %Eosinophils 1.4 % (0.0-10.0); %Lymphocytes 22.5 % (21.0-51.0); %Monocytes 8.9 % (0.0-10.0); %Neutrophils 66.8 % (42.0-75.0); Hemoglobin 14.4 g/dL (14.0-18.0); Mean Corpuscular HGB CONC 33.9 g/dL (32.0-36.0); Mean Corpuscular Hemoglobin 31.4 pg (27.0-31.0); Mean Corpuscular Volume 92.5 fL (78.0-98.0); Mean Platelet Volume 8.2 fL (7.4-10.4); Platelet Count 156 thou/uL (130-400); RBC Distribution Width 12.2 % (11.5-14.5); Red Blood Cell (RBC) Count 4.59 mill/uL (4.70-6.10); White Blood Cell (WBC) Count 6.6 thou/uL (4.8-10.8)
[2019-11-10 12:58] LABS: ALT (SGPT) 15 U/L (8-55); AST (SGOT) 19 U/L (5-34); Albumin 3.5 g/dL (3.5-5.0); Alkaline Phosphatase 85 U/L (40-110); Anion Gap 13 mmol/L (10-20); BUN (Urea Nitrogen) 19 mg/dL (8.4-25.7); Bilirubin, Total 0.2 mg/dL (0.2-1.2); Calc. Creatinine Clearance 0 mL/min (70-130); Calcium 8.8 mg/dL (7.8-10.44); Carbon Dioxide 25 mmol/L (22-29); Chloride 106 mmol/L (98-107); Estimated GFR-MDRD Greater than 90; Globulin 2.7 g/dL (2.4-3.5); Glucose 65 mg/dL (70-105); Potassium 4.2 mmol/L (3.5-5.1); Protein, Total 6.2 g/dL (6.0-8.3); Sodium 140 mmol/L (136-145)
[2019-11-10 13:23] LABS: CKMB 2.5 ng/mL (0-6.6)
--- NOTE | 2019-11-10 13:53 | CT ---
CT BRAIN PERFORMED WITHOUT CONTRAST ENHANCEMENT: Date: 11/10/2019 HISTORY: Patient had a syncopal episode, reports hitting head. COMPARISON: 02/21/2019 exam. FINDINGS: The ventricular and cisternal system is within normal limits. An old thalamic infarct on the right is stable. There are some chronic appearing white matter changes noted. There are no signs of intracere bral hemorrhage or extra-axial fluid collections. The mastoid air cells and visualized sinuses appear clear. IMPRESSION: No acute intracranial abnormalities. POS: T[facility]
--- NOTE | 2019-11-10 14:03 | RAD ---
PA AND LATERAL CHEST: Date: 11/10/2019 HISTORY: Chest pain. Patient has been having syncopal episodes and fell at home. COMPARISON: 08/19/19 exam. FINDINGS: Heart size is within normal limits. There are radiographic changes of COPD. There is evidence of calc ified granulomas. Some persistent blunting to the right costophrenic angle is similar to the prior st udy, although the fluid within the fissure seen on the prior examination has resolved. IMPRESSION: Chronic appearing lung change. Some residual right-sided effusion noted. POS: T[facility]
[2019-11-10] MEDS ORDERED: Aspirin Chewable 81 MG TAB ONE (14:23)
[2019-11-10] MEDS ORDERED: Iopamidol-370 76% 500 ML 1 ML ONE (14:44)
--- NOTE | 2019-11-10 15:10 | CT ---
CT ANGIOGRAM THORAX WITH IV CONTRAST AND 3-D RECONSTRUCTIONS CLINICAL INDICATION: Syncope. Patient states blacked out and hit head. Low blood pressure. COMPARISON: 08/11/2019 FINDINGS: Pulmonary arteries: No filling defects are seen in the pulmonary arteries to suggest a pulmonary embo windy. Aorta: Vascular calcifications are seen in the thoracic aorta as well as involving the coronary arter ies. Lungs: There has been resolution of the left pleural effusion as well as the right pleural fluid sharmaine ection. There is partially calcified pleural-based thickening seen involving the posterior right chest from the level of the right midlung zone to the right lung base. Minimal emphysematous changes are seen in the upper lobes. There is mild right apical pleural and parenchymal scarring again noted. Few calcified granulomata are seen in the lungs bilaterally. No discrete noncalcified pulmonar y nodule, mass, or new pleural effusion is seen. There is peribronchial thickening in the right lower lobe with filling defects in a few right lower l obe bronchi/bronchioles which may be related to mucous plugging. Reticulonodular densities are seen at the posterior right lung base which could be related to infectious or inflammatory process. No con solidation is seen. Mediastinum: Calcified mediastinal and bilateral hilar lymph nodes are seen. There is mild prominence of soft tissue density in each hilar region also seen on the prior exam suggesting lymphadenopathy. Minimal pericardial effusion is again identified. Thyroid gland: Grossly normal in appearance where imaged. Osseous structures: Remote right-sided rib deformities are again seen. Chest wall: Minimal subcutaneous edema is present. Upper abdomen: Calcified granulomata are seen in the spleen. The remainder of the visualized upper ab domen is grossly normal in appearance for phase of imaging. IMPRESSION: 1. Peribronchial thickening right lower lobe likely related to inflammatory process. Filling defects are seen in right lower lobe bronchi/bronchioles which may related to mucous plugging. Reticulonodular densities are also seen in the right lower lobe suggesting infectious or inflammatory process. 2. Partially calcified pleural-based thickening posterior right lung base. 3. Resolution of left pleural effusion and right pleural fluid collection. 4. Stable minimal pericardial effusion. 5. No CT evidence of a pulmonary embolus.
[2019-11-10] MEDS ORDERED: Ondansetron PF 4 MG/2 ML Vial IVP PRN (15:38)
[2019-11-10] MEDS ORDERED: Dextrose 50% Abboject 50 ML SYRINGE SLOW IVP PRN (15:41)
[2019-11-10] MEDS ORDERED: Dextrose 5% in Water 1,000 ML IV PRN (15:41)
--- NOTE | 2019-11-10 15:58 | HP ---
PRIMARY CARE PROVIDER: Gi Richardson. CHIEF COMPLAINT: Syncope. HISTORY OF PRESENT ILLNESS: Mr. Canela is a pleasant 54-year-old gentleman, who was seen at [facility] on November 10, 2019. He was hospitalized at this facility from August 11, 2019 to August 17, 2019, for acute left frontal lobe stroke, or orthostatic hypotension. He reports that he was doing well until today. Today, he went to use the bathroom. After having a bowel movement, he tried to stand up. He felt dizzy and passed out. It is unclear how long he lost consciousness. He eventually regained consciousness and presented to [facility]. There, his blood pressure was found to be 60/40 and he was pale with weak pulses. EMS was called. The patient improved in terms of blood pressure with a 1 L normal saline. The patient reports left chest wall pain and attributes it to the fall. He reports that the pain is better. REVIEW OF SYSTEMS: All systems were reviewed and found to be negative except for the pertinent positives mentioned above. PAST MEDICAL HISTORY: CVA x2, hypertension, [place] x2, COPD, and orthostatic hypotension. PAST SURGICAL HISTORY: Collapsed lung surgery; dental surgery; and finger amputation, 2nd and 3rd digits on the right hand. PSYCHIATRIC HISTORY: Depression. SOCIAL HISTORY: The patient used marijuana and methamphetamines in the past. He smokes 5 to 6 cigarettes a day. He denies alcohol use. FAMILY HISTORY: He reports enlarged heart in his father. ALLERGIES: NO KNOWN DRUG ALLERGIES. CURRENT MEDICATIONS: 1. Gabapentin 300 mg daily. 2. Aspirin 81 mg daily. 3. Midodrine 2.5 mg 3 times a day. 4. Levemir insulin 27 units daily. PHYSICAL EXAMINATION: GENERAL: On examination, Mr. Canela is awake and alert, not in acute distress. VITAL SIGNS: Blood pressure while lying is 126/78, while sitting is 83/56; pulse 79; respiratory rate 20; and oxygen saturation 98% on room air. He is afebrile. EYES: No scleral icterus. No conjunctival pallor. ENT: Moist mucosal membranes. No oropharyngeal erythema or exudates. NECK: Supple, nontender. Trachea is midline. RESPIRATORY: Accessory muscles of breathing are not active. Chest wall movements are symmetric bilaterally. Lungs are clear to auscultation without wheeze, rhonchi, or crepitations. CARDIOVASCULAR: S1 and S2 are heard, regular. Peripheral pulses palpable. ABDOMEN: Soft, nontender. Bowel sounds are heard. NEUROLOGIC: Cranial nerves II through XII are intact. MUSCULOSKELETAL: Missing distal phalanges on right 2nd and 3rd fingers. He also has reproducible chest wall tenderness over the left side of the chest. SKIN: No rashes. LYMPHATIC: No cervical lymphadenopathy. PSYCHIATRIC: Normal mood, normal affect. The patient is oriented to person, place, and time. DIAGNOSTIC DATA: Mr. Canela' labs and investigations were reviewed. I reviewed his electrocardiogram, which shows normal sinus rhythm, right bundle-branch block, also seen on old electrocardiograms. No ST changes to suggest an acute coronary syndrome. I reviewed his chest x-ray, which does not show any pulmonary infiltrates. He had CT angiogram of the chest, which did not show any evidence of pulmonary embolism. He has peribronchial thickening of the right lower lobe, likely related to inflammatory process. Filling defects are seen in right lower lobe bronchus/bronchials, which may be related to mucous plugging. He has an unremarkable CBC. Normal electrolytes, creatinine 0.65. Indeterminate troponin I of 0.054, troponin I was less than 0.010 on August 21, 2019. Normal LFTs. ASSESSMENT AND PLAN: Mr. Canela is a pleasant 54-year-old gentleman, who was seen at [facility] on November 10, 2019. His problem list includes: 1. Syncope: Most likely related to orthostatic hypotension. There could be some vasovagal component to it as well, given the circumstances under which the syncopal episode occurred. He will be admitted to the hospital for further management. I will continue his midodrine. I will add cortisol level to the blood work in the lab and start him on Florinef as well. 2. Elevated troponin: Etiology is unclear. He does have a significant cardiac history with myocardial infarction as well as percutaneous coronary intervention with stents. He had a Cardiolite scan in February 2019, which did not show any evidence of ischemia. I will trend his troponins for now and consult Cardiology Service for their opinion and help with management. 3. Diabetes mellitus, type 2: I will start him on Accu-Cheks and insulin sliding scale. 4. Hypertension: We will monitor vital signs and titrate antihypertensives as needed. 5. Tobacco use: The patient has been counseled regarding tobacco cessation. I will start him on nicotine replacement therapy. Many thanks for allowing me to participate in your patient's care. Please feel free to contact me with any questions or concerns. LEVEL OF RISK: High. LEVEL OF COMPLEXITY: High. Job ID: [id number]
[2019-11-10 17:16] LABS: Troponin I 0.035 ng/mL (< 0.028)
[2019-11-10] MEDS ORDERED: Nicotine 14 MG PATCH ONE (18:28)
[2019-11-10] MEDS: Nicotine 14 MG PATCH TD SCH (18:41)
[2019-11-10 20:32] VITALS: BMI 20.5
[2019-11-10 20:53] LABS: Troponin I 0.025 ng/mL (< 0.028)
[2019-11-10] MEDS: Midodrine HCl 5 MG TAB PO SCH (21:03)
[2019-11-10] MEDS: Atorvastatin Calcium 40 MG TAB PO SCH (21:03)
[2019-11-10] MEDS: Gabapentin 300 MG CAP PO SCH (21:03)
[2019-11-10] MEDS: traMADol HCl 50 MG TAB PO PRN (22:09)
[2019-11-11 00:12] LABS: Amphetamine Detected (NotDetected); Barbiturates Screen Not Detected (NotDetected); Benzodiazepine Screen Not Detected (NotDetected); Cocaine Metabolite Screen Not Detected (NotDetected); Medtox Control Line Valid? VALID (VALID); Medtox Reader # READER 4; Methadone Not Detected (NotDetected); Methamphetamine Detected (NotDetected); Opiate Screen Not Detected (NotDetected); Oxycodone Screen Not Detected (NotDetected); Phencyclidine (PCP) Not Detected (NotDetected); THC/Cannabinoid Screen Not Detected (NotDetected); Tricyclic Screen Not Detected (NotDetected)
[2019-11-11] MEDS: traMADol HCl 50 MG TAB PO PRN ×4 (02:17→17:50)
[2019-11-11] MEDS ORDERED: HumaLOG 300 UNITS/3 ML VIAL SC PRN (03:59)
[2019-11-11 05:10] LABS: #Eosinphils 0.1 thou/uL (0.0-0.7); #Lymphocytes 1.1 thou/uL (1.20-3.40); #Monocytes 0.5 thou/uL (0.11-0.59); #Neutrophils 3.1 thou/uL (1.40-6.50); %Basophils 0.4 % (0.0-1.0); %Eosinophils 2.1 % (0.0-10.0); %Lymphocytes 22.5 % (21.0-51.0); %Monocytes 10.6 % (0.0-10.0); %Neutrophils 64.4 % (42.0-75.0); Hemoglobin 12.1 g/dL (14.0-18.0); Mean Corpuscular HGB CONC 33.6 g/dL (32.0-36.0); Mean Corpuscular Hemoglobin 30.9 pg (27.0-31.0); Mean Corpuscular Volume 92.1 fL (78.0-98.0); Mean Platelet Volume 8.2 fL (7.4-10.4); Platelet Count 147 thou/uL (130-400); RBC Distribution Width 12.1 % (11.5-14.5); White Blood Cell (WBC) Count 4.8 thou/uL (4.8-10.8)
[2019-11-11 05:32] LABS: Anion Gap 10 mmol/L (10-20); BUN (Urea Nitrogen) 17 mg/dL (8.4-25.7); Calc. Creatinine Clearance 118 mL/min (70-130); Calcium 8.4 mg/dL (7.8-10.44); Carbon Dioxide 29 mmol/L (22-29); Chloride 102 mmol/L (98-107); Estimated GFR-MDRD Greater than 90; Glucose 379 mg/dL (70-105); Potassium 3.7 mmol/L (3.5-5.1); Sodium 137 mmol/L (136-145)
[2019-11-11] MEDS: HumaLOG 300 UNITS/3 ML VIAL SC PRN ×3 (06:22→17:51)
[2019-11-11] MEDS: Midodrine HCl 5 MG TAB PO SCH ×3 (09:07→20:45)
[2019-11-11] MEDS: Aspirin 325 mg Enteric Coated Tablet PO SCH (09:09)
[2019-11-11] MEDS: Gabapentin 300 MG CAP PO SCH ×3 (09:09→20:45)
[2019-11-11] MEDS: Fludrocortisone Acetate 0.1 MG TAB PO SCH (09:09)
[2019-11-11] MEDS: Acetaminophen 325 MG TAB PO PRN ×2 (13:06→17:50)
--- NOTE | 2019-11-11 13:32 | CON ---
DATE OF CONSULTATION: 11/11/2019 HISTORY OF PRESENT ILLNESS: This is a 54-year-old male with past medical history significant for hypertension; tobacco abuse; multidrug abuse; CVA x3; MD x2, status post PCI with stents; and diabetes, who presents for a syncopal episode. The patient reports he was stooling yesterday morning and got up from the toilet, felt lightheaded, passed out, and woke up on the floor. Subsequently, he had left head and left lateral chest pain from where he hit the wooden floor. He denies any previous chest pain or diaphoresis. He reports he has had multiple episodes of getting lightheaded after standing from a seated position as well as passing out twice a week from this. He has a history of orthostatic hypotension. His PCP recently started him on midodrine 1 week ago due to the frequency of these episodes. The patient went to be seen by his primary care doctor yesterday, and then EMS was called. His blood pressure was 60s/40s, and he was diaphoretic. When he presented to the ED, his troponin was elevated at 0.054 and downtrended to 0.035, then to 0.025. His EKG showed an old right bundle-branch block. The patient reports that he last used methamphetamine 2 days ago. ALLERGIES: NO KNOWN DRUG ALLERGIES. MEDICATIONS: 1. Albuterol sulfate 2 puffs inhaled q.6 hours p.r.n. 2. Insulin detemir (Levemir) 27 units subcutaneously at bedtime. 3. Aspirin 81 mg p.o. daily. 4. Midodrine 2.5 mg p.o. t.i.d. 5. Gabapentin 300 mg p.o. t.i.d. 6. Atorvastatin 80 mg p.o. at bedtime. PAST MEDICAL HISTORY: Recent left frontal stroke; history of CVA x3; hypertension; history of MD x2 and 2 PCIs with 2 stents placed per the patient; COPD; orthostatic hypotension; depression; diabetes mellitus, type 2; Buerger disease; tobacco abuse; and multidrug abuse. 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 SOCIAL HISTORY: The patient smokes 5 to 6 cigarettes per day. Denies alcohol use. The patient last used marijuana a few months ago. He reports he uses meth about every few months and last used it 2 days ago. FAMILY HISTORY: The patient reports cardiomyopathy in his father. REVIEW OF SYSTEMS: CONSTITUTIONAL: The patient denies fevers, chills, or headaches. HEENT: Denies vision or hearing changes, eye pain, or ear pain. Denies rhinorrhea. Reports congestion. Reports cough. CARDIAC: The patient reports chest pain after fall, but not prior. Denies palpitations. RESPIRATORY: The patient denies shortness of breath. Reports cough. GI/: The patient denies nausea or vomiting. Reports constipation and 2 episodes of loose stools today. Denies hematuria, dysuria, or hematochezia. NEUROLOGIC: The patient reports some subsequent left-sided weakness after his stroke. Denies new numbness, weakness, or tingling. EXTREMITIES: The patient denies rashes or lesions. MUSCULOSKELETAL: The patient reports left chest pain. Denies back pain. Reports fall. PHYSICAL EXAMINATION: VITAL SIGNS: Temperature 98.3, pulse 90, respirations 14, O2 saturation 95% on room air. Blood pressure 103/66, 70/48, 123/76, 118/74. GENERAL: Very thin male, lying in bed, alert and interactive with good eye contact. EYES, EARS, NOSE, AND THROAT: Eyes; PERRLA. Extraocular motions are intact. Mouth; no teeth present. No pharyngeal injection or exudate. NECK: Trachea is midline. No lymphadenopathy. Supple. CARDIAC: Regular rate and rhythm. No murmurs, rubs, or gallops. Carotid murmur heard bilaterally over carotids. LUNGS: Bilaterally clear to auscultation, although breath sounds are somewhat diminished at the bases. ABDOMEN: Soft and nontender. Positive bowel sounds. CHEST: There is tenderness over the left side. No bruising or hematomas visualized. EXTREMITIES: Pulses are 2+ in upper extremities and 1+ in lower extremities. NEUROLOGIC: Strength is 5/5 in both upper and lower extremities. SKIN: No rashes or lesions identified. LABORATORY DATA: White blood cells 4.8, hemoglobin 12.1, platelets 147. Sodium 137, potassium 3.7, chloride 102, carbon dioxide 29, BUN 17, creatinine 0.74, GFR greater than 90, glucose 273, calcium 8.4. AST 19, ALT 15, alkaline phosphatase 85. CK-MB 2.5. Troponins were elevated initially to 0.054 in the indeterminate range and improved to 0.035, then to 0.025. Cortisol level drawn at 1627 hours was 9.4, within the normal range. Urine drug screen was positive for amphetamines and methamphetamines. IMAGING STUDIES: Brain CT, impression: No acute intracranial abnormalities. Chest x-ray, impression: Chronic-appearing lung changes. Some residual right- sided effusion noted. Chest CTA: Peribronchial thickening of the right lower lobe, likely related to inflammatory process. Stable minimal pericardial effusion. No CT evidence of pulmonary embolus. ASSESSMENT AND PLAN: 1. Syncope. This is likely related to his orthostatic hypotension. Recommend repeating an echocardiogram to visualize ejection fraction as well as for cardiac valves to be evaluated. Consider a CTA neck to evaluate for carotid artery stenosis. Pt was placed on midodrine and florinef. Recommend rechecking orthostatics. 2. Left-sided chest pain. This appears to be musculoskeletal after the patient hit the ground. However, the patient does have significant history of percutaneous coronary intervention with stenting. Troponins were downtrending. This is likely related to his syncopal episode. The patient continues on aspirin and atorvastatin 80 mg daily. 3. Diabetes mellitus. Continue home medications. Case discussed with Dr. Phillips. Job ID: [id number] [facility]
--- NOTE | 2019-11-11 14:15 | CON ---
DATE OF CONSULTATION: REASON FOR CONSULTATION: Syncope. PRIMARY RN ADVANCED: Dr. Phoenix De La Torre. HISTORY OF PRESENT ILLNESS: Mr. Canela is a 54-year-old gentleman, who has extensive cardiac history. He recently had a syncopal event. He was previously on midodrine for orthostatic hypotension. He states he stood and passed out. This has occurred at [facility]. His blood pressure was 60/40. EMS was called. He was given IV fluids with some improvement. Please see Saira Cornelius's full consultation for details. PHYSICAL EXAMINATION: GENERAL: Patient is a pleasant gentleman, who is in no acute distress. He does appear older than stated age. VITAL SIGNS: Blood pressure 167/88, blood pressure supine 147/78, standing was , pulse 87, temperature 97.1. NEUROLOGIC: The patient is alert and oriented x3 with no focal neurologic deficits. HEENT: Sclerae without icterus. Mouth has moist mucous membranes with normal pallor. NECK: No JVD. Carotid upstroke brisk. No bruits bilaterally. LUNGS: Clear to auscultation with unlabored respirations. BACK: No scoliosis or kyphosis. CARDIAC: Regular rate and rhythm with normal S1 and S2. No S3 or S4 noted. No significant rubs, murmurs, thrills, or gallops noted throughout the precordium. PMI is not displaced. There is no parasternal heave. ABDOMEN: Soft, nontender, nondistended. No peritoneal signs present. No hepatosplenomegaly. No abnormal striae. EXTREMITIES: 2+ femoral and 2+ dorsalis pedis pulses. No cyanosis, clubbing, or edema. SKIN: No gross abnormalities. PERTINENT LABORATORY DATA: Hemoglobin 12.1, hematocrit 35.9. Creatinine 0.74. Troponin 0.025. IMPRESSION: 1. Orthostatic hypotension. 2. Syncope. 3. Coronary artery disease. RECOMMENDATIONS: The patient appears to have been treated for orthostatic hypotension in the past. This persists. At this point, he was placed on Florinef in addition to midodrine. Blood pressures slowly came up. May need to perform orthostatics once again. Certainly, difficult situation to prevent syncope. Unfortunately, his supine blood pressure may need to run high to prevent further acute episodes of syncope. He is not on diuretic therapy at home. Other etiologies would include volume depletion in addition to medications, aging, and neurodegenerative disease. He is 54 years old and unlikely related to aging. Further recommendation per Dr. Phoenix De La Torre. Job ID: [id number]
[2019-11-11] MEDS: Nicotine 14 MG PATCH TD SCH (14:59)
--- NOTE | 2019-11-11 16:25 | PDOC.HOSPP ---
- Subjective Encounter Date: 11/11/19 Encounter Time: 16:23 Subjective: Patient seen and examined for syncope with collapse and elevated troponin. Reports feeling better. Reports light headed with standing this morning. Denies any CP, heart palps, SOB. No new complaints. No overnight events. - Objective Vital Signs & Weight: Vital Signs (12 hours) Temp Pulse Resp BP BP BP BP 11/11/19 15:18 97.8 F 85 12 93/58 L 90/52 L 145/76 H 11/11/19 12:26 98.1 F 87 16 167/88 H 11/11/19 09:15 118/74 11/11/19 09:10 123/76 11/11/19 09:05 70/48 L Pulse Ox 11/11/19 15:18 97 11/11/19 12:26 96 11/11/19 09:15 11/11/19 09:10 11/11/19 09:05 Weight Weight 163 lb 1.6 oz Result Diagrams: 11/11/19 04:37 11/11/19 04:37 Additional Labs: Accuchecks 11/11/19 11/10/19 10:36 20:29 POC Glucose 237 H 147 H Laboratory Tests 11/10/19 11/10/19 16:27 23:15 Cortisol 9.40 Ur Amphetamines Screen Detected H U Methamphetamines Scrn Detected H Radiology Reviewed by me: Yes (CTA neck 08/10, no significant carotid stenosis) EKG Reviewed by me: Yes (NSR, RBB) Hospitalist ROS - Review of Systems Constitutional: denies: fever, chills, sweats, weakness, malaise, other Cardiovascular: reports: light headedness (with standing), other (Pleuritic chest pain). denies: palpitations, edema Gastrointestinal: denies: nausea, vomiting, abdominal pain, diarrhea, constipation, melena, hematochezia, other Neurological: denies: weakness, numbness, incoordination, change in speech, confusion, seizures, other - Medication Medications: Active Medications Generic Name Dose Route Start Last Admin Trade Name Freq PRN Reason Stop Dose Admin Acetaminophen 650 mg 11/10/19 15:38 11/11/19 13:06 Tylenol PO 650 mg Q4H PRN Administration Headache/Fever/Mild Pain (1-3) Aspirin 325 mg 11/11/19 09:00 11/11/19 09:09 Ecotrin PO 325 mg DAILY SAMMIE Administration Atorvastatin Calcium 80 mg 11/10/19 21:00 11/10/19 21:03 Lipitor PO 80 mg HS SAMMIE Administration Fludrocortisone Acetate 0.2 mg 11/11/19 09:00 11/11/19 09:09 Florinef PO 0.2 mg DAILY [facility]MIE Administration Gabapentin 300 mg 11/10/19 21:00 11/11/19 14:58 Neurontin PO 300 mg TID SAMMIE Administration Insulin Human Lispro 0 units 11/10/19 15:41 11/11/19 13:06 Humalog SC 4 unit .MILD SLIDING SCALE PRN Administration Mild Correctional Scale Midodrine 2.5 mg 11/10/19 21:00 11/11/19 14:58 Proamatine PO 2.5 mg TID SAMMIE Administration Nicotine 14 mg 11/10/19 16:00 11/11/19 14:59 Nicoderm Patch TD 14 mg Q24HR SAMMIE Administration Tramadol HCl 50 mg 11/10/19 21:09 11/11/19 13:05 Ultram PO 50 mg Q4H PRN Administration Moderate Pain (4-6) - Exam General Appearance: NAD, awake alert Heart: RRR, no murmur, no gallops, no rubs, normal peripheral pulses Respiratory: CTAB, no wheezes, no rales, no ronchi Gastrointestinal: soft, non-tender, non-distended, no guarding, no rigidity Extremities: no edema Psychiatric: normal affect, A&O x 3 Hosp A/P - Plan Impression: Syncope with collapse (POA) Orthostatic hypotension Elevated troponin, trended down Chest pain, pleuritic in nature CAD w/ stents h/o CVA COPD, chronic Tobacco abuse Methamphetamine abuse Depression Plan: Awaiting echo results Appreciate cardiology recommendation Continue Fludrocortisone and Midodrine Reviewd CTA neck 08/10, no significant carotid stenosis Tobacco cessation Continue other medications
[2019-11-11] MEDS: Atorvastatin Calcium 40 MG TAB PO SCH (20:44)
[2019-11-12 04:54] LABS: #Eosinphils 0.2 thou/uL (0.0-0.7); #Lymphocytes 1.9 thou/uL (1.20-3.40); #Monocytes 0.6 thou/uL (0.11-0.59); #Neutrophils 2.7 thou/uL (1.40-6.50); %Basophils 0.3 % (0.0-1.0); %Eosinophils 3.2 % (0.0-10.0); %Lymphocytes 35.5 % (21.0-51.0); %Monocytes 10.4 % (0.0-10.0); %Neutrophils 50.6 % (42.0-75.0); Hemoglobin 11.9 g/dL (14.0-18.0); Mean Corpuscular HGB CONC 33.9 g/dL (32.0-36.0); Mean Corpuscular Hemoglobin 31.3 pg (27.0-31.0); Mean Corpuscular Volume 92.2 fL (78.0-98.0); Mean Platelet Volume 8.6 fL (7.4-10.4); Platelet Count 131 thou/uL (130-400); RBC Distribution Width 12.1 % (11.5-14.5); Red Blood Cell (RBC) Count 3.81 mill/uL (4.70-6.10); White Blood Cell (WBC) Count 5.3 thou/uL (4.8-10.8)
[2019-11-12] MEDS: traMADol HCl 50 MG TAB PO PRN ×3 (06:04→20:43)
[2019-11-12 06:17] LABS: Chloride 104 mmol/L (98-107); Potassium 3.7 mmol/L (3.5-5.1); Sodium 138 mmol/L (136-145)
[2019-11-12 06:18] LABS: Calcium 8.6 mg/dL (7.8-10.44); Glucose 326 mg/dL (70-105)
[2019-11-12 06:20] LABS: Anion Gap 8 mmol/L (10-20); Carbon Dioxide 30 mmol/L (22-29)
[2019-11-12 06:22] LABS: Calc. Creatinine Clearance 132 mL/min (70-130); Estimated GFR-MDRD Greater than 90
[2019-11-12 06:23] LABS: BUN (Urea Nitrogen) 15 mg/dL (8.4-25.7)
[2019-11-12] MEDS: HumaLOG 300 UNITS/3 ML VIAL SC PRN ×3 (06:41→17:17)
[2019-11-12] MEDS: Gabapentin 300 MG CAP PO SCH ×3 (08:50→20:32)
[2019-11-12] MEDS: Midodrine HCl 5 MG TAB PO SCH ×3 (08:50→20:38)
[2019-11-12] MEDS: Fludrocortisone Acetate 0.1 MG TAB PO SCH (08:50)
[2019-11-12] MEDS: Aspirin 325 mg Enteric Coated Tablet PO SCH (08:50)
[2019-11-12] MEDS ORDERED: Insulin Glargine 10 UNITS in Pre-Filled Syringe 1 EACH SC SCH (11:15)
[2019-11-12] MEDS: Acetaminophen 325 MG TAB PO PRN ×2 (12:29→20:44)
--- NOTE | 2019-11-12 15:26 | PDOC.CPN ---
- Subjective Date: 11/12/19 Time: 15:26 Interval history: He is not orthostatic but he still feels lightheaded when standing up. - Review of Systems General: denies: fever/chills, weight/appetite/sleep changes, night sweats, fatigue Respiratory: denies: cough, congestion, shortness of breath, exercise intolerance Cardiovascular: denies: chest pain, palpitation, edema, paroxysmal nocturnal dyspnea, orthopnea Gastrointestinal: denies: nausea, vomiting, diarrhea, constipation, abd pain, GI bleeding Musculoskeletal: denies: pain, tenderness, stiffness, swelling, arthritis/ arthralgias Neurological: denies: numbness, syncope, seizure, weakness - Objective Allergies/Adverse Reactions: Allergies Allergy/AdvReac Type Severity Reaction Status Date / Time No Known Drug Allergies Allergy Severe Verified 11/10/19 20:48 APPLE BLOSSOMS Allergy Severe Uncoded 02/24/18 08:40 Visit Medications: Current Medications Acetaminophen (Tylenol) 650 mg PO Q4H PRN PRN Reason: Headache/Fever/Mild Pain (1-3) Last Admin: 11/12/19 12:29 Dose: 650 mg Aspirin (Ecotrin) 325 mg PO DAILY [facility] Last Admin: 11/12/19 08:50 Dose: 325 mg Atorvastatin Calcium (Lipitor) 80 mg PO HS [facility] Last Admin: 11/11/19 20:44 Dose: 80 mg Dextrose/Water (Dextrose 50%) 25 gm SLOW IVP PRN PRN PRN Reason: Hypoglycemia Fludrocortisone Acetate (Florinef) 0.2 mg PO DAILY [facility] Last Admin: 11/12/19 08:50 Dose: 0.2 mg Gabapentin (Neurontin) 300 mg PO TID [facility] Last Admin: 11/12/19 08:50 Dose: 300 mg Glucagon (Glucagon) 1 mg IM PRN PRN PRN Reason: Hypoglycemia Dextrose/Water (D5w) 1,000 mls @ 0 mls/hr IV .Q0M PRN PRN Reason: Hypoglycemia Insulin Glargine 10 units/ (Miscellaneous Medication) 0.1 mls @ 0 mls/hr SC BID [facility] Insulin Human Lispro (Humalog) 0 units SC .MILD SLIDING SCALE PRN PRN Reason: Mild Correctional Scale Last Admin: 11/12/19 12:35 Dose: 4 unit Insulin Human Lispro (Humalog) 0 units SC .BEDTIME SLIDING SC PRN PRN Reason: Bedtime Correctional Scale Midodrine (Proamatine) 2.5 mg PO TID [facility] Last Admin: 11/12/19 08:50 Dose: 2.5 mg Nicotine (Nicoderm Patch) 14 mg TD Q24HR [facility] Last Admin: 11/11/19 14:59 Dose: 14 mg Ondansetron HCl (Zofran) 4 mg IVP Q6H PRN PRN Reason: Nausea/Vomiting Tramadol HCl (Ultram) 50 mg PO Q4H PRN PRN Reason: Moderate Pain (4-6) Last Admin: 11/12/19 12:30 Dose: 50 mg Vital Signs & Weight: Vital Signs Temp Pulse Pulse Pulse Pulse Pulse Pulse 11/12/19 11:27 83 85 81 80 80 11/12/19 11:18 98.6 F 87 11/12/19 07:07 97.5 F L 85 11/12/19 05:15 82 11/12/19 04:06 98.3 F 89 Resp BP BP BP BP BP BP 11/12/19 11:27 113/62 92/56 L 94/53 L 96/54 L 128/79 11/12/19 11:18 20 11/12/19 07:07 15 11/12/19 05:15 11/12/19 04:06 15 164/87 H BP BP BP BP Pulse Ox 11/12/19 11:27 11/12/19 11:18 118/70 96 11/12/19 07:07 112/65 95 11/12/19 05:15 118/65 82/50 L 141/80 H 11/12/19 04:06 95 Weight 162 lb 4.8 oz - Physical Exam General: alert & oriented x3 HEENT: mucus membranes moist Neck: supple neck Cardiac: regular rate and rhythm Lungs: clear to auscultation Neuro: cranial nerve 2-12 intact, grossly intact Abdomen: active bowel sounds Extremities: no edema Skin: clear Musculoskeletal: no pain - Labs Result Diagrams: 11/12/19 04:25 11/12/19 05:46 Troponin/CKMB CK-MB (CK-2) 2.5 ng/mL (0-6.6) 11/10/19 12:26 Troponin I 0.025 ng/mL (< 0.028) 11/10/19 20:26 - Telemetry Sinus rhythms and dysrhythmias: sinus rhythm - Assessment/Plan Assessment/Plan: 1. Orthostatic hypotension PLAN: - Continue midodrine and florinef. - CV stable - Home any time from cardiac perspective. 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
[2019-11-12] MEDS: Nicotine 14 MG PATCH TD SCH (16:18)
[2019-11-12] MEDS: Insulin Glargine 10 UNITS in Pre-Filled Syringe 1 EACH SC SCH (20:32)
[2019-11-12] MEDS: Atorvastatin Calcium 40 MG TAB PO SCH (20:32)
--- NOTE | 2019-11-12 20:33 | PDOC.HOSPP ---
- Subjective Encounter Date: 11/12/19 Encounter Time: 12:00 Subjective: Patient seen and examined for syncope. Feels lightheaded and dizzy on standing. No CP. No overnight events - Objective Vital Signs & Weight: Vital Signs (12 hours) Temp Pulse Pulse Pulse Pulse Pulse Pulse 11/12/19 19:35 98.4 F 81 11/12/19 15:28 98.2 F 78 11/12/19 11:27 83 85 81 80 80 11/12/19 11:18 98.6 F 87 Resp BP BP BP BP BP BP 11/12/19 19:35 16 11/12/19 15:28 16 11/12/19 11:27 113/62 92/56 L 94/53 L 96/54 L 128/79 11/12/19 11:18 20 118/70 BP BP BP Pulse Ox 11/12/19 19:35 87/56 L 94/54 L 127/72 95 11/12/19 15:28 115/68 95 11/12/19 11:27 11/12/19 11:18 96 Weight Weight 162 lb 4.8 oz I&O: 11/11/19 11/12/19 11/13/19 06:59 06:59 06:59 Intake Total 720 Output Total 100 Balance 620 Result Diagrams: 11/12/19 04:25 11/12/19 05:46 Additional Labs: Accuchecks 11/12/19 11/12/19 11/12/19 20:13 16:18 10:32 POC Glucose 202 H 219 H 261 H 11/12/19 11/11/19 06:43 20:48 POC Glucose 405 H 175 H Selected Entries 11/12/19 05:15 Blood Pressure 118/65 [Sitting] Blood Pressure 141/80 H [Supine] Selected Entries 11/12/19 05:15 Blood Pressure 82/50 L [Standing] EKG Reviewed by me: Yes (Tele SR) Hospitalist ROS - Review of Systems Respiratory: denies: cough, dry, shortness of breath, hemoptysis, SOB with excertion, pleuritic pain, sputum, wheezing, other Cardiovascular: denies: chest pain, palpitations, orthopnea, paroxysmal noc. dyspnea, edema, light headedness, other - Medication Medications: Active Medications Generic Name Dose Route Start Last Admin Trade Name Freq PRN Reason Stop Dose Admin Acetaminophen 650 mg 11/10/19 15:38 11/12/19 12:29 Tylenol PO 650 mg Q4H PRN Administration Headache/Fever/Mild Pain (1-3) Aspirin 325 mg 11/11/19 09:00 11/12/19 08:50 Ecotrin PO 325 mg DAILY SAMMIE Administration Atorvastatin Calcium 80 mg 11/10/19 21:00 11/11/19 20:44 Lipitor PO 80 mg HS SAMMIE Administration Fludrocortisone Acetate 0.2 mg 11/11/19 09:00 11/12/19 08:50 Florinef PO 0.2 mg DAILY SAMMIE Administration Gabapentin 300 mg 11/10/19 21:00 11/12/19 16:17 Neurontin PO 300 mg TID [facility] Administration Insulin Human Lispro 0 units 11/10/19 15:41 11/12/19 17:17 Humalog SC 3 unit .MILD SLIDING SCALE PRN Administration Mild Correctional Scale Midodrine 2.5 mg 11/10/19 21:00 11/12/19 16:17 Proamatine PO 2.5 mg TID [facility] Administration Nicotine 14 mg 11/10/19 16:00 11/12/19 16:18 Nicoderm Patch TD Not Given Q24HR [facility] Tramadol HCl 50 mg 11/10/19 21:09 11/12/19 12:30 Ultram PO 50 mg Q4H PRN Administration Moderate Pain (4-6) - Exam General Appearance: NAD Neck: supple, no JVD Heart: RRR, no gallops Respiratory: no wheezes, no rales, no ronchi Gastrointestinal: non-tender, non-distended, normal bowel sounds Extremities: no edema Hosp A/P - Plan DVT proph w/SCDs Syncope due to Orthostatic hypotension Type 2 MS - POA Chest pain, pleuritic in nature CAD w/ stents h/o CVA COPD, chronic Tobacco abuse h/o Methamphetamine abuse Depression - mild stable Plan: Echo reviewed Still Orthostatic while on Midodrone and Florinef Await Cardio input Tobacco cessation Continue other medications
[2019-11-13] MEDS: HumaLOG 300 UNITS/3 ML VIAL SC PRN ×2 (05:55→13:29)
[2019-11-13] MEDS: traMADol HCl 50 MG TAB PO PRN ×2 (08:04→13:28)
[2019-11-13] MEDS: Acetaminophen 325 MG TAB PO PRN ×2 (08:05→13:29)
[2019-11-13] MEDS: Gabapentin 300 MG CAP PO SCH ×2 (08:09→16:33)
[2019-11-13] MEDS: Aspirin 325 mg Enteric Coated Tablet PO SCH (08:09)
[2019-11-13] MEDS: Insulin Glargine 10 UNITS in Pre-Filled Syringe 1 EACH SC SCH (08:10)
[2019-11-13] MEDS: Midodrine HCl 5 MG TAB PO SCH ×2 (08:10→16:32)
[2019-11-13] MEDS: Fludrocortisone Acetate 0.1 MG TAB PO SCH (08:10)
--- NOTE | 2019-11-13 14:39 | PDOC.HOSPP ---
- Subjective Encounter Date: 11/13/19 Encounter Time: 14:38 Subjective: Mr. Canela was seen today in follow-up of severe orthostatic hypotension. He does not have any complaints. - Objective Vital Signs & Weight: Vital Signs (12 hours) Temp Pulse Resp BP BP BP BP 11/13/19 11:22 98.3 F 76 16 147/81 H 11/13/19 10:18 117/66 135/79 11/13/19 07:07 98.2 F 84 18 89/53 L 11/13/19 03:10 97.8 F 88 18 93/67 BP BP Pulse Ox 11/13/19 11:22 96 11/13/19 10:18 11/13/19 07:07 67/46 L 122/68 96 11/13/19 03:10 95 Weight Weight 162 lb 4.8 oz I&O: 11/12/19 11/13/19 11/14/19 06:59 06:59 06:59 Intake Total 720 Output Total 100 Balance 620 Result Diagrams: 11/12/19 04:25 11/12/19 05:46 Additional Labs: Accuchecks 11/13/19 11/13/19 11/12/19 10:41 05:29 20:13 POC Glucose 280 H 299 H 202 H 11/12/19 16:18 POC Glucose 219 H Hospitalist ROS - Medication Medications: Active Medications Generic Name Dose Route Start Last Admin Trade Name Freq PRN Reason Stop Dose Admin Acetaminophen 650 mg 11/10/19 15:38 11/13/19 13:29 Tylenol PO 650 mg Q4H PRN Administration Headache/Fever/Mild Pain (1-3) Aspirin 325 mg 11/11/19 09:00 11/13/19 08:09 Ecotrin PO 325 mg DAILY [facility]MIE Administration Atorvastatin Calcium 80 mg 11/10/19 21:00 11/12/19 20:32 Lipitor PO 80 mg HS SAMMIE Administration Fludrocortisone Acetate 0.2 mg 11/11/19 09:00 11/13/19 08:10 Florinef PO 0.2 mg DAILY SAMMIE Administration Gabapentin 300 mg 11/10/19 21:00 11/13/19 08:09 Neurontin PO 300 mg TID [facility]MIE Administration Insulin Glargine 10 units/ 0.1 mls @ 0 mls/hr 11/12/19 21:00 11/13/19 08:10 Miscellaneous Medication SC 0.1 mls BID [facility]MIE Administration Insulin Human Lispro 0 units 11/10/19 15:41 11/13/19 13:29 Humalog SC 4 unit .MILD SLIDING SCALE PRN Administration Mild Correctional Scale Insulin Human Lispro 0 units 11/11/19 03:59 11/12/19 20:32 Humalog SC 2 unit .BEDTIME SLIDING SC PRN Administration Bedtime Correctional Scale Midodrine 2.5 mg 11/10/19 21:00 11/13/19 08:10 Proamatine PO 2.5 mg TID SAMMIE Administration Nicotine 14 mg 11/10/19 16:00 11/12/19 16:18 Nicoderm Patch TD Not Given Q24HR [facility]E Tramadol HCl 50 mg 11/10/19 21:09 11/13/19 13:28 Ultram PO 50 mg Q4H PRN Administration Moderate Pain (4-6) - Exam Eye: PERRL Heart: RRR, no murmur, no gallops, no rubs, normal peripheral pulses Respiratory: CTAB, no wheezes, no rales, no ronchi Gastrointestinal: soft, non-tender, non-distended, normal bowel sounds, no palpable masses, no hepatomegaly Extremities: no cyanosis Hosp A/P (1) Orthostatic hypotension Code(s): I95.1 - ORTHOSTATIC HYPOTENSION Status: Acute (2) COPD (chronic obstructive pulmonary disease) Status: Chronic Qualifiers: COPD type: unspecified COPD Qualified Code(s): J44.9 - Chronic obstructive pulmonary disease, unspecified (3) CVA (cerebral vascular accident) Code(s): I63.9 - CEREBRAL INFARCTION, UNSPECIFIED Status: Chronic Qualifiers: CVA mechanism: unspecified Qualified Code(s): I63.9 - Cerebral infarction, unspecified (4) DM type 2 (diabetes mellitus, type 2) Status: Chronic Qualifiers: Diabetes mellitus intermediate teacher insulin use: with intermediate teacher use Diabetes mellitus complication status: with hyperglycemia Qualified Code(s): E11.65 - Type 2 diabetes mellitus with hyperglycemia; Z79.4 - halfway (current) use of insulin (5) Hypertension Code(s): I10 - ESSENTIAL (PRIMARY) HYPERTENSION Status: Chronic - Plan * Orthostatic hypotension- very difficult to manage * Will continue conservative measures, and Midodrine and Florinef * Stable for discharge home.
[2019-11-13 16:07] VITALS: BP 138/80; TEMP 97.6
[2019-11-13] MEDS: Nicotine 14 MG PATCH TD SCH (16:07)
--- NOTE | 2019-11-15 16:07 | DIS ---
DATE OF ADMISSION: 11/10/2019 DATE OF DISCHARGE: 11/13/2019 DISCHARGE DISPOSITION: Home. DISCHARGE DIAGNOSES: 1. Syncope. 2. Severe orthostatic hypotension. 3. History of cerebrovascular accident. 4. Hypertension. 5. Chronic obstructive pulmonary disease. DISCHARGE MEDICATIONS: 1. Please note that Florinef 0.2 mg was added to his regimen. 2. Continue midodrine 2.5 mg p.o. t.i.d. 3. Atorvastatin 80 mg at bedtime. 4. Levemir insulin 27 units at bedtime. 5. Gabapentin 300 mg t.i.d. 6. Aspirin 81 mg daily. 7. ProAir inhaler HFA two puffs q.4 as needed. IMAGING: During his hospital stay, the patient had a CT angiogram of the chest showing peribronchial thickening of the right lower lobes. There was some reticular nodular densities in the lobe suggesting infectious process. Resolution of the left pleural effusion. No pulmonary embolism. The patient had a CT scan of the brain, showing no acute intracranial abnormalities. The patient had an echocardiogram, the EF of which was estimated at 45% to 50%. There was hypokinetic motion in the lateral wall of the left ventricle and some E/A flow reversal, suggestive of diastolic dysfunction. CODE STATUS: Full code. ALLERGIES: TO APPLE BLOSSOM. HOSPITAL COURSE: Mr. Canela is a pleasant 54-year-old gentleman, who presented to the hospital after suffering a syncopal episode at home. He was brought into observation and had a CT angiograms to rule out PE. This was negative. Echocardiogram did not demonstrate any significant changes. He was found to be severely orthostatic with pressures dropping from 122/68 down as low as 67/46 when he stood up. He was given IV fluids to help with hydration. He was also started on Florinef in addition to the midodrine. He was evaluated by his inspector outside production, and unfortunately besides adding the Florinef and recommending him to stay hydrated as well as other conservative measures, this was about all the interventions that can be done at this time. He was also instructed on possibly wearing compression hose up above the thighs and even an abdominal binder type device to help. The patient is being discharged home and will need close outpatient followup with his primary care physician in 1 week. Job ID: [id number]
== END 2019-11-13 16:39 | disposition home or self-care (01) ==
LOC: ERS 11:56 → ERHOLD 14:34 → 2SW 20:06
PROVIDERS: ADMIT Internal Medicine; ATTEND Internal Medicine
DX: I95.1 Orthostatic hypotension (principal); I10 Essential (primary) hypertension; J44.9 Chronic obstructive pulmonary disease, unspecified; I21.A1 Myocardial infarction type 2; R07.81 Pleurodynia; I25.10 Atherosclerotic heart disease of native coronary artery without angina pectoris; F17.210 Nicotine dependence, cigarettes, uncomplicated; F32.9 Major depressive disorder, single episode, unspecified; E11.9 Type 2 diabetes mellitus without complications; I73.1 Thromboangiitis obliterans [Buerger's disease]; F12.11 Cannabis abuse, in remission; F15.11 Other stimulant abuse, in remission; Z86.73 Personal history of transient ischemic attack (TIA), and cerebral infarction without residual deficits; Z79.4 Long term (current) use of insulin; Z79.82 Long term (current) use of aspirin; Z79.899 Other long term (current) drug therapy; Z91.018 Allergy to other foods; Z95.5 Presence of coronary angioplasty implant and graft; Z89.021 Acquired absence of right finger(s)
CPT/HCPCS: 36415; 36416; 70450; 71046; 71275; 80048; 80053; 80306; 82533; 82553; 84484; 85025; 93005; 93306; 94760; 96360; G0378; J1815; Q9967

== ENCOUNTER 2020-01-12 08:40 | Emergency (ER) | payer OTHER ==
[2020-01-12 09:18] LABS: #Eosinphils 0.1 thou/uL (0.0-0.7); #Lymphocytes 1.4 thou/uL (1.20-3.40); #Monocytes 0.4 thou/uL (0.11-0.59); #Neutrophils 2.5 thou/uL (1.40-6.50); %Basophils 0.7 % (0.0-1.0); %Lymphocytes 32.3 % (21.0-51.0); %Monocytes 7.9 % (0.0-10.0); %Neutrophils 57.2 % (42.0-75.0); Hemoglobin 12.6 g/dL (14.0-18.0); Mean Corpuscular HGB CONC 32.2 g/dL (32.0-36.0); Mean Corpuscular Hemoglobin 30.1 pg (27.0-31.0); Mean Corpuscular Volume 93.6 fL (78.0-98.0); Mean Platelet Volume 7.7 fL (7.4-10.4); Platelet Count 152 thou/uL (130-400); RBC Distribution Width 12.3 % (11.5-14.5); Red Blood Cell (RBC) Count 4.19 mill/uL (4.70-6.10); White Blood Cell (WBC) Count 4.4 thou/uL (4.8-10.8)
[2020-01-12 09:37] LABS: ALT (SGPT) 13 U/L (8-55); AST (SGOT) 14 U/L (5-34); Albumin 3.4 g/dL (3.5-5.0); Alkaline Phosphatase 82 U/L (40-110); Anion Gap 12 mmol/L (10-20); BUN (Urea Nitrogen) 14 mg/dL (8.4-25.7); Bilirubin, Total 0.3 mg/dL (0.2-1.2); CK (CPK) 49 U/L (30-200); Calc. Creatinine Clearance 0 mL/min (70-130); Calcium 8.7 mg/dL (7.8-10.44); Carbon Dioxide 29 mmol/L (22-29); Chloride 102 mmol/L (98-107); Estimated GFR-MDRD Greater than 90; Globulin 2.9 g/dL (2.4-3.5); Lipase 14 U/L (8-78); Protein, Total 6.3 g/dL (6.0-8.3); Sodium 140 mmol/L (136-145)
[2020-01-12 09:42] LABS: Glucose 34 mg/dL (70-105)
[2020-01-12] MEDS ORDERED: Dextrose 50% Abboject 50 ML SYRINGE ONE (09:45)
--- NOTE | 2020-01-12 09:47 | RAD ---
PORTABLE CHEST: Date: 01/12/2020 HISTORY: Syncope. Hypertension. COMPARISON: 11/10/2019. FINDINGS: Heart size is borderline for portable technique. The lungs appear clear of any infiltrates. Blunting to the right costophrenic angle is similar to the previous exam and appears chronic. IMPRESSION: No active intrathoracic disease. POS: C
--- NOTE | 2020-01-14 15:35 | EKG ---
Test Reason : Blood Pressure : / mmHG Vent. Rate : 071 BPM Atrial Rate : 071 BPM P-R Int : 194 ms QRS Dur : 146 ms QT Int : 456 ms P-R-T Axes : 078 104 077 degrees QTc Int : 495 ms Sinus rhythm with Premature supraventricular complexes Right bundle branch block Abnormal ECG No changes from [id number]-2005 Confirmed by DEBYB ANNE, RAQUEL ([id number]), science editor MONTY MEDLEY ([id number]) on 01/14/2020 3:35:12 PM Referred By: Confirmed By:RAQUEL GUARDADO MD
== END 2020-01-12 11:05 | disposition home or self-care (01) ==
LOC: ERS 08:40
DX: E11.649 Type 2 diabetes mellitus with hypoglycemia without coma (principal); E87.6 Hypokalemia; R19.7 Diarrhea, unspecified; I10 Essential (primary) hypertension; I25.2 Old myocardial infarction; J44.9 Chronic obstructive pulmonary disease, unspecified; F32.9 Major depressive disorder, single episode, unspecified; F17.210 Nicotine dependence, cigarettes, uncomplicated; Z79.899 Other long term (current) drug therapy; Z79.82 Long term (current) use of aspirin; Z79.4 Long term (current) use of insulin; Z86.73 Personal history of transient ischemic attack (TIA), and cerebral infarction without residual deficits
CPT/HCPCS: 36415; 36416; 71045; 80053; 82550; 83690; 83880; 84484; 85025; 93005; 96374

== ENCOUNTER 2020-03-18 16:44 | Emergency (ER) | payer OTHER ==
[2020-03-18 17:23] LABS: #Eosinphils 0.1 thou/uL (0.0-0.7); #Lymphocytes 1.4 thou/uL (1.20-3.40); #Monocytes 0.4 thou/uL (0.11-0.59); #Neutrophils 2.7 thou/uL (1.40-6.50); %Basophils 0.4 % (0.0-1.0); %Eosinophils 1.1 % (0.0-10.0); %Lymphocytes 31.1 % (21.0-51.0); %Monocytes 9.1 % (0.0-10.0); %Neutrophils 58.3 % (42.0-75.0); Hemoglobin 13.9 g/dL (14.0-18.0); Mean Corpuscular HGB CONC 33.1 g/dL (32.0-36.0); Mean Corpuscular Hemoglobin 30.3 pg (27.0-31.0); Mean Corpuscular Volume 91.7 fL (78.0-98.0); Platelet Count 151 thou/uL (130-400); RBC Distribution Width 12.9 % (11.5-14.5); Red Blood Cell (RBC) Count 4.59 mill/uL (4.70-6.10); White Blood Cell (WBC) Count 4.6 thou/uL (4.8-10.8)
[2020-03-18 17:39] LABS: ALT (SGPT) 10 U/L (8-55); AST (SGOT) 10 U/L (5-34); Albumin 3.4 g/dL (3.5-5.0); Alcohol Less than 10 mg/dL (Less than 10); Alkaline Phosphatase 73 U/L (40-110); Anion Gap 11 mmol/L (10-20); BUN (Urea Nitrogen) 11 mg/dL (8.4-25.7); Bilirubin, Total 0.5 mg/dL (0.2-1.2); Calc. Creatinine Clearance 0 mL/min (70-130); Calcium 8.5 mg/dL (7.8-10.44); Carbon Dioxide 28 mmol/L (22-29); Chloride 104 mmol/L (98-107); Estimated GFR-MDRD Greater than 90; Globulin 2.8 g/dL (2.4-3.5); Glucose 61 mg/dL (70-105); Potassium 3.3 mmol/L (3.5-5.1); Protein, Total 6.2 g/dL (6.0-8.3); Sodium 140 mmol/L (136-145)
== END 2020-03-18 19:57 | disposition home or self-care (01) ==
LOC: ERS 16:44
DX: E11.649 Type 2 diabetes mellitus with hypoglycemia without coma (principal); I10 Essential (primary) hypertension; I25.2 Old myocardial infarction; J44.9 Chronic obstructive pulmonary disease, unspecified; F32.9 Major depressive disorder, single episode, unspecified; F17.210 Nicotine dependence, cigarettes, uncomplicated; Z79.4 Long term (current) use of insulin; Z79.899 Other long term (current) drug therapy; Z86.73 Personal history of transient ischemic attack (TIA), and cerebral infarction without residual deficits
CPT/HCPCS: 36415; 36416; 80053; 80307; 85025; 99285

== ENCOUNTER 2020-08-04 12:14 | Inpatient (IN) | payer OTHER ==
[2020-08-04 13:33] LABS: #Basophils 0.1 thou/uL (0.0-0.2); #Eosinphils 0.1 thou/uL (0.0-0.7); #Lymphocytes 1.7 thou/uL (1.20-3.40); #Monocytes 0.6 thou/uL (0.11-0.59); #Neutrophils 4.3 thou/uL (1.40-6.50); %Eosinophils 1.2 % (0.0-10.0); %Lymphocytes 24.8 % (21.0-51.0); %Monocytes 8.9 % (0.0-10.0); %Neutrophils 64.1 % (42.0-75.0); Hemoglobin 14.8 g/dL (14.0-18.0); Mean Corpuscular HGB CONC 32.3 g/dL (32.0-36.0); Mean Corpuscular Hemoglobin 30.3 pg (27.0-31.0); Mean Corpuscular Volume 93.7 fL (78.0-98.0); Platelet Count 147 thou/uL (130-400); RBC Distribution Width 12.1 % (11.5-14.5); White Blood Cell (WBC) Count 6.8 thou/uL (4.8-10.8)
[2020-08-04] MEDS ORDERED: Acetaminophen 500 MG TAB ONE (13:39)
[2020-08-04] MEDS ORDERED: Morphine 4 MG/ML VIAL ONE (13:39)
[2020-08-04] MEDS ORDERED: Ondansetron PF 4 MG/2 ML Vial ONE (13:39)
--- NOTE | 2020-08-04 13:39 | RAD ---
Exam: Chest one view HISTORY:Orthostatic hypotension. Comparison: 01/12/2020 FINDINGS: Cardiac silhouette: Normal Aorta: Atherosclerosis Pulmonary vessels: Normal Costophrenic angles: Clear LUNGS: No masses or consolidation. Chronic lung changes. Hyperinflation. Pneumothorax: None Osseous abnormalities: Multiple old right rib fractures are redemonstrated. IMPRESSION: 1. Hyperinflation. COPD. 2. Atherosclerosis.
[2020-08-04 14:34] LABS: Albumin 2.5 g/dL (3.5-5.0)
[2020-08-04 14:35] LABS: Chloride 94 mmol/L (98-107)
[2020-08-04 14:36] LABS: Glucose 403 mg/dL (70-105)
[2020-08-04 14:37] LABS: Globulin 2.5 g/dL (2.4-3.5)
[2020-08-04 14:38] LABS: Bilirubin, Total 0.4 mg/dL (0.2-1.2); Carbon Dioxide 24 mmol/L (22-29)
[2020-08-04 14:39] LABS: Alkaline Phosphatase 62 U/L (40-110); Calc. Creatinine Clearance 0 mL/min (70-130); Estimated GFR-MDRD Greater than 90
[2020-08-04 14:40] LABS: BUN (Urea Nitrogen) 8 mg/dL (8.4-25.7)
[2020-08-04 14:41] LABS: AST (SGOT) 9 U/L (5-34)
[2020-08-04 14:42] LABS: ALT (SGPT) Less than 7 U/L (8-55)
[2020-08-04 14:43] LABS: Lipase Less than 4 U/L (8-78)
--- NOTE | 2020-08-04 15:13 | CT ---
CT Abdomen Pelvis W Con History: Abdominal pain Comparison: None. Findings: Small chronic right layering pleural effusion with pleural calcifications. No significant p ericardial fluid. Small foci of vascular shunting along the subcapsular area of bright liver hepatic segment 6. Spleen is unremarkable aside from a few calcified granulomas. Adrenal glands are normal. No hydrouret eronephrosis. Wedge shaped area of for parenchymal enhancement inferior cortex right kidney. Celiac trunk and superior mesenteric arteries are patent. Moderate atherosclerotic plaque of the aort a. Moderate wall thickening circumferentially of the rectum. No dilated loops of large or small bowel. Mild superficial and deep third spacing of fluid. The appendix is visualized and normal. No retroperitoneal periaortic adenopathy. High-grade narrowing of the right and left femoral arteries due to calcific and soft plaque. Impression: 1. Wedge-shaped hypodensity inferior pole right kidney can be seen with pyelonephritis. Urinalysis co rrelation recommended. 2. Normal appendix. 3. Superficial and deep third spacing of fluid is seen with cardiac and or hepatic dysfunction. 3. Small right pleural effusion as well as pleural thickening and calcifications similar to the 2019 CT chest exam.
[2020-08-04] MEDS ORDERED: Iopamidol-370 76% 500 ML 1 ML ONE (15:21)
[2020-08-04 15:58] LABS: Bacteria/HPF None Seen HPF (None Seen); Bilirubin Negative (Negative); Blood, Urine Negative (Negative); Clarity Clear (Clear); Glucose, Urine (Dipstick) Greater than 1000 mg/dL (Negative); Ketone, Urine Negative (Negative); Leukocyte Negative Leu/uL (Negative); Nitrite Negative (Negative); Protein, Urine (Dipstick) 70 mg/dL (Neg-Trace); RBC/HPF 0-3 HPF (0-3); Squamous Epithelial 0-3 HPF (0-3); Urobilinogen Normal mg/dL (Less than 2); pH, Urine 6.5 (5.0-9.0)
[2020-08-04 16:00] LABS: Specific Gravity, Urine 1.048 (1.002-1.036)
[2020-08-04 16:27] LABS: Sodium 139 mmol/L (136-145)
[2020-08-04 16:28] LABS: Calcium 8.4 mg/dL (7.8-10.44)
[2020-08-04 16:30] LABS: Anion Gap 11 mmol/L (10-20)
[2020-08-04 16:43] LABS: Potassium 2.8 mmol/L (3.5-5.1)
[2020-08-04] MEDS ORDERED: Potassium Chloride 20 MEQ TAB ONE (16:52)
--- NOTE | 2020-08-04 20:40 | PDOC.HHP ---
Hospitalist HPI - History of Present Illness Abdominal pain History of Present Illness: This is a 55-year-old male patient with a history of diabetes mellitus type 2, UT, COPD, abdominal aortic aneurysm orthostatic hypotension for which she is on fludrocortisone and midodrine, and collapsed right lower lung who presents today complaining of abdominal pain. He was in his usual state of health when he started feeling the pain in his upper abdomen. This became progressively worse. He had no associated fevers chills or shortness of breath. EMS was activated and was brought in for further evaluation. On arrival his vitals were within normal limits and he was in no acute distress. CT scan of his abdomen revealed no acute process. CBC was generally unremarkable BMP showed severe hypokalemia of 2.8, glucose 403, BNP was elevated at 272.5, troponin 0 0.013 and lipase was less than 4. Urinalysis showed glucosuria however no WBCs Chest x-ray revealed hyperinflated lungs consistent with COPD. He was given 60 mEq potassium chloride, ondansetron morphine and 500 mils normal saline. Hospitalist ROS - Review of Systems Constitutional: denies: fever, chills, sweats Cardiovascular: denies: chest pain, palpitations, orthopnea, paroxysmal noc. dyspnea Gastrointestinal: reports: abdominal pain. denies: nausea, vomiting, diarrhea, constipation Genitourinary: denies: dysuria, frequency, incontinence, hematuria Neurological: denies: weakness, numbness, incoordination, change in speech Hospitalist History - Past Medical History Endocrine: reports: Diabetes Other Medical History: hypertension, diabetes mellitus type 2, UT, COPD, abdominal aortic aneurysm orthostatic hypotension - Past Surgical History Other Surgical History: Right second and third digit amputation, left heart catheterization and stent placement - Family History Family History: reports: no pertinent history - Social History Smoking Status: Current every day smoker Alcohol: reports: None Drugs: reports: methamphetamine (quit 2 months ago) Living Situation: With Family - Exam General Appearance: awake alert ENT: normocephalic atraumatic, moist mucosa Heart: RRR, no murmur, no gallops, normal peripheral pulses Respiratory: no wheezes, no rales Respiratory - other findings: Reduced air entry bilaterally. Gastrointestinal: soft, non-distended, tender to palpation (Mild) Extremities: no cyanosis, no clubbing, no edema Neurological: cranial nerve grossly intact, no weakness Psychiatric: normal affect, normal behavior, A&O x 3 Hospitalist Results - Labs Result Diagrams: 08/04/20 13:09 08/04/20 13:09 Lab results: WBC 6.8 thou/uL (4.8-10.8) 08/04/20 13:09 Hgb 14.8 g/dL (14.0-18.0) 08/04/20 13:09 Hct 45.9 % (42.0-52.0) 08/04/20 13:09 MCV 93.7 fL (78.0-98.0) 08/04/20 13:09 Plt Count 147 thou/uL (130-400) 08/04/20 13:09 Neutrophils % 64.1 % (42.0-75.0) 08/04/20 13:09 Sodium 139 mmol/L (136-145) 08/04/20 13:09 Potassium 2.8 mmol/L (3.5-5.1) L* 08/04/20 13:09 Chloride 94 mmol/L (98-107) L 08/04/20 13:09 Carbon Dioxide 24 mmol/L (22-29) 08/04/20 13:09 BUN 8 mg/dL (8.4-25.7) L 08/04/20 13:09 Creatinine 0.62 mg/dL (0.7-1.3) L 08/04/20 13:09 Glucose 403 mg/dL (70-105) H 08/04/20 13:09 Lactic Acid 1.6 mmol/L (0.5-2.2) 08/04/20 13:22 Calcium 8.4 mg/dL (7.8-10.44) 08/04/20 13:09 Total Bilirubin 0.4 mg/dL (0.2-1.2) 08/04/20 13:09 AST 9 U/L (5-34) 08/04/20 13:09 ALT Less than 7 U/L (8-55) L 08/04/20 13:09 Alkaline Phosphatase 62 U/L (40-110) 08/04/20 13:09 Troponin I 0.013 ng/mL (< 0.028) 08/04/20 13:35 B-Natriuretic Peptide 272.5 pg/mL (0-100) H 08/04/20 13:35 Serum Total Protein 5.0 g/dL (6.0-8.3) L 08/04/20 13:09 Albumin 2.5 g/dL (3.5-5.0) L 08/04/20 13:09 Lipase Less than 4 U/L (8-78) L 08/04/20 13:09 Urine Ketones Negative mg/dL (Negative) 08/04/20 15:35 Urine Blood Negative (Negative) 08/04/20 15:35 Urine Nitrite Negative (Negative) 08/04/20 15:35 Ur Leukocyte Esterase Negative Sapna/uL (Negative) 08/04/20 15:35 Urine RBC 0-3 HPF (0-3) 08/04/20 15:35 Urine WBC 4-6 HPF (0-3) A 08/04/20 15:35 Ur Squamous Epith Cells 0-3 HPF (0-3) 08/04/20 15:35 Urine Bacteria None Seen HPF (None Seen) 08/04/20 15:35 Hospitalist H&P A/P - Plan Plan: This is a 55-year-old male patient with a history of orthostatic hypotension, diabetes mellitus among several others who presents with severe abdominal pain with severe hypokalemia on evaluation. His symptoms are however disappeared while in the ED. We will admit to telemetry and monitor overnight with correction of his electrolyte imbalance. Abdominal pain Explanation for his pain which resolved with morphine in the ED Possibility of DKA however bicarb is normal with no anion gap. Glucose is elevated however. We will monitor him a little further. Severe hypokalemia Potassium 2.8 at presentation with EKG changes. Replace potassium Check TSH, magnesium Check urine potassium Electrolytes monitoring. Hyperglycemia Not indicated the moment Start insulin with high correctional dosing NovoLog Monitor glucose. Orthostatic hypotension Continue midodrine and fludrocortisone *CODE STATUSfull code VTE prophylaxislow
[2020-08-04] MEDS ORDERED: Dextrose 50% Abboject 50 ML SYRINGE SLOW IVP PRN (20:53)
[2020-08-04] MEDS ORDERED: Dextrose 5% in Water 1,000 ML IV PRN ×2 (20:53→21:34)
[2020-08-04] MEDS ORDERED: Sodium Chloride 0.9% 1,000 ML IV SCH (21:00)
[2020-08-04 21:40] LABS: Anion Gap 14 mmol/L (10-20); BUN (Urea Nitrogen) 14 mg/dL (8.4-25.7); Calc. Creatinine Clearance 0 mL/min (70-130); Calcium 7.9 mg/dL (7.8-10.44); Carbon Dioxide 29 mmol/L (22-29); Chloride 94 mmol/L (98-107); Estimated GFR-MDRD 75; Glucose 546 mg/dL (70-105); Magnesium 1.2 mg/dL (1.6-2.6); Potassium 3.4 mmol/L (3.5-5.1); Sodium 134 mmol/L (136-145)
[2020-08-04] MEDS: Morphine 2 MG/ML VIAL SLOW IVP PRN (21:45)
[2020-08-04] MEDS: Insulin Glargine 20 UNITS in Pre-Filled Syringe 1 EACH SC SCH (22:18)
[2020-08-04] MEDS: Insulin Regular 300 UNITS/3 ML VIAL SC PRN (22:20)
[2020-08-04 22:52] VITALS: BMI 22.8
--- NOTE | 2020-08-05 00:03 | PDOC.FMACP ---
Advance Care Planning - Note Summary: Advanced Care Planning was discussed. The diagnosis, prognosis and goals of care were discussed. Patient is full code. Surrogate decision-maker is her daughter. 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
[2020-08-05] MEDS ORDERED: Magnesium Sulfate 4 GM in Sodium Chloride 0.9% 250 ML 250 ML IVPB SCH (00:30)
[2020-08-05] MEDS: Morphine 2 MG/ML VIAL SLOW IVP PRN ×4 (03:47→22:43)
[2020-08-05] MEDS: HumaLOG 300 UNITS/3 ML VIAL SC PRN ×2 (06:05→18:34)
[2020-08-05 16:43] LABS: Troponin I 0.019 ng/mL (< 0.028)
--- NOTE | 2020-08-05 17:52 | PDOC.HOSPP ---
- Subjective Encounter Date: 08/05/20 Encounter Time: 17:50 Subjective: Patient seen for follow-up regarding chest pain. He reports that he started having chest pain since this morning. Reports that abdominal pain is better. He is unable to describe the chest pain but reports that it is bilateral. - Objective Vital Signs & Weight: Vital Signs (12 hours) Temp Pulse Resp BP Pulse Ox 08/05/20 16:40 98.2 F 72 16 163/90 H 98 08/05/20 12:30 98.1 F 71 16 160/90 H 100 08/05/20 08:04 98.5 F 77 16 145/81 H 99 Weight Weight 183 lb 1.6 oz I&O: 08/04/20 08/05/20 08/06/20 06:59 06:59 06:59 Intake Total 1980 Output Total 575 Balance 1405 Result Diagrams: 08/04/20 13:09 08/04/20 21:13 Additional Labs: Accuchecks 08/05/20 08/05/20 08/04/20 10:49 05:45 21:11 POC Glucose 143 H 216 H 440 H I reviewed patient's labs and MAR EKG Reviewed by me: Yes (Normal sinus rhythm on telemetry) Hospitalist ROS - Review of Systems Cardiovascular: reports: chest pain. denies: palpitations, orthopnea, paroxysmal noc. dyspnea, edema, light headedness Gastrointestinal: reports: abdominal pain. denies: nausea, vomiting, diarrhea, constipation, melena, hematochezia - Medication Medications: Active Medications Generic Name Dose Route Start Last Admin Trade Name Freq PRN Reason Stop Dose Admin Insulin Glargine 20 units/ 0.2 mls @ 0 mls/hr 08/04/20 21:00 08/04/20 22:18 Miscellaneous Medication SC 0.2 mls HS SAMMIE Administration Insulin Human Lispro 0 units 08/04/20 20:53 08/05/20 06:05 Humalog 300 Units/3 Ml Vial SC 4 unit .MODERATE SLIDING SC PRN Administration Moderate Correctional Scale Insulin Human Regular 0 units 08/04/20 21:34 08/04/20 22:20 Insulin Regular 300 Units/3 Ml Vial SC 5 unit .BEDTIME SLIDING SC PRN Administration Bedtime Correctional Scale Morphine Sulfate 2 mg 08/04/20 21:06 08/05/20 10:04 Morphine 2 Mg/Ml Vial SLOW IVP 2 mg Q4H PRN Administration Moderate Pain (4-6) Sodium Chloride 10 ml 08/05/20 09:00 08/05/20 09:46 Flush - Normal Saline 10 Ml Syringe IVF 10 ml Q12HR SAMMIE Administration - Exam General Appearance: awake alert Eye: anicteric sclera ENT: moist mucosa Neck: supple Heart: RRR Respiratory: CTAB Gastrointestinal: soft, non-tender Skin: no rashes Musculoskeletal: no muscle wasting Psychiatric: normal affect, normal behavior Hosp A/P (1) Chest pain Code(s): R07.9 - CHEST PAIN, UNSPECIFIED Status: Acute (2) Abdominal pain Code(s): R10.9 - UNSPECIFIED ABDOMINAL PAIN Status: Acute (3) CAD (coronary artery disease) Code(s): I25.10 - ATHSCL HEART DISEASE OF [place] CORONARY ARTERY W/O ANG PCTRS Status: Chronic Qualifiers: Coronary Disease-Associated Artery/Lesion type: [place] artery [place] vs. 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 Patient is tolerating diet. Given patient's risk factors, check stress test. Also check D-dimer to rule out pulmonary embolism. Continue Accu-Cheks and insulin sliding scale. Monitor vital signs and titrate antihypertensives as needed. Replace magnesium.
[2020-08-05] MEDS ORDERED: Magnesium 2 GM/50 ML 2 GM in Premix Bag 1 BAG IVPB SCH (18:00)
[2020-08-05] MEDS ORDERED: Pharmacy to Dose VANCOMYCIN/RENALLY ADJ ANTIBIOTICS IVPB PRN (18:15)
--- NOTE | 2020-08-05 18:22 | PDOC.HOSPP ---
- Subjective Encounter Date: 08/05/20 Encounter Time: 18:21 Subjective: Patient seen for follow-up regarding chest pain. Reports abdominal pain has improved. - Objective Vital Signs & Weight: Vital Signs (12 hours) Temp Pulse Resp BP Pulse Ox 08/05/20 16:40 98.2 F 72 16 163/90 H 98 08/05/20 12:30 98.1 F 71 16 160/90 H 100 08/05/20 08:04 98.5 F 77 16 145/81 H 99 Weight Weight 183 lb 1.6 oz I&O: 08/04/20 08/05/20 08/06/20 06:59 06:59 06:59 Intake Total 1980 Output Total 575 Balance 1405 Result Diagrams: 08/04/20 13:09 08/04/20 21:13 Additional Labs: Accuchecks 08/05/20 08/05/20 08/05/20 17:58 10:49 05:45 POC Glucose 223 H 143 H 216 H 08/04/20 21:11 POC Glucose 440 H I reviewed patient's labs and MAR EKG Reviewed by me: Yes (Normal sinus rhythm on telemetry) Hospitalist ROS - Review of Systems Cardiovascular: reports: chest pain. denies: palpitations, orthopnea, paroxysmal noc. dyspnea, edema, light headedness Gastrointestinal: reports: abdominal pain. denies: nausea, vomiting, diarrhea, constipation, melena, hematochezia - Medication Medications: Active Medications Generic Name Dose Route Start Last Admin Trade Name Freq PRN Reason Stop Dose Admin Insulin Glargine 20 units/ 0.2 mls @ 0 mls/hr 08/04/20 21:00 08/04/20 22:18 Miscellaneous Medication SC 0.2 mls HS SAMMIE Administration Insulin Human Lispro 0 units 08/04/20 20:53 08/05/20 06:05 Humalog 300 Units/3 Ml Vial SC 4 unit .MODERATE SLIDING SC PRN Administration Moderate Correctional Scale Insulin Human Regular 0 units 08/04/20 21:34 08/04/20 22:20 Insulin Regular 300 Units/3 Ml Vial SC 5 unit .BEDTIME SLIDING SC PRN Administration Bedtime Correctional Scale Morphine Sulfate 2 mg 08/04/20 21:06 08/05/20 10:04 Morphine 2 Mg/Ml Vial SLOW IVP 2 mg Q4H PRN Administration Moderate Pain (4-6) Sodium Chloride 10 ml 08/05/20 09:00 08/05/20 09:46 Flush - Normal Saline 10 Ml Syringe IVF 10 ml Q12HR SAMMIE Administration - Exam General Appearance: awake alert Eye: anicteric sclera ENT: moist mucosa Neck: supple Heart: RRR Respiratory: CTAB Gastrointestinal: soft, non-tender Skin: no rashes Psychiatric: normal affect, normal behavior Hosp A/P (1) Chest pain Code(s): R07.9 - CHEST PAIN, UNSPECIFIED Status: Acute (2) Abdominal pain Code(s): R10.9 - UNSPECIFIED ABDOMINAL PAIN Status: Acute (3) CAD (coronary artery disease) Code(s): I25.10 - ATHSCL HEART DISEASE OF [place] CORONARY ARTERY W/O ANG PCTRS Status: Chronic Qualifiers: Coronary Disease-Associated Artery/Lesion type: [place] artery [place] vs. 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 Patient is tolerating diet. Given patient's risk factors, check stress test. Also check D-dimer to rule out pulmonary embolism. Continue Accu-Cheks and insulin sliding scale. Monitor vital signs and titrate antihypertensives as needed. Replace magnesium.
[2020-08-05] MEDS ORDERED: FLU VACC QS2020-21(6MOS UP)/PF 60 MCG/0.5 ML SYRINGE IM ONE (21:00)
[2020-08-05] MEDS: Vancomycin 1.5 GRAM/300 ML BAG 1 GM in Premix Bag 1 BAG IVPB SCH (21:22)
[2020-08-05] MEDS: Insulin Glargine 20 UNITS in Pre-Filled Syringe 1 EACH SC SCH (21:27)
[2020-08-05] MEDS: Insulin Regular 300 UNITS/3 ML VIAL SC PRN (22:36)
[2020-08-06] MEDS: Morphine 2 MG/ML VIAL SLOW IVP PRN ×4 (03:50→21:39)
[2020-08-06 04:25] LABS: #Basophils 0.1 thou/uL (0.0-0.2); #Eosinphils 0.3 thou/uL (0.0-0.7); #Lymphocytes 1.8 thou/uL (1.20-3.40); #Monocytes 0.6 thou/uL (0.11-0.59); #Neutrophils 4.2 thou/uL (1.40-6.50); %Basophils 1.3 % (0.0-1.0); %Eosinophils 3.7 % (0.0-10.0); %Lymphocytes 25.9 % (21.0-51.0); %Monocytes 8.3 % (0.0-10.0); %Neutrophils 60.8 % (42.0-75.0); Hemoglobin 13.2 g/dL (14.0-18.0); Mean Corpuscular HGB CONC 32.5 g/dL (32.0-36.0); Mean Corpuscular Hemoglobin 30.6 pg (27.0-31.0); Mean Platelet Volume 8.4 fL (7.4-10.4); Platelet Count 127 thou/uL (130-400); RBC Distribution Width 12.1 % (11.5-14.5); Red Blood Cell (RBC) Count 4.32 mill/uL (4.70-6.10); White Blood Cell (WBC) Count 6.9 thou/uL (4.8-10.8)
[2020-08-06 04:51] LABS: Anion Gap 8 mmol/L (10-20); BUN (Urea Nitrogen) 12 mg/dL (8.4-25.7); Calc. Creatinine Clearance 154 mL/min (70-130); Calcium 8.5 mg/dL (7.8-10.44); Carbon Dioxide 35 mmol/L (22-29); Chloride 100 mmol/L (98-107); Estimated GFR-MDRD Greater than 90; Glucose 90 mg/dL (70-105); Magnesium 1.9 mg/dL (1.6-2.6); Potassium 3.3 mmol/L (3.5-5.1); Sodium 140 mmol/L (136-145)
[2020-08-06] MEDS: Enoxaparin Sodium 40 MG/0.4 ML SYRINGE SC SCH (08:07)
[2020-08-06] MEDS: Vancomycin 1.5 GRAM/300 ML BAG 1 GM in Premix Bag 1 BAG IVPB SCH (08:07)
--- NOTE | 2020-08-06 14:18 | PDOC.HOSPP ---
- Subjective Encounter Date: 08/06/20 Encounter Time: 09:30 Subjective: Patient seen for follow-up regarding chest pain. He denies any cough, fevers or chills. He denies any nausea or vomiting. - Objective Vital Signs & Weight: Vital Signs (12 hours) Temp Pulse Resp BP BP Pulse Ox 08/06/20 11:01 98.6 F 75 14 162/87 H 96 08/06/20 07:36 98.3 F 72 20 172/87 H 98 08/06/20 04:00 97.5 F L 71 18 149/83 H 96 Weight Weight 188 lb 14.4 oz I&O: 08/05/20 08/06/20 08/07/20 06:59 06:59 06:59 Intake Total 1980 Output Total 575 Balance 1405 Result Diagrams: 08/06/20 04:16 08/06/20 04:16 Additional Labs: Accuchecks 08/06/20 08/06/20 08/05/20 10:45 05:38 19:26 POC Glucose 91 90 237 H 08/05/20 17:58 POC Glucose 223 H Labs and MAR reviewed by me EKG Reviewed by me: Yes (Telemetry shows normal sinus rhythm) Hospitalist ROS - Review of Systems Cardiovascular: reports: chest pain. denies: palpitations, orthopnea, paroxysmal noc. dyspnea, edema, light headedness Gastrointestinal: denies: nausea, vomiting, abdominal pain, diarrhea, melena, hematochezia - Medication Medications: Active Medications Generic Name Dose Route Start Last Admin Trade Name Freq PRN Reason Stop Dose Admin Enoxaparin Sodium 40 mg 08/06/20 09:00 08/06/20 08:07 Enoxaparin Sodium 40 Mg/0.4 Ml Syringe SC 40 mg 0900 SAMMIE Administration Insulin Glargine 20 units/ 0.2 mls @ 0 mls/hr 08/04/20 21:00 08/05/20 21:27 Miscellaneous Medication SC 0.2 mls HS SAMMIE Administration Insulin Human Lispro 0 units 08/04/20 20:53 08/05/20 18:34 Humalog 300 Units/3 Ml Vial SC 4 unit .MODERATE SLIDING SC PRN Administration Moderate Correctional Scale Insulin Human Regular 0 units 08/04/20 21:34 08/05/20 22:36 Insulin Regular 300 Units/3 Ml Vial SC 2 unit .BEDTIME SLIDING SC PRN Administration Bedtime Correctional Scale Morphine Sulfate 2 mg 08/04/20 21:06 08/06/20 08:08 Morphine 2 Mg/Ml Vial SLOW IVP 2 mg Q4H PRN Administration Moderate Pain (4-6) Sodium Chloride 10 ml 08/05/20 09:00 08/06/20 08:08 Flush - Normal Saline 10 Ml Syringe IVF 10 ml Q12HR SAMMIE Administration - Exam General Appearance: awake alert Eye: anicteric sclera ENT: moist mucosa Neck: supple Heart: RRR Respiratory: CTAB, no wheezes Gastrointestinal: soft, non-tender, non-distended, normal bowel sounds Skin: no rashes Psychiatric: normal affect, normal behavior Hosp A/P (1) Chest pain Code(s): R07.9 - CHEST PAIN, UNSPECIFIED Status: Acute (2) CAD (coronary artery disease) Code(s): I25.10 - ATHSCL HEART DISEASE OF [place] CORONARY ARTERY W/O ANG PCTRS Status: Chronic Qualifiers: Coronary Disease-Associated Artery/Lesion type: [place] artery [place] vs. transplanted heart: [place] heart Associated angina: angina presence unspecified Qualified Code(s): I25.10 - Atherosclerotic heart disease of [place] coronary artery without angina pectoris (3) COPD (chronic obstructive pulmonary disease) Status: Chronic Qualifiers: COPD type: unspecified COPD Qualified Code(s): J44.9 - Chronic obstructive pulmonary disease, unspecified (4) DM type 2 (diabetes mellitus, type 2) Status: Chronic Qualifiers: Diabetes mellitus jail insulin use: with jail use Diabetes mellitus complication status: with hyperglycemia Qualified Code(s): E11.65 - Type 2 diabetes mellitus with hyperglycemia; Z79.4 - MCFP (current) use of insulin (5) HTN (hypertension) Code(s): I10 - ESSENTIAL (PRIMARY) HYPERTENSION Status: Chronic Qualifiers: Hypertension type: essential hypertension Qualified Code(s): I10 - Essential (primary) hypertension (6) Abdominal pain Code(s): R10.9 - UNSPECIFIED ABDOMINAL PAIN Status: Resolved - Plan Patient is awaiting stress test. D-dimer ordered. Blood sugars reasonably controlled today. Replace potassium. Blood pressures have improved. Hypomagnesemia has resolved.
[2020-08-06] MEDS: Insulin Regular 300 UNITS/3 ML VIAL SC PRN (21:40)
[2020-08-06] MEDS: Insulin Glargine 20 UNITS in Pre-Filled Syringe 1 EACH SC SCH (21:40)
[2020-08-07] MEDS: Morphine 2 MG/ML VIAL SLOW IVP PRN ×5 (04:29→20:29)
[2020-08-07] MEDS: Dextrose 50% Abboject 50 ML SYRINGE SLOW IVP PRN (05:52)
--- NOTE | 2020-08-07 11:36 | NM ---
EXAM: Nuclear medicine cardiac perfusion examination with ejection fraction HISTORY: Chest pain TECHNIQUE: Rest images: 10.1 mCi technetium 99m sestamibi Stress images: 29.9 mCi of technetium 99m sestamibi; Lexiscan COMPARISON: None FINDINGS: Tomographic images: There is a fixed perfusion defect at the apex. Along the posterior wall, there is a fixed perfusion defect. However, there appears to be some reversibility of a medium-sized, moderate intensity perfusion defect. Gated images: Normal wall motion and ejection fraction of 38%. EDV: 153 mL LHR: 0.3 TID: 1.1 IMPRESSION:. 1. Likely ischemia along the posterior/inferior wall. This appears to be in the location where a prio r fixed defect was present and there is likely ischemia in the same vascular territory as a prior infarction 2. Hypokinesis
[2020-08-07] MEDS: Dextrose 5 % And 0.9 % NaCl 1,000 ML IV SCH (12:15)
[2020-08-07] MEDS ORDERED: Regadenoson 0.4 MG/5 ML SYRINGE ONE (15:03)
[2020-08-07] MEDS: Enoxaparin Sodium 40 MG/0.4 ML SYRINGE SC SCH (16:46)
[2020-08-07] MEDS: HumaLOG 300 UNITS/3 ML VIAL SC PRN (16:55)
--- NOTE | 2020-08-07 17:58 | PDOC.HOSPP ---
- Subjective Encounter Date: 08/07/20 Encounter Time: 11:30 Subjective: Patient seen for follow-up regarding chest pain. He reports chest pain is better. He denies fevers or chills. He denies nausea or vomiting. - Objective Vital Signs & Weight: Vital Signs (12 hours) Temp Pulse Resp BP BP Pulse Ox 08/07/20 16:30 97.8 F 76 18 144/86 H 99 08/07/20 12:07 97.7 F 76 18 148/71 H 99 08/07/20 07:52 97.5 F L 72 18 116/66 164/86 H 98 Weight Weight 181 lb 6.4 oz I&O: 08/06/20 08/07/20 08/08/20 06:59 06:59 06:59 Intake Total 1380 950 Output Total 1000 420 Balance 380 530 Result Diagrams: 08/06/20 04:16 08/06/20 04:16 Additional Labs: Accuchecks 08/07/20 08/07/20 08/07/20 16:43 12:30 06:30 POC Glucose 270 H 169 H 119 H 08/07/20 08/06/20 05:46 21:02 POC Glucose 54 L* 202 H I reviewed patient's labs and MAR EKG Reviewed by me: Yes (Telemetry shows normal sinus rhythm) Hospitalist ROS - Review of Systems Cardiovascular: reports: chest pain. denies: palpitations, orthopnea, paroxysmal noc. dyspnea, edema, light headedness Gastrointestinal: denies: nausea, vomiting, abdominal pain, diarrhea, constipation, melena, hematochezia - Medication Medications: Active Medications Generic Name Dose Route Start Last Admin Trade Name Jayden PRN Reason Stop Dose Admin Dextrose/Water 25 gm 08/04/20 21:34 08/07/20 05:52 Dextrose 50% Abboject 50 Ml Syringe SLOW IVP 25 gm PRN PRN Administration Hypoglycemia Enoxaparin Sodium 40 mg 08/06/20 09:00 08/07/20 16:46 Enoxaparin Sodium 40 Mg/0.4 Ml Syringe SC 40 mg 0900 SAMMIE Administration Insulin Glargine 20 units/ 0.2 mls @ 0 mls/hr 08/04/20 21:00 08/06/20 21:40 Miscellaneous Medication SC 0.2 mls HS SAMMIE Administration Dextrose/Sodium Chloride 1,000 mls @ 50 mls/hr 08/07/20 09:45 08/07/20 12:15 D5 0.9% Ns IV 1,000 mls .Q20H SAMMIE Administration Insulin Human Lispro 0 units 08/04/20 20:53 08/07/20 16:55 Humalog 300 Units/3 Ml Vial SC 6 unit .MODERATE SLIDING SC PRN Administration Moderate Correctional Scale Insulin Human Regular 0 units 08/04/20 21:34 08/06/20 21:40 Insulin Regular 300 Units/3 Ml Vial SC 2 unit .BEDTIME SLIDING SC PRN Administration Bedtime Correctional Scale Morphine Sulfate 2 mg 08/04/20 21:06 08/07/20 16:46 Morphine 2 Mg/Ml Vial SLOW IVP 2 mg Q4H PRN Administration Moderate Pain (4-6) Sodium Chloride 10 ml 08/05/20 09:00 08/07/20 08:45 Flush - Normal Saline 10 Ml Syringe IVF 10 ml Q12HR SAMMIE Administration - Exam General Appearance: awake alert Eye: anicteric sclera ENT: moist mucosa Neck: supple Heart: RRR Respiratory: CTAB Gastrointestinal: soft, non-tender Skin: no rashes Psychiatric: normal affect, normal behavior Hosp A/P (1) Chest pain Code(s): R07.9 - CHEST PAIN, UNSPECIFIED Status: Acute (2) CAD (coronary artery disease) Code(s): I25.10 - ATHSCL HEART DISEASE OF [place] CORONARY ARTERY W/O ANG PCTRS Status: Chronic Qualifiers: Coronary Disease-Associated Artery/Lesion type: [place] artery [place] vs. 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 helper termite insulin use: with exterminator helper termite use Diabetes mellitus complication status: with hyperglycemia Qualified Code(s): E11.65 - Type 2 diabetes mellitus with hyperglycemia; Z79.4 - termite exterminator helper (current) use of insulin (5) HTN (hypertension) Code(s): I10 - ESSENTIAL (PRIMARY) HYPERTENSION Status: Chronic Qualifiers: Hypertension type: essential hypertension Qualified Code(s): I10 - Essential (primary) hypertension (6) Abdominal pain Code(s): R10.9 - UNSPECIFIED ABDOMINAL PAIN Status: Resolved - Plan Patient had an abnormal stress test, consult cardiology for opinion and help with management. Blood sugars reasonably controlled. Hypertension stable.
[2020-08-07] MEDS: Insulin Glargine 20 UNITS in Pre-Filled Syringe 1 EACH SC SCH (20:28)
[2020-08-07] MEDS ORDERED: HumaLOG 300 UNITS/3 ML VIAL SC PRN (20:43)
--- NOTE | 2020-08-07 23:07 | CON ---
DATE OF CONSULTATION: HISTORY: Timothy Canela is a 55-year-old white male, patient of Dr. Soy Costello. He was first seen on in 2014. He had chest pain and underwent stent placement in mid circumflex by Dr. Jaquez. This was a Rebel 2.75 x 32 mm stent. He then presented again in February 2018 with a myocardial infarction. He had total occlusion of the circumflex and total occlusion of the right coronary artery with moderate disease in the LAD. He underwent stent placement in the right coronary artery by Dr. Phillips since this appeared to be the acute vessel. There appeared to be diffuse disease in the right coronary artery once it was opened and it was felt best not to proceed with any further intervention. In February 2019, he underwent Cardiolite scan which revealed inferior scar, but no evidence of ischemia. He was admitted in July 2019 with lacunar stroke and CT angiogram of the carotids did not show any significant stenosis. He was again admitted July 2019 with chest discomfort. He did have an abnormal troponin I but it was felt to be a laboratory error. He now is admitted with bilateral abdominal pain. He was admitted on August 04 and he states that this abdominal pain has been constant since that time. He denies any significant chest discomfort like he had with his prior myocardial infarctions. He underwent Cardiolite testing, which revealed ischemia along the posterior inferior wall, where there had been prior fixed defect in this area. Troponin I's have been totally normal despite continual abdominal discomfort for 3 days. PAST MEDICAL HISTORY: Hypercholesterolemia, history of stroke, myocardial infarction, noncompliance, diabetes, right-sided pneumothorax. MEDICATIONS: At home include; 1. Florinef 0.1. 2. Gabapentin 300 t.i.d. 3. Insulin. 4. Midodrine 2.5 t.i.d. ALLERGIES: APPLE BLOSSOMS. 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 SOCIAL HISTORY: He continues to smoke one-half pack per day. Methamphetamine abuse in the past. REVIEW OF SYSTEMS: Otherwise unremarkable. PHYSICAL EXAMINATION: VITAL SIGNS: Blood pressure 144/86, pulse 76. HEENT: PERRL. NECK: Supple. Carotid upstrokes normal without bruits. CHEST: Clear. CARDIAC: S1 and S2 normal without any S3, S4, or murmurs. ABDOMEN: Normal bowel sounds. There is diffuse tenderness in the upper abdomen without rebound. without tenderness, organomegaly. EXTREMITIES: Reveal no clubbing, cyanosis, or edema. NEUROLOGIC: Grossly intact. SKIN: Warm and dry. LABORATORY DATA: EKG reveals normal sinus rhythm with right bundle-branch block. Hemoglobin 13.2, hematocrit 40.6, white count 6900, platelets 127,000. D-dimer 0.49. Sodium 140, potassium 3.3, chloride 100, carbon dioxide 35, BUN 12, creatinine 0.62. BNP 272.5. Liver function tests were normal. Lipase is normal. Abdominal pelvic CT revealed normal appendix, small right pleural effusion. Hypodensity in the inferior pole of the right kidney. IMPRESSION: 1. Abdominal pain of uncertain etiology. 2. Abnormal Cardiolite with finding of inferoposterior ischemia. This certainly correlates with the totally occluded circumflex and the diffusely diseased distal right coronary artery that was felt could not be intervened. I do not feel that any of his discomfort is cardiac related with continual upper abdominal discomfort for 3 days, but essentially normal cardiac enzymes. 3. Coronary artery disease, status post stent placement in the circumflex which occluded and then stent placement in the proximal RCA, however, very severe distal disease in the RCA. 4. Smoker. 5. Hypercholesterolemia, however, he is not on the atorvastatin 80 mg per day that he was on before. 6. Orthostatic hypotension. RECOMMENDATIONS: I would place him on aspirin 81 daily. Also once his current problems resolve, he probably should be restarted on the atorvastatin 80 mg. Job ID: [id number] MTDD
[2020-08-08] MEDS: Morphine 2 MG/ML VIAL SLOW IVP PRN ×2 (01:24→09:30)
[2020-08-08] MEDS: Dextrose 5 % And 0.9 % NaCl 1,000 ML IV SCH (06:00)
[2020-08-08] MEDS: Enoxaparin Sodium 40 MG/0.4 ML SYRINGE SC SCH (09:29)
--- NOTE | 2020-08-08 09:40 | CT ---
CTA chest with contrast: Multiple axial tomograms obtained through the chest following a pulmonary angiogram protocol with mul tiplanar reconstruction and 3-D postprocessing. INDICATIONS: Dyspnea and chest pain. Assess for pulmonary embolus. COMPARISON: CTA chest 11/10/2019 FINDINGS: Pulmonary arteries show adequate opacification. No evidence of pulmonary embolus identified. Thoracic aorta is unremarkable. No evidence of dissection. Nonspecific mediastinal adenopathy is again noted. Numerous calcified mediastinal and hilar lymph nod es are again noted. Nonspecific hilar adenopathy appears stable. Small pericardial effusion is stable in appearance. Lungs show no focal infiltrate or consolidation. Mild posterior atelectasis in the right lung base ap pears stable. Pleural thickening in the posterior right lung base with calcified plaquing is stable. Images through the upper abdomen appear unremarkable. Subcutaneous haziness and nonspecific axillary lymph nodes are stable in appearance. Findings suggest subcutaneous edema. Osseous structures of the thorax appear unremarkable. IMPRESSION: 1. No evidence of pulmonary embolus 2. No acute lung process. 3. Stable lung and mediastinal findings as described above.
[2020-08-08] MEDS: Dextrose 50% Abboject 50 ML SYRINGE SLOW IVP PRN (11:03)
[2020-08-08 11:31] VITALS: BP 146/77; TEMP 97.8
--- NOTE | 2020-08-08 11:44 | PDOC.DS.DS ---
Provider - Provider Date of Admission: 08/07/20 15:27 Date of Discharge: 08/08/20 Admitting Provider: Abdi Mckay MD Consultations: Cardiology (Dr. Aguirre) Primary Care Physician: [facility] Course - Hospital Course Hospital Course: Discharge diagnosis: 1. Chest pain 2. Chest pain most likely secondary to musculoskeletal etiology 3. Abnormal stress test 4. Abdominal pain Hospital course: Patient is a pleasant 55-year-old gentleman who was admitted to the hospital on August 04, 2020 for abdominal pain. Abdominal pain improved shortly after admission. CT scan of abdomen and pelvis did not show any acute findings. He subsequently had chest pain. He had a nuclear stress test, which showed likely ischemia along the posterior/inferior wall. He was seen by cardiology service. They did not feel that his discomfort was cardiac related. He went on to have CT angiogram of the chest, which did not show any evidence of pulmonary embolism. He is being discharged home in stable condition. He is being started on aspirin 81 mg daily and atorvastatin 80 mg daily. Many thanks for allowing me to participate in your patient's care. Please feel free to contact me with any questions or concerns. Discharge destination: Home - Labs Lab Results: 08/06/20 04:16 08/06/20 04:16 Abnormal Lab Results - Last 48 hrs 08/06/20 13:41: D-Dimer 0.49 H Microbiology - Entire Visit 08/04/20 13:35 Venous blood - Left Arm Blood Culture - Final Presumptiv Micrococcus/Kocuria 08/04/20 13:28 Venous blood - Left Arm Blood Culture - Preliminary NO GROWTH AT 48 HOURS 08/04/20 15:35 Urine voided Urine Culture - Final - Physical Exam Vitals: Vital Signs (12 hours) Temp Pulse Resp BP Pulse Ox 08/08/20 11:29 97.8 F 70 14 146/77 H 98 08/08/20 09:21 97.0 F L 68 16 161/87 H 98 08/08/20 04:15 72 18 08/08/20 00:00 67 20 Weight Weight 187 lb 9.6 oz Physical Exam: The patient was seen and examined on the day of discharge. Patient denies chest pain or shortness of breath. Vital signs are stable. S1 and S2 are heard. Lungs are clear to auscultation bilaterally. Problem - Problem (1) Chest pain Code(s): R07.9 - CHEST PAIN, UNSPECIFIED Status: Acute (2) CAD (coronary artery disease) Code(s): I25.10 - ATHSCL HEART DISEASE OF [place] CORONARY ARTERY W/O ANG PCTRS Status: Chronic Qualifiers: Coronary Disease-Associated Artery/Lesion type: [place] artery [place] vs. 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 Diabetes mellitus complication status: with hyperglycemia Qualified Code(s): E11.65 - Type 2 diabetes mellitus with hyperglycemia; Z79.4 - long term care administrator (current) use of insulin (5) HTN (hypertension) Code(s): I10 - ESSENTIAL (PRIMARY) HYPERTENSION Status: Chronic Qualifiers: Hypertension type: essential hypertension Qualified Code(s): I10 - Essential (primary) hypertension (6) Abdominal pain Code(s): R10.9 - UNSPECIFIED ABDOMINAL PAIN Status: Resolved - Time spent with Patient (mins): 32 Plan - Discharge Medications Home Medications: Medication Instructions Recorded Confirmed Type Gabapentin 300 mg PO TID 08/11/19 08/07/20 History Insulin Detemir [Levemir] 20 unit SQ HS 11/10/19 08/04/20 History Midodrine HCl 2.5 mg PO TID 08/04/20 08/07/20 History Fludrocortisone Acetate [Florinef] 0.1 mg PO DAILY 08/07/20 08/07/20 History Aspirin [Ecotrin Low Strength] 81 mg PO DAILY #30 tab 08/08/20 Rx Atorvastatin Calcium 80 mg PO HS #30 tablet 08/08/20 Rx Allergies: No Known Drug Allergies Allergy (Severe, Verified 08/04/20 20:36) APPLE BLOSSOMS Allergy (Severe, Uncoded 02/03/20 18:03) - Discharge Instructions Activity:: Activity as Tolerated Nourishment:: Heart Healthy Diet - Follow up Plan Referrals: [facility] [Primary Care Provider] - 3 Days Disposition: HOME
[2020-08-08] MEDS ORDERED: Iopamidol 370 76% 100 ML VIAL ONE (12:50)
--- NOTE | 2020-08-09 06:59 | EKG ---
Test Reason : STAT Blood Pressure : / mmHG Vent. Rate : 073 BPM Atrial Rate : 073 BPM P-R Int : 206 ms QRS Dur : 152 ms QT Int : 444 ms P-R-T Axes : 072 099 059 degrees QTc Int : 489 ms Normal sinus rhythm Right bundle branch block Abnormal ECG Confirmed by DIMA BROWN MD ([id number]) on 08/09/2020 6:59:26 AM Referred By: ILENE Confirmed By:DIMA BROWN MD
--- NOTE | 2020-08-10 05:14 | PQF ---
Dear : Danielito Katz Date 08/10/20 Please exercise your independent, professional judgment in responding to the clarification form. Clinical indicators are provided on the bottom of this form for your review Can you please further clarify the diagnosis of the patient? Please check appropriate box(es): [ ] Associated Diagnosis: Acute Myocardial infarction [ x ] Not clinically significant laboratory findings [ ] Other diagnosis please specify [ ] Unable to determine Physician Signature: Date/Time: For continuity of documentation, please document condition throughout progress notes and discharge summary. Thank You. To be completed by CDI/Coding staff for physician review: Present Clinical Indicators - Signs / Symptoms / Labs Results and Location in Medical Record [ x ] Nuclear stress test, which showed likely ischemia along the posterior /inferior wall DS pg.1 [ x ] Chest pain most likely 2/2 musculoskeletal etiology DS pg.1 [ x ] Abnormal cardiolite with finding of inferoposterior ischemia Consult pg.2 [ x ] Abormal stress test DS pg.1 [ x ] He reports that he started having chest pain PN 08/05 [ x ] EKG: ST normal, T waves normal and QT prolongation ED Notes 08/07 [ x ] Troponin: 08/04=0.013 08/05=0.019 Laboratory 08/04 Present Risk Factors Results and Location in Medical Record [ x ] CAD H and P pg.1 [ x ] DM H and P pg.1 [ x ] HTN H and P pg.1 [ x ] Old [place] H and P pg.1 [ x ] Smoker HP 08/04 [ x ] Hypercholesterolemia Consult 08/07 Present Treatments Results and Location in Medical Record [ x ] Electrocardiogram 08/05 Electrocardiogram 08/05 [ x ] IV Fluids MAR [ x ] Stress test 08/06 Stress test 08/06 [ x ] Cardiology Consult Dr. Aguirre 08/07 [ x ] Morphine 4gm IV MAR [ x ] Lovenox 40mg SC MAR 08/06 CDS/Car Salesman Signature: Vish Kramer Phone #: ext [phone] Date 08/10/20 This is a permanent part of the Medical Record [facility]
== END 2020-08-08 13:10 | disposition home or self-care (01) | DRG 313 ==
LOC: ERS 12:14 → 2NO 18:43 → OBSVTOIN 08-07 15:27
PROVIDERS: ADMIT Student in an Organized Health Care Education/Training Program; ATTEND Internal Medicine
DX: R07.89 Other chest pain (principal); I69.354 Hemiplegia and hemiparesis following cerebral infarction affecting left non-dominant side; Z23 Encounter for immunization; I25.10 Atherosclerotic heart disease of native coronary artery without angina pectoris; J44.9 Chronic obstructive pulmonary disease, unspecified; I10 Essential (primary) hypertension; R10.9 Unspecified abdominal pain; F32.9 Major depressive disorder, single episode, unspecified; E87.6 Hypokalemia; F17.210 Nicotine dependence, cigarettes, uncomplicated; E11.65 Type 2 diabetes mellitus with hyperglycemia; E78.00 Pure hypercholesterolemia, unspecified; R94.39 Abnormal result of other cardiovascular function study; F15.10 Other stimulant abuse, uncomplicated; Z79.4 Long term (current) use of insulin; I25.2 Old myocardial infarction; Z95.5 Presence of coronary angioplasty implant and graft; Z95.1 Presence of aortocoronary bypass graft; Z79.82 Long term (current) use of aspirin; Z79.899 Other long term (current) drug therapy; Z91.14 Patient's other noncompliance with medication regimen; Z79.51 Long term (current) use of inhaled steroids; Z89.021 Acquired absence of right finger(s)
CPT/HCPCS: 36415; 36416; 71045; 71275; 74177; 78452; 80048; 80053; 81003; 81015; 82010; 83605; 83690; 83735; 83880; 84443; 84484; 85025; 85379; 87040; 87086; 87149; 90471; 90662; 93005; 93010; 93017; 94760; 96361; 96365; 96366; 96372; 96374; 96375; 96376; A9500; G0008; G0378; J1650; J1815; J2270; J2405; J2785; J3370; J3475; J7050; Q9967

== ENCOUNTER 2020-09-03 15:59 | Observation (INO) | payer OTHER ==
--- NOTE | 2020-09-03 16:36 | RAD ---
Chest one view HISTORY: Hypotension. Dyspnea. COMPARISON: 08/04/2020. FINDINGS: Cardiac silhouette is magnified by projection. Pulmonary vasculature are unremarkable. Mediastinum is midline. Lungs remain hyperinflated. Blunting of the right lateral costophrenic angle is stable. Calcified granulomata are consistent with healed granulomatous disease. No lobar consolidation or evidence of pneumothorax. Old right rib fractures. IMPRESSION : Pulmonary hyperinflation and other chronic-type findings are stable.
[2020-09-03 16:38] LABS: #Basophils 0.1 thou/uL (0.0-0.2); #Eosinphils 0.1 thou/uL (0.0-0.7); #Lymphocytes 1.9 thou/uL (1.20-3.40); #Monocytes 0.5 thou/uL (0.11-0.59); #Neutrophils 4.9 thou/uL (1.40-6.50); %Basophils 0.7 % (0.0-1.0); %Eosinophils 1.5 % (0.0-10.0); %Lymphocytes 25.5 % (21.0-51.0); %Monocytes 6.5 % (0.0-10.0); %Neutrophils 65.8 % (42.0-75.0); Hemoglobin 14.3 g/dL (14.0-18.0); Mean Corpuscular HGB CONC 33.4 g/dL (32.0-36.0); Mean Corpuscular Hemoglobin 31.3 pg (27.0-31.0); Mean Corpuscular Volume 93.5 fL (78.0-98.0); Mean Platelet Volume 8.9 fL (7.4-10.4); Platelet Count 155 thou/uL (130-400); RBC Distribution Width 11.8 % (11.5-14.5); Red Blood Cell (RBC) Count 4.58 mill/uL (4.70-6.10); White Blood Cell (WBC) Count 7.5 thou/uL (4.8-10.8)
[2020-09-03 16:59] LABS: Bacteria/HPF None Seen HPF (None Seen); Bilirubin Negative (Negative); Blood, Urine Negative (Negative); Clarity Clear (Clear); Glucose, Urine (Dipstick) Greater than 1000 mg/dL (Negative); Ketone, Urine Negative (Negative); Leukocyte Negative Leu/uL (Negative); Nitrite Negative (Negative); Protein, Urine (Dipstick) 30 mg/dL (Neg-Trace); RBC/HPF None Seen HPF (0-3); Specific Gravity, Urine 1.012 (1.002-1.036); Squamous Epithelial None Seen HPF (0-3); Urobilinogen Normal mg/dL (Less than 2); WBC/HPF 0-3 HPF (0-3)
[2020-09-03 17:11] LABS: ALT (SGPT) 8 U/L (8-55); AST (SGOT) 10 U/L (5-34); Albumin 3.6 g/dL (3.5-5.0); Alkaline Phosphatase 103 U/L (40-110); Anion Gap 15 mmol/L (10-20); BUN (Urea Nitrogen) 19 mg/dL (8.4-25.7); Bilirubin, Total 0.4 mg/dL (0.2-1.2); Calc. Creatinine Clearance 0 mL/min (70-130); Calcium 8.5 mg/dL (7.8-10.44); Carbon Dioxide 34 mmol/L (22-29); Chloride 91 mmol/L (98-107); Globulin 3.4 g/dL (2.4-3.5); Glucose 512 mg/dL (70-105); Sodium 137 mmol/L (136-145)
[2020-09-03 17:18] LABS: Potassium 2.8 mmol/L (3.5-5.1)
[2020-09-03 17:30] LABS: CKMB 1.4 ng/mL (0-6.6)
[2020-09-03] MEDS ORDERED: Potassium Chloride 20 MEQ TAB ONE (17:30)
[2020-09-03] MEDS ORDERED: Aspirin 325 MG TAB ONE (18:03)
--- NOTE | 2020-09-03 18:04 | PDOC.HHP ---
Hospitalist HPI - History of Present Illness Low Blood pressure History of Present Illness: PCP: Gi Richardson The patient is a 55-year-old male with a past medical history significant for orthostatic hypotension, DM 2 on insulin, COPD, CAD x2 stents (on aspirin) and CVA x3 with left-sided residual deficits that presents to emergency department for the above complaint. The patient reports over the past 1 to 2 days having general malaise. He reports that today he had a low blood pressure reading at [facility], reported 93/51. He had some associated lightheadedness. He denies passing out and vertigo. He also reports that he has been eating "poorly" for the past several days. When asked, he says he has been pastries. He has not been taking his Levemir for the past 2-3 nights. He reports associated urinary frequency. He denies dysuria or hematuria. No he denies any chest pain, heart palpitations or swelling of his lower extremities. Denies any shortness of breath, cough or wheezing. He does have a history of COPD and has nebulizers as needed at home. Denies any abdominal pain, nausea, vomiting, hematochezia/melena. He does have chronic diarrhea, reporting 1-2 loose stools weekly. He treats this with Imodium. ED Course: VITAL SIGNS FriSep 03, 2020 16:00 PRANAV Baker Jennifer BP: 84/58, MAP: 67, Pulse: 75, Resp: 18, Temp: 98.6 (Oral), Pain: 8, O2 sat: 99 on (Room Air), Time: 09/03/2020 16:00. VITAL SIGNS FriSep 03, 2020 16:14 PRANAV Vasques Rebecca BP: 119/74, Pulse: 78, Resp: 18, Pain: 8, O2 sat: 98 on (Room Air), Time: 09/03/2020 16:14. VITAL SIGNS FriSep 03, 2020 16:28 PRANAV Vasques Rebecca BP: 124/75, Pulse: 71, Resp: 18, Pain: 8, O2 sat: 98 on (Room Air), Time: 09/03/2020 16:28. VITAL SIGNS FriSep 03, 2020 17:35 PRANAV Vasques Rebecca BP: 120/74, Pulse: 68, Resp: 18, Pain: 8, O2 sat: 98 on (Room Air), Time: 09/03/2020 17:35. Medication: Normal Saline 1 L IV Fluid Infusion Acknowledged 18:02 09/03/2020 Aspirin oral 325 mg Oral Acknowledged 18:02 09/03/2020 K-Dur 40 mEq Oral Given 17:34 09/03/2020 Hospitalist ROS - Review of Systems All other systems reviewed; all pertinent +/- noted in HPI/Subj - Medication Medications: gabapentin CAPSULE : Strength - 300 mg : ORAL Patient Dose: 300 mg Oral 3 times a day. aspirin oral TABLET : Strength - 81 mg : ORAL Patient Dose: 1 tab(s) Oral once a day. Florinef tablet : Strength - 0.1 mg : ORAL Patient Dose: 0.1 mg Oral 2 times a day. Imodium 2 mg : Strength - CAPSULE (HARD, SOFT, ETC.) : ORAL Patient Dose: 2 mg Oral See Notes.T 2 caps po s/p q BM up to 8 in 24 hrs. Levemir U-100 Insulin solution : Strength - 100 unit/mL : SUBCUTANEOUS Patient Dose: 20 units Subcutaneous once a day (at bedtime). midodrine tablet : Strength - 10 mg : ORAL Patient Dose: unk mg Oral 2 times a day. 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: CVA (x3 with Left residual deficits) Psych: reports: Depression Endocrine: reports: Diabetes (type II) - Past Surgical History Past Surgical History: reports: Other (collapsed lung, dental sx, 2nd/3rd distal tip right hand amp, CAD x 2 (2015, 2018)) - Family History Family History: reports: cardiac disorder (dad HF) Other Family History: non contributory to this case - Social History Smoking Status: Current every day smoker (> 40, currently 1/2 ppd) Tobacco Type: cigarettes Alcohol: reports: None Drugs: reports: marijuana, methamphetamine (quit 2 months ago) Living Situation: With Family Activity level: uses cane/walker - Exam General Appearance: NAD, awake alert. negative: ill appearing Eye: anicteric sclera ENT: normocephalic atraumatic Neck: supple, symmetric Heart: RRR, no murmur, no gallops, no rubs, normal peripheral pulses Respiratory: CTAB, no wheezes, no rales, no ronchi, no tachypnea Gastrointestinal: soft, non-tender, non-distended, normal bowel sounds, no guarding, no rigidity Gastrointestinal - other findings: no rebound Extremities: no cyanosis, no edema Skin: no rashes Neurological: cranial nerve grossly intact, no focal deficits Musculoskeletal: normal tone, normal strength Psychiatric: normal affect, A&O x 3 Hospitalist Results - Labs Result Diagrams: 09/03/20 16:23 09/03/20 20:41 Lab results: WBC 7.5 thou/uL (4.8-10.8) 09/03/20 16:23 Hgb 14.3 g/dL (14.0-18.0) 09/03/20 16:23 Hct 42.8 % (42.0-52.0) 09/03/20 16:23 MCV 93.5 fL (78.0-98.0) 09/03/20 16:23 Plt Count 155 thou/uL (130-400) 09/03/20 16:23 Neutrophils % 65.8 % (42.0-75.0) 09/03/20 16:23 Sodium 137 mmol/L (136-145) 09/03/20 16:23 Potassium 2.8 mmol/L (3.5-5.1) L* 09/03/20 16:23 Chloride 91 mmol/L (98-107) L 09/03/20 16:23 Carbon Dioxide 34 mmol/L (22-29) H 09/03/20 16:23 BUN 19 mg/dL (8.4-25.7) 09/03/20 16:23 Creatinine 1.07 mg/dL (0.7-1.3) 09/03/20 16:23 Glucose 512 mg/dL (70-105) H 09/03/20 16:23 Lactic Acid 1.9 mmol/L (0.5-2.2) 09/03/20 16:23 Calcium 8.5 mg/dL (7.8-10.44) 09/03/20 16:23 Total Bilirubin 0.4 mg/dL (0.2-1.2) 09/03/20 16:23 AST 10 U/L (5-34) 09/03/20 16:23 ALT 8 U/L (8-55) 09/03/20 16:23 Alkaline Phosphatase 103 U/L (40-110) 09/03/20 16:23 CK-MB (CK-2) 1.4 ng/mL (0-6.6) 09/03/20 16:23 Troponin I 0.030 ng/mL (< 0.028) H 09/03/20 16:23 B-Natriuretic Peptide 252.0 pg/mL (0-100) H 09/03/20 16:23 Serum Total Protein 7.0 g/dL (6.0-8.3) 09/03/20 16:23 Albumin 3.6 g/dL (3.5-5.0) 09/03/20 16:23 Urine Ketones Negative mg/dL (Negative) 09/03/20 16:35 Urine Blood Negative (Negative) 09/03/20 16:35 Urine Nitrite Negative (Negative) 09/03/20 16:35 Ur Leukocyte Esterase Negative Sapna/uL (Negative) 09/03/20 16:35 Urine RBC None Seen HPF (0-3) 09/03/20 16:35 Urine WBC 0-3 HPF (0-3) 09/03/20 16:35 Ur Squamous Epith Cells None Seen HPF (0-3) 09/03/20 16:35 Urine Bacteria None Seen HPF (None Seen) 09/03/20 16:35 - EKG Interpretation EKG: Normal sinus rhythm with a rate of 73. Right bundle branch block complete. Borderline first-degree AV block. Left ventricular hypertrophy. T wave inversion in lead V1 only. No ST segment elevation or depression. Impression right bundle branch block complete. - Radiology Interpretation Chest x-ray Status: report reviewed by me Additional Comment: IMPRESSION : Pulmonary hyperinflation and other chronic-type findings are stable. Hospitalist H&P A/P - Problem (1) Hypotension Status: Acute (2) Hypokalemia Code(s): E87.6 - HYPOKALEMIA Status: Acute (3) Hyperglycemia Code(s): R73.9 - HYPERGLYCEMIA, UNSPECIFIED Status: Acute (4) DM2 (diabetes mellitus, type 2) Status: Chronic (5) COPD (chronic obstructive pulmonary disease) Status: Chronic (6) CAD (coronary artery disease) Code(s): I25.10 - ATHSCL HEART DISEASE OF [place] CORONARY ARTERY W/O ANG PCTRS Status: Chronic (7) Depression Code(s): F32.9 - MAJOR DEPRESSIVE DISORDER, SINGLE EPISODE, UNSPECIFIED Status: Chronic (8) Tobacco abuse Code(s): Z72.0 - TOBACCO USE Status: Chronic - Plan Plan: 55/M PMH orthostatic hypotension, DM 2 presents for hypotension and general malaise. Admit to telemetry floor, observation status. Expected length of stay less than 2 midnights. Presented hypotensive, NL HR, RR, SPO2, afebrile. EKG NSR, RBBB (chronic) CXR no acute process. Troponin 0.030, BNP 252 WBC 7.5, LA 1.9, UA glucose 1000, protein 30 #Hypotension Resolved with IV fluids. Appears to be fluid volume deficit 2/2 hyperglycemia and noncompliance home insulin regimen. Presented BP 84/58. History orthostatic hypotension. Compliant with Florinef and midodrine at home. Continue IVF. #Hypokalemia Presented K2.8. Received 40 mEq in ER. No EKG changes. We will start IV fluids with potassium. Recheck BMP in 4 hours. Check mag level. #Hyperglycemia Without diabetic ketoacidosis Noncompliant with home dose Levemir 20 units nightly for 2-3 days. Presented BG 512 Continue IV fluid resuscitation. Will start insulin therapy once potassium improved. Accu-Cheks every 2 hours. Start moderate ISS. Clear liquid diet. #DM2 Noncompliant with home dose Levemir 20 units at night. Will restart levemir when K level improved. Moderate ISS. Every 2 hour Accu-Cheks. #COPD Chronic, stable. Has home albuterol nebulizer at home as needed. Add duo nebs as needed. #CAD Presented indeterminate troponin 0.030. No EKG changes. Recent nuc med cardiac stress test. Cardiology recommendation continue medical management. Trend troponins. History AL x2 Stents x2 (2014, 2018) Continue home dose atorvastatin and aspirin. #Depression Denies SI/HI Takes no home medications for this. #Tobacco abuse On 1 to quit. 40 pack/day history. Currently half pack per day. Start nicotine patch. Counseled tobacco cessation. SCDs for DVT prophylaxis. Pepcid for GI prophylaxis. Full code. Discussed the case with Dr. Reid.
[2020-09-03] MEDS ORDERED: Acetaminophen 650 MG Suppository PR PRN (18:33)
[2020-09-03] MEDS ORDERED: Calcium Carbonate 500 MG ChewTAB PO PRN (18:33)
[2020-09-03] MEDS ORDERED: Ondansetron PF 4 MG/2 ML Vial IVP PRN (18:33)
[2020-09-03] MEDS ORDERED: Acetaminophen 325 MG TAB PO PRN (18:33)
[2020-09-03] MEDS ORDERED: Dextrose 5% in Water 1,000 ML IV PRN (18:33)
[2020-09-03] MEDS ORDERED: Ondansetron ODT 4 MG TAB PO PRN (18:33)
[2020-09-03] MEDS ORDERED: HumaLOG 300 UNITS/3 ML VIAL SC PRN ×2 (18:33)
[2020-09-03] MEDS ORDERED: Guaifenesin DM 100-10/5 ML UDCUP PO PRN (18:33)
[2020-09-03] MEDS ORDERED: Loperamide HCl 2 MG CAP PO PRN (18:33)
[2020-09-03] MEDS ORDERED: Dextrose 50% Abboject 50 ML SYRINGE SLOW IVP PRN (18:33)
[2020-09-03] MEDS ORDERED: Albuterol 200 PUFF (6.7GM INHALER) INH PRN (18:43)
[2020-09-03 19:57] LABS: Troponin I 0.024 ng/mL (< 0.028)
[2020-09-03] MEDS ORDERED: Nicotine 14 MG PATCH TD SCH (20:00)
[2020-09-03] MEDS ORDERED: Non-Formulary Item 1 EACH (Insulin Detemir [Levemir] 100 UNIT/ML Vial) SQ SCH (21:00)
[2020-09-03] MEDS ORDERED: Insulin Glargine 20 UNITS in Pre-Filled Syringe 1 EACH SC SCH (21:00)
[2020-09-03] MEDS ORDERED: Atorvastatin Calcium 40 MG TAB PO SCH ×2 (21:00)
[2020-09-03 21:15] LABS: Base Excess 5.9 mEq/L (-2.0 to +3.0); Calcium, Ionized (venous) 1.05 mmol/L (1.16-1.32); Chloride (VBG) 95 mmol/L (98-106); Hemoglobin (Hb) 13.7 g/dL (13.1-17.2); Potassium (VBG) 2.96 mmol/L (3.70-5.30); Sodium 135.6 mmol/L (133-146); pH (venous) 7.42 (7.32-7.43)
[2020-09-03 21:16] LABS: Actual Bicarbonate (HCO3v) 31 mEq/L (22-28)
[2020-09-03 21:19] LABS: Anion Gap 12 mmol/L (10-20); BUN (Urea Nitrogen) 18 mg/dL (8.4-25.7); Calc. Creatinine Clearance 0 mL/min (70-130); Calcium 8.1 mg/dL (7.8-10.44); Carbon Dioxide 36 mmol/L (22-29); Chloride 92 mmol/L (98-107); Glucose 441 mg/dL (70-105); Sodium 137 mmol/L (136-145)
[2020-09-03 21:27] LABS: Potassium 2.8 mmol/L (3.5-5.1)
[2020-09-03] MEDS ORDERED: Potassium Chloride 20 MEQ TAB PO SCH (22:30)
[2020-09-03] MEDS: NS 0.9% w/ 40 MEQ KCL 1,000 ML IV SCH (22:41)
[2020-09-03] MEDS: Famotidine 20 MG TAB PO SCH (22:43)
[2020-09-03] MEDS: Midodrine HCl 5 MG TAB PO SCH (22:43)
[2020-09-03] MEDS: Gabapentin 300 MG CAP PO SCH (22:43)
[2020-09-03 23:39] LABS: Troponin I 0.032 ng/mL (< 0.028)
[2020-09-04 01:58] VITALS: BMI 22.1
[2020-09-04] MEDS ORDERED: Magnesium 2 GM/50 ML 2 GM in Premix Bag 1 BAG IVPB SCH (03:00)
[2020-09-04 04:38] LABS: #Basophils 0.1 thou/uL (0.0-0.2); #Eosinphils 0.2 thou/uL (0.0-0.7); #Lymphocytes 2.4 thou/uL (1.20-3.40); #Monocytes 0.5 thou/uL (0.11-0.59); %Basophils 0.9 % (0.0-1.0); %Eosinophils 3.2 % (0.0-10.0); %Lymphocytes 39.7 % (21.0-51.0); %Monocytes 7.3 % (0.0-10.0); %Neutrophils 48.9 % (42.0-75.0); Mean Corpuscular Hemoglobin 30.8 pg (27.0-31.0); Mean Corpuscular Volume 93.2 fL (78.0-98.0); Mean Platelet Volume 8.9 fL (7.4-10.4); Platelet Count 142 thou/uL (130-400); Red Blood Cell (RBC) Count 4.24 mill/uL (4.70-6.10); White Blood Cell (WBC) Count 6.1 thou/uL (4.8-10.8)
[2020-09-04 05:06] LABS: Anion Gap 13 mmol/L (10-20); BUN (Urea Nitrogen) 13 mg/dL (8.4-25.7); Calc. Creatinine Clearance 123 mL/min (70-130); Calcium 8.1 mg/dL (7.8-10.44); Carbon Dioxide 29 mmol/L (22-29); Chloride 98 mmol/L (98-107); Glucose 364 mg/dL (70-105); Potassium 3.4 mmol/L (3.5-5.1); Sodium 137 mmol/L (136-145)
[2020-09-04 05:41] LABS: SARS-CoV-2 MS2 Positive; SARS-CoV-2 N Gene Negative; SARS-CoV-2 S Gene Negative; SARS-CoV-2 by NAA Not Detected (NotDetected); SARS-CoV-2 orf1ab Negative
[2020-09-04] MEDS: Famotidine 20 MG TAB PO SCH (08:43)
[2020-09-04] MEDS: Gabapentin 300 MG CAP PO SCH ×2 (08:43→15:37)
[2020-09-04] MEDS: Midodrine HCl 5 MG TAB PO SCH ×2 (08:43→15:36)
[2020-09-04] MEDS: NS 0.9% w/ 40 MEQ KCL 1,000 ML IV SCH ×2 (08:44→14:09)
[2020-09-04] MEDS ORDERED: Aspirin 81 mg Enteric Coated Tablet PO SCH (09:00)
[2020-09-04] MEDS ORDERED: Aspirin 325 mg Enteric Coated Tablet PO SCH (09:00)
[2020-09-04] MEDS ORDERED: Fludrocortisone Acetate 0.1 MG TAB PO SCH (09:00)
--- NOTE | 2020-09-04 10:37 | PDOC.DS.DS ---
Provider - Provider Date of Admission: 09/03/20 18:10 Date of Discharge: 09/04/20 Admitting Provider: Gary Reid DO Primary Care Physician: [facility] Hospital Course - Hospital Course Hospital Course: Discharge diagnosis: 1. Hypotension 2. Hyperglycemia 3. Hypokalemia 4. Medication noncompliance 5. Tobacco abuse 6. Hypomagnesemia Hospital course: Patient is a pleasant 55-year-old gentleman who was admitted to the hospital on September 03, 2020 for hypokalemia, hypotension and hyperglycemia in the context of noncompliance with his insulin as well as not eating well. He improved with intravenous fluids and potassium replacement. He also had magnesium replaced. He is being discharged home in a stable condition. Resuscitation Status: 09/03/20 18:33 Resuscitation Status Routine Co-Sign Provider: Resuscitation Status: FULL: Full Resuscitation Discussed with: patient - Labs Lab Results: 09/04/20 04:22 09/04/20 04:22 Abnormal Lab Results - Last 48 hrs 09/03/20 16:08: VBG pO2 176.2 H, VBG HCO3 31 H*, VBG O2 Sat (Sand[place]) 99.3 H, VBG Base Excess 5.9 H, VBG Hematocrit 40.0 L, VBG Carboxyhemoglobin 3.5 H, Whole Bld Potassium 2.96 L, Whole Bld Chloride 95 L 09/03/20 16:23: Potassium 2.8 L*, Chloride 91 L, Carbon Dioxide 34 H, Albumin/Globulin Ratio 1.1 L 09/03/20 16:23: RBC 4.58 L, MCH 31.3 H 09/03/20 16:23: Troponin I 0.030 H 09/03/20 16:23: B-Natriuretic Peptide 252.0 H 09/03/20 16:35: Urine Protein 30 A, Urine Glucose (UA) Greater than 1000 A 09/03/20 20:41: Potassium 2.8 L*, Chloride 92 L, Carbon Dioxide 36 H 09/03/20 22:58: Troponin I 0.032 H 09/03/20 22:58: Magnesium 1.3 L 09/04/20 04:22: Potassium 3.4 L 09/04/20 04:22: RBC 4.24 L, Hgb 13.0 L, Hct 39.5 L Microbiology - Entire Visit 12/13/20 16:23 Venous blood - Right Arm Blood Culture - Preliminary Specimen has been received and culture in progress. No Growth to date. 09/03/20 16:37 Venous blood - Left Arm Blood Culture - Preliminary Specimen has been received and culture in progress. No Growth to date. - Physical Exam Vitals: Vital Signs (12 hours) Temp Pulse Resp BP Pulse Ox 09/04/20 08:00 97.4 F L 67 18 147/70 H 96 09/04/20 04:00 98.4 F 71 18 186/90 H 98 Weight Weight 177 lb Physical Exam: The patient was seen and examined on the day of discharge. Patient denies chest pain or shortness of breath. Vital signs are stable. S1 and S2 are heard. Lungs are clear to auscultation bilaterally. Plan - Discharge Medications Home Medications: Medication Instructions Recorded Confirmed Type Gabapentin 300 mg PO TID 08/11/19 09/03/20 History Insulin Detemir [Levemir] 20 unit SQ HS 11/10/19 09/03/20 History Midodrine HCl 2.5 mg PO TID 08/04/20 09/03/20 History Fludrocortisone Acetate [Florinef] 0.1 mg PO BID 08/07/20 09/03/20 History Aspirin [Ecotrin Low Strength] 81 mg PO DAILY #30 tab 08/08/20 09/03/20 Rx Allergies: No Known Drug Allergies Allergy (Severe, Verified 09/03/20 20:23) APPLE BLOSSOMS Allergy (Severe, Uncoded 09/03/20 20:23) - Discharge Instructions Discharge Instructions:: Check your blood pressure, heart rate and blood sugars 3 times a day and shows readings to your primary care provider. Be compliant with her medications. Stop smoking. Activity:: Activity as Tolerated Nourishment:: Diabetic Diet, Heart Healthy Diet - Follow up Plan Referrals: [facility] [Primary Care Provider] - 3 Days (Schedule follow up appt to see KATLYN Albarado within 3 days) Disposition: HOME
[2020-09-04] MEDS ORDERED: Insulin Glargine 10 UNITS in Pre-Filled Syringe 1 EACH SC SCH (10:45)
[2020-09-04] MEDS ORDERED: Potassium Chloride 20 MEQ TAB PO SCH (10:45)
[2020-09-04 15:40] VITALS: BP 104/65; TEMP 97.2
[2020-09-04] MEDS ORDERED: Prevnar 13-Val Conj/PF 0.5 ML SYRINGE IM ONE (21:00)
--- NOTE | 2020-09-09 10:41 | EKG ---
Test Reason : Blood Pressure : / mmHG Vent. Rate : 073 BPM Atrial Rate : 073 BPM P-R Int : 192 ms QRS Dur : 154 ms QT Int : 464 ms P-R-T Axes : 069 091 041 degrees QTc Int : 511 ms Normal sinus rhythm with sinus arrhythmia Right bundle branch block Cannot rule out Inferior infarct , age undetermined Abnormal ECG Confirmed by NING ANNE, ENID Waller ([id number]), business editor ADRIEL CHUA ([id number]) on 09/09/2020 10:41:47 AM Referred By: Confirmed By:ENID BARCLAY MD
== END 2020-09-04 16:20 | disposition home or self-care (01) ==
LOC: ERS 15:59 → ERHOLD 18:10 → 2NO 20:10
PROVIDERS: ADMIT Family Medicine; ATTEND Family Medicine
DX: I95.9 Hypotension, unspecified (principal); E11.65 Type 2 diabetes mellitus with hyperglycemia; E87.6 Hypokalemia; E83.42 Hypomagnesemia; F32.9 Major depressive disorder, single episode, unspecified; F17.210 Nicotine dependence, cigarettes, uncomplicated; J44.9 Chronic obstructive pulmonary disease, unspecified; K52.9 Noninfective gastroenteritis and colitis, unspecified; I25.10 Atherosclerotic heart disease of native coronary artery without angina pectoris; I10 Essential (primary) hypertension; E78.5 Hyperlipidemia, unspecified; I25.2 Old myocardial infarction; Z79.4 Long term (current) use of insulin; Z79.899 Other long term (current) drug therapy; Z86.73 Personal history of transient ischemic attack (TIA), and cerebral infarction without residual deficits; Z91.048 Other nonmedicinal substance allergy status; Z91.14 Patient's other noncompliance with medication regimen; Z20.828 Contact with and (suspected) exposure to other viral communicable diseases
CPT/HCPCS: 36415; 36416; 71045; 80048; 80053; 81003; 81015; 82553; 82805; 83605; 83735; 83880; 84484; 85025; 87040; 87086; 87635; 93005; 94760; 96376; G0378; J1815; J3475; J3480; U0003

== ENCOUNTER 2020-12-29 11:51 | Emergency (ER) | payer OTHER ==
[2020-12-29] MEDS ORDERED: Iopamidol 370 76% 100 ML VIAL ONE (12:10)
[2020-12-29 12:43] LABS: #Eosinphils 0.1 thou/uL (0.0-0.7); #Lymphocytes 1.6 thou/uL (1.20-3.40); #Monocytes 0.5 thou/uL (0.11-0.59); #Neutrophils 3.5 thou/uL (1.40-6.50); %Basophils 0.5 % (0.0-1.0); %Eosinophils 1.9 % (0.0-10.0); %Lymphocytes 28.6 % (21.0-51.0); %Monocytes 7.8 % (0.0-10.0); %Neutrophils 61.2 % (42.0-75.0); Hemoglobin 14.6 g/dL (14.0-18.0); Mean Corpuscular HGB CONC 31.9 g/dL (32.0-36.0); Mean Corpuscular Hemoglobin 29.9 pg (27.0-31.0); Mean Corpuscular Volume 93.8 fL (78.0-98.0); Platelet Count 113 thou/uL (130-400); RBC Distribution Width 11.9 % (11.5-14.5); Red Blood Cell (RBC) Count 4.87 mill/uL (4.70-6.10); White Blood Cell (WBC) Count 5.7 thou/uL (4.8-10.8)
[2020-12-29 12:54] LABS: ALT (SGPT) 9 U/L (8-55); AST (SGOT) 11 U/L (5-34); Albumin 3.9 g/dL (3.5-5.0); Alkaline Phosphatase 91 U/L (40-110); Anion Gap 15 mmol/L (10-20); BUN (Urea Nitrogen) 12 mg/dL (8.4-25.7); Bilirubin, Total 0.5 mg/dL (0.2-1.2); Calc. Creatinine Clearance 0 mL/min (70-130); Carbon Dioxide 35 mmol/L (22-29); Chloride 96 mmol/L (98-107); Globulin 3.3 g/dL (2.4-3.5); Glucose 203 mg/dL (70-105); Protein, Total 7.2 g/dL (6.0-8.3); Sodium 143 mmol/L (136-145)
[2020-12-29 13:01] LABS: Potassium 2.9 mmol/L (3.5-5.1)
[2020-12-29] MEDS ORDERED: Potassium Chloride 20 MEQ TAB ONE (14:37)
== END 2020-12-29 16:17 | disposition home or self-care (01) ==
LOC: ERS 11:51
DX: K52.9 Noninfective gastroenteritis and colitis, unspecified (principal); I10 Essential (primary) hypertension; E11.9 Type 2 diabetes mellitus without complications; I25.2 Old myocardial infarction; J44.9 Chronic obstructive pulmonary disease, unspecified; I95.9 Hypotension, unspecified; F17.210 Nicotine dependence, cigarettes, uncomplicated; Z79.4 Long term (current) use of insulin; Z86.73 Personal history of transient ischemic attack (TIA), and cerebral infarction without residual deficits; Z79.82 Long term (current) use of aspirin; Z79.899 Other long term (current) drug therapy
CPT/HCPCS: 36415; 71045; 74177; 80053; 83690; 84484; 85025; 93005; Q9967

== ENCOUNTER 2021-01-28 14:12 | Inpatient (IN) | payer OTHER ==
[~2021-01-28 14:12] MED LIST: Iopamidol-370 76% 500 ML 1 ML ONE
[2021-01-28] MEDS ORDERED: Ondansetron PF 4 MG/2 ML Vial ONE (14:41)
[2021-01-28] MEDS ORDERED: Fentanyl 100 MCG/2 ML VIAL ONE (14:41)
[2021-01-28] MEDS ORDERED: Mag-Al 1200 mg/1200 mg/30 ML UDCUP ONE (14:41)
[2021-01-28] MEDS ORDERED: Lidocaine Viscous Sol 2% 15 ml UD Cup ONE (14:41)
[2021-01-28 14:53] LABS: #Basophils 0.1 thou/uL (0.0-0.2); #Eosinphils 0.2 thou/uL (0.0-0.7); #Lymphocytes 1.5 thou/uL (1.20-3.40); #Monocytes 0.4 thou/uL (0.11-0.59); #Neutrophils 3.1 thou/uL (1.40-6.50); %Basophils 1.6 % (0.0-1.0); %Eosinophils 3.2 % (0.0-10.0); %Lymphocytes 28.2 % (21.0-51.0); %Monocytes 8.3 % (0.0-10.0); %Neutrophils 58.8 % (42.0-75.0); Hemoglobin 16.5 g/dL (14.0-18.0); Mean Corpuscular HGB CONC 32.6 g/dL (32.0-36.0); Mean Corpuscular Hemoglobin 30.6 pg (27.0-31.0); Mean Corpuscular Volume 93.8 fL (78.0-98.0); Mean Platelet Volume 9.5 fL (7.4-10.4); Platelet Count 107 thou/uL (130-400); RBC Distribution Width 12.8 % (11.5-14.5); White Blood Cell (WBC) Count 5.3 thou/uL (4.8-10.8)
[2021-01-28 15:09] LABS: ALT (SGPT) 11 U/L (8-55); AST (SGOT) 15 U/L (5-34); Albumin 4.1 g/dL (3.5-5.0); Alkaline Phosphatase 90 U/L (40-110); Anion Gap 17 mmol/L (10-20); BUN (Urea Nitrogen) 11 mg/dL (8.4-25.7); Bilirubin, Total 0.8 mg/dL (0.2-1.2); Calc. Creatinine Clearance 0 mL/min (70-130); Calcium 9.3 mg/dL (7.8-10.44); Carbon Dioxide 31 mmol/L (22-29); Chloride 96 mmol/L (98-107); Globulin 3.2 g/dL (2.4-3.5); Glucose 304 mg/dL (70-105); Lipase 16 U/L (8-78); Protein, Total 7.3 g/dL (6.0-8.3); Sodium 141 mmol/L (136-145)
[2021-01-28 15:13] LABS: Potassium 2.9 mmol/L (3.5-5.1)
[2021-01-28 15:30] LABS: CKMB 2.3 ng/mL (0-6.6)
[2021-01-28] MEDS ORDERED: Magnesium 2 GM/50 ML BAG (IN WATER) ONE (16:20)
[2021-01-28] MEDS ORDERED: Potassium Chloride 20 MEQ TAB ONE (16:20)
[2021-01-28] MEDS ORDERED: Nitroglycerin 0.4 MG TAB (25 Tab Bottle) SL PRN (17:09)
[2021-01-28] MEDS ORDERED: Ondansetron PF 4 MG/2 ML Vial IVP PRN (17:12)
[2021-01-28] MEDS ORDERED: Ondansetron ODT 4 MG TAB PO PRN (17:12)
[2021-01-28] MEDS ORDERED: Dextrose 50% Abboject 50 ML SYRINGE SLOW IVP PRN (17:12)
[2021-01-28] MEDS ORDERED: Dextrose 5% in Water 1,000 ML IV PRN (17:12)
[2021-01-28 18:15] LABS: Troponin I 0.024 ng/mL (< 0.028)
[2021-01-28] MEDS ORDERED: Aspirin Chewable 81 MG TAB ONE (18:59)
[2021-01-28 19:35] VITALS: BMI 22.9
[2021-01-28] MEDS: Nicotine 14 MG PATCH TD SCH ×2 (20:06→21:02)
[2021-01-28] MEDS: Acetaminophen 325 MG TAB PO PRN (20:26)
[2021-01-28] MEDS: Gabapentin 300 MG CAP PO SCH (20:27)
[2021-01-28] MEDS: Famotidine 20 MG TAB PO SCH (20:28)
[2021-01-28] MEDS: Midodrine HCl 5 MG TAB PO SCH (20:28)
[2021-01-28] MEDS: HumaLOG 300 UNITS/3 ML VIAL SC PRN (20:29)
[2021-01-28] MEDS ORDERED: Potassium Chloride 20 MEQ TAB PO PRN (21:00)
[2021-01-28] MEDS: Lantus 1000 UNITS/10 ML VIAL SC SCH (21:02)
[2021-01-28] MEDS: Fludrocortisone Acetate 0.1 MG TAB PO SCH (21:02)
[2021-01-28 21:27] LABS: Bacteria/HPF None Seen HPF (None Seen); Bilirubin Negative (Negative); Blood, Urine Negative (Negative); Clarity Clear (Clear); Glucose, Urine (Dipstick) Greater than 1000 mg/dL (Negative); Ketone, Urine 20 mg/dL (Negative); Leukocyte Negative Leu/uL (Negative); Nitrite Negative (Negative); Protein, Urine (Dipstick) 300 mg/dL (Neg-Trace); RBC/HPF 0-3 HPF (0-3); Specific Gravity, Urine 1.026 (1.002-1.036); Squamous Epithelial 0-3 HPF (0-3); Urobilinogen Normal mg/dL (Less than 2); WBC/HPF 0-3 HPF (0-3)
[2021-01-28 22:11] LABS: Troponin I 0.024 ng/mL (< 0.028)
[2021-01-28 23:21] LABS: Amphetamine Not Detected (NotDetected); Barbiturates Screen Not Detected (NotDetected); Benzodiazepine Screen Not Detected (NotDetected); Cocaine Metabolite Screen Not Detected (NotDetected); Medtox Control Line Valid? VALID (VALID); Medtox Reader # READER 4; Methadone Not Detected (NotDetected); Methamphetamine Not Detected (NotDetected); Opiate Screen Not Detected (NotDetected); Oxycodone Screen Not Detected (NotDetected); Phencyclidine (PCP) Not Detected (NotDetected); THC/Cannabinoid Screen Detected (NotDetected); Tricyclic Screen Not Detected (NotDetected)
[2021-01-29 00:03] LABS: #Eosinphils 0.1 thou/uL (0.0-0.7); #Lymphocytes 1.5 thou/uL (1.20-3.40); #Monocytes 0.4 thou/uL (0.11-0.59); %Basophils 0.9 % (0.0-1.0); %Eosinophils 2.5 % (0.0-10.0); %Lymphocytes 30.3 % (21.0-51.0); %Monocytes 7.8 % (0.0-10.0); %Neutrophils 58.5 % (42.0-75.0); Mean Corpuscular HGB CONC 32.8 g/dL (32.0-36.0); Mean Corpuscular Hemoglobin 30.6 pg (27.0-31.0); Mean Corpuscular Volume 93.3 fL (78.0-98.0); Mean Platelet Volume 8.9 fL (7.4-10.4); Platelet Count 116 thou/uL (130-400); RBC Distribution Width 12.7 % (11.5-14.5); Red Blood Cell (RBC) Count 4.57 mill/uL (4.70-6.10); White Blood Cell (WBC) Count 5.1 thou/uL (4.8-10.8)
[2021-01-29 00:27] LABS: Troponin I 0.022 ng/mL (< 0.028)
[2021-01-29 00:43] LABS: Anion Gap 11 mmol/L (10-20); BUN (Urea Nitrogen) 9 mg/dL (8.4-25.7); Calc. Creatinine Clearance 126 mL/min (70-130); Calcium 8.6 mg/dL (7.8-10.44); Carbon Dioxide 34 mmol/L (22-29); Chloride 97 mmol/L (98-107); Glucose 228 mg/dL (70-105); Sodium 139 mmol/L (136-145)
[2021-01-29] MEDS ORDERED: Electrolyte Replacement Protocol 1 EACH FS PRN (02:30)
[2021-01-29] MEDS ORDERED: Potassium Chloride 20 MEQ TAB PO SCH (02:30)
[2021-01-29 03:37] LABS: SARS-CoV-2 PCR by NAA Not Detected (NotDetected)
[2021-01-29 05:15] LABS: #Basophils 0.1 thou/uL (0.0-0.2); #Eosinphils 0.1 thou/uL (0.0-0.7); #Monocytes 0.5 thou/uL (0.11-0.59); #Neutrophils 2.5 thou/uL (1.40-6.50); %Basophils 1.2 % (0.0-1.0); %Eosinophils 2.9 % (0.0-10.0); %Lymphocytes 38.5 % (21.0-51.0); %Monocytes 8.7 % (0.0-10.0); %Neutrophils 48.7 % (42.0-75.0); Hemoglobin 14.3 g/dL (14.0-18.0); Mean Corpuscular HGB CONC 32.4 g/dL (32.0-36.0); Mean Corpuscular Hemoglobin 30.4 pg (27.0-31.0); Mean Corpuscular Volume 93.7 fL (78.0-98.0); Mean Platelet Volume 8.4 fL (7.4-10.4); Platelet Count 118 thou/uL (130-400); RBC Distribution Width 12.7 % (11.5-14.5); Red Blood Cell (RBC) Count 4.71 mill/uL (4.70-6.10); White Blood Cell (WBC) Count 5.2 thou/uL (4.8-10.8)
[2021-01-29 05:20] LABS: Hemoglobin A1c 10.7 % (4.0-6.0)
[2021-01-29 05:39] LABS: ALT (SGPT) 9 U/L (8-55); AST (SGOT) 13 U/L (5-34); Albumin 3.2 g/dL (3.5-5.0); Alkaline Phosphatase 74 U/L (40-110); Anion Gap 10 mmol/L (10-20); BUN (Urea Nitrogen) 9 mg/dL (8.4-25.7); Bilirubin, Total 0.4 mg/dL (0.2-1.2); Calc. Creatinine Clearance 130 mL/min (70-130); Calcium 8.8 mg/dL (7.8-10.44); Carbon Dioxide 34 mmol/L (22-29); Cardiac Risk 3.5 (Less than 4.5); Chloride 97 mmol/L (98-107); Cholesterol 166 mg/dl (< 200 Desired); Globulin 2.8 g/dL (2.4-3.5); Glucose 205 mg/dL (70-105); HDL Cholesterol 47 mg/dL (>60 Neg Risk); LDL Cholesterol, Calculated 104 mg/dL; Magnesium 1.8 mg/dL (1.6-2.6); Potassium 3.1 mmol/L (3.5-5.1); Sodium 138 mmol/L (136-145); Triglycerides 77 mg/dL (Less than 150)
[2021-01-29] MEDS ORDERED: Magnesium 2 GM/50 ML 2 GM in Premix Bag 1 BAG IVPB SCH (06:30)
[2021-01-29] MEDS ORDERED: Furosemide 40 MG/4 ML VIAL SLOW IVP SCH (08:45)
[2021-01-29] MEDS: Famotidine 20 MG TAB PO SCH ×2 (09:04→20:50)
[2021-01-29] MEDS: Gabapentin 300 MG CAP PO SCH ×3 (09:04→20:50)
[2021-01-29] MEDS: Fludrocortisone Acetate 0.1 MG TAB PO SCH (09:04)
[2021-01-29] MEDS: Aspirin Chewable 81 MG TAB PO SCH (09:04)
[2021-01-29] MEDS: Midodrine HCl 5 MG TAB PO SCH ×3 (11:17→20:51)
[2021-01-29] MEDS: HumaLOG 300 UNITS/3 ML VIAL SC PRN (12:53)
[2021-01-29] MEDS ORDERED: Senokot S 8.6-50 MG TAB PO SCH (15:30)
[2021-01-29] MEDS: Morphine 4 MG/ML VIAL SLOW IVP PRN ×2 (16:18→23:29)
[2021-01-29] MEDS: Senokot S 8.6-50 MG TAB PO SCH (20:50)
[2021-01-29] MEDS: Atorvastatin Calcium 40 MG TAB PO SCH (20:50)
[2021-01-29] MEDS: Nicotine 14 MG PATCH TD SCH ×2 (22:42→23:34)
[2021-01-29] MEDS: Lantus 1000 UNITS/10 ML VIAL SC SCH (22:43)
[2021-01-29] MEDS: Lactated Ringer's 1,000 ML IV SCH (23:21)
[2021-01-30 05:36] LABS: Prothrombin Time 13.7 sec (12.0-14.7)
[2021-01-30 05:37] LABS: PTT 28.9 sec (22.9-36.1)
[2021-01-30 05:48] LABS: #Basophils 0.1 thou/uL (0.0-0.2); #Eosinphils 0.2 thou/uL (0.0-0.7); #Monocytes 0.5 thou/uL (0.11-0.59); #Neutrophils 2.8 thou/uL (1.40-6.50); %Basophils 1.3 % (0.0-1.0); %Eosinophils 3.4 % (0.0-10.0); %Lymphocytes 36.5 % (21.0-51.0); %Monocytes 8.1 % (0.0-10.0); %Neutrophils 50.7 % (42.0-75.0); Hemoglobin 13.9 g/dL (14.0-18.0); Mean Corpuscular HGB CONC 31.9 g/dL (32.0-36.0); Platelet Count 118 thou/uL (130-400); RBC Distribution Width 12.8 % (11.5-14.5); Red Blood Cell (RBC) Count 4.64 mill/uL (4.70-6.10); White Blood Cell (WBC) Count 5.5 thou/uL (4.8-10.8)
[2021-01-30 05:51] LABS: Phosphorus 3.2 mg/dL (2.3-4.7)
[2021-01-30 05:55] LABS: ALT (SGPT) Less than 7 U/L (8-55); AST (SGOT) 11 U/L (5-34); Alkaline Phosphatase 71 U/L (40-110); Anion Gap 12 mmol/L (10-20); BUN (Urea Nitrogen) 15 mg/dL (8.4-25.7); Bilirubin, Direct 0.1 mg/dL (0.1-0.3); Bilirubin, Total 0.3 mg/dL (0.2-1.2); Calc. Creatinine Clearance 128 mL/min (70-130); Calcium 8.8 mg/dL (7.8-10.44); Carbon Dioxide 33 mmol/L (22-29); Chloride 96 mmol/L (98-107); Glucose 238 mg/dL (70-105); Magnesium 1.8 mg/dL (1.6-2.6); Protein, Total 5.6 g/dL (6.0-8.3); Sodium 138 mmol/L (136-145)
[2021-01-30 05:58] LABS: Potassium 2.8 mmol/L (3.5-5.1)
[2021-01-30] MEDS: Acetaminophen 325 MG TAB PO PRN (05:59)
[2021-01-30] MEDS ORDERED: Magnesium 2 GM/50 ML 2 GM in Premix Bag 1 BAG IVPB SCH (06:15)
[2021-01-30] MEDS: Potassium Chloride 20 MEQ in Premix Bag 1 BAG IVPB SCH (06:30)
[2021-01-30] MEDS: Midodrine HCl 5 MG TAB PO SCH ×3 (09:38→21:16)
[2021-01-30] MEDS: Famotidine 20 MG TAB PO SCH ×2 (09:38→21:15)
[2021-01-30] MEDS: Senokot S 8.6-50 MG TAB PO SCH ×2 (09:39→21:15)
[2021-01-30] MEDS: Aspirin Chewable 81 MG TAB PO SCH (09:39)
[2021-01-30] MEDS: Gabapentin 300 MG CAP PO SCH ×3 (09:39→21:17)
[2021-01-30] MEDS ORDERED: Potassium Chloride 40 MEQ in Premix Bag 1 BAG IVPB SCH (10:15)
[2021-01-30] MEDS ORDERED: Albuterol Sulfate 2.5 mg/3 ml Neb NEB SCH (11:30)
[2021-01-30] MEDS ORDERED: Bupivacaine 0.25% HCL 30 ML VIAL ONE (16:01)
[2021-01-30] MEDS ORDERED: Lidocaine 1% w/Epinephrine 1:100K 20 ML VIAL ONE (16:01)
[2021-01-30] MEDS ORDERED: Iothalamate Meglumine 60% 50 ML VIAL FS ONE (16:01)
[2021-01-30] MEDS ORDERED: SUGAMMADEX SODIUM 200 MG/2 ML VIAL ONE (16:04)
[2021-01-30] MEDS ORDERED: Fentanyl 100 MCG/2 ML VIAL ONE (16:04)
[2021-01-30] MEDS ORDERED: PHENYLEPHRINE-NS 100 MCG/ML 10 ML SYRINGE ONE ×2 (16:04→17:00)
[2021-01-30] MEDS ORDERED: PROPOFOL 200 MG/20 ML VIAL ONE (17:00)
[2021-01-30] MEDS ORDERED: Rocuronium Bromide 10 MG/ML (10ML VIAL) ONE (17:00)
[2021-01-30] MEDS ORDERED: ePHEDrine Sulfate 50 MG/10 ML VIAL ONE (17:00)
[2021-01-30] MEDS ORDERED: Dexamethasone 20 MG/5 ML VIAL ONE (17:00)
[2021-01-30] MEDS ORDERED: Lidocaine 1% PF 5 ML VIAL ONE (17:00)
[2021-01-30] MEDS ORDERED: Ondansetron PF 4 MG/2 ML Vial ONE (17:00)
[2021-01-30] MEDS ORDERED: Ketorolac Tromethamine 30 MG/ML VIAL ONE (17:00)
[2021-01-30] MEDS: Lactated Ringer's 1,000 ML IV SCH (17:13)
[2021-01-30] MEDS ORDERED: Promethazine HCl 25 MG/ML VIAL SLOW IVP PRN (17:42)
[2021-01-30] MEDS ORDERED: PACU-Morphine 4MG/ML VIAL SLOW IVP PRN (17:42)
[2021-01-30] MEDS ORDERED: Promethazine HCl 25 MG/ML VIAL IM PRN (17:42)
[2021-01-30] MEDS ORDERED: Ondansetron HCl/PF 4 MG/2 ML Vial IVP PRN (17:42)
[2021-01-30] MEDS ORDERED: traMADol HCl 50 MG TAB PO PRN (18:08)
[2021-01-30] MEDS ORDERED: Morphine 4 MG/ML VIAL SLOW IVP PRN (18:12)
[2021-01-30 19:22] LABS: Potassium 2.9 mmol/L (3.5-5.1)
[2021-01-30] MEDS: Acetaminophen 325 MG TAB PO SCH ×2 (19:24→22:44)
[2021-01-30] MEDS: traMADol HCl 50 MG TAB PO SCH (19:24)
[2021-01-30] MEDS: Nicotine 14 MG PATCH TD SCH (19:24)
[2021-01-30] MEDS: Atorvastatin Calcium 40 MG TAB PO SCH (21:15)
[2021-01-30] MEDS: Lantus 1000 UNITS/10 ML VIAL SC SCH (21:18)
[2021-01-30] MEDS: HumaLOG 300 UNITS/3 ML VIAL SC PRN (21:20)
[2021-01-30] MEDS ORDERED: Nicotine 14 MG PATCH TD SCH (23:00)
[2021-01-31] MEDS ORDERED: hydrALAZINE 20 MG/ML VIAL SLOW IVP PRN (00:11)
[2021-01-31] MEDS: Potassium Chloride 20 MEQ in Premix Bag 1 BAG IVPB SCH ×3 (00:15→02:56)
[2021-01-31] MEDS: traMADol HCl 50 MG TAB PO SCH ×3 (00:22→12:10)
[2021-01-31] MEDS: Lactated Ringer's 1,000 ML IV SCH (00:44)
[2021-01-31] MEDS: Acetaminophen 325 MG TAB PO SCH ×4 (02:55→15:28)
[2021-01-31] MEDS: HumaLOG 300 UNITS/3 ML VIAL SC PRN ×2 (05:26→12:10)
[2021-01-31 06:03] LABS: Anion Gap 13 mmol/L (10-20); BUN (Urea Nitrogen) 13 mg/dL (8.4-25.7); Calc. Creatinine Clearance 109 mL/min (70-130); Calcium 8.7 mg/dL (7.8-10.44); Carbon Dioxide 29 mmol/L (22-29); Chloride 98 mmol/L (98-107); Glucose 425 mg/dL (70-105); Potassium 4.2 mmol/L (3.5-5.1); Sodium 136 mmol/L (136-145)
[2021-01-31] MEDS: Famotidine 20 MG TAB PO SCH (07:40)
[2021-01-31] MEDS: Aspirin Chewable 81 MG TAB PO SCH (07:40)
[2021-01-31] MEDS: Senokot S 8.6-50 MG TAB PO SCH (07:41)
[2021-01-31] MEDS: Gabapentin 300 MG CAP PO SCH ×2 (07:41→15:28)
[2021-01-31] MEDS: Midodrine HCl 5 MG TAB PO SCH ×2 (07:54→15:28)
[2021-01-31] MEDS ORDERED: Lantus 1000 UNITS/10 ML VIAL SC SCH (09:00)
[2021-01-31 11:21] LABS: ALT (SGPT) 14 U/L (8-55); AST (SGOT) 30 U/L (5-34); Albumin 3.6 g/dL (3.5-5.0); Alkaline Phosphatase 92 U/L (40-110); Bilirubin, Direct 0.1 mg/dL (0.1-0.3); Bilirubin, Total 0.4 mg/dL (0.2-1.2); Protein, Total 7.1 g/dL (6.0-8.3)
[2021-01-31 11:32] VITALS: BP 177/87; TEMP 97.8
== END 2021-01-31 18:03 | disposition home or self-care (01) | DRG 418 ==
LOC: ERS 14:12 → 2SW 16:46 → OBSVTOIN 01-30 18:46
PROVIDERS: ADMIT Family Medicine; ATTEND Family Medicine
PROC: 0FT44ZZ Resection of Gallbladder, Percutaneous Endoscopic Approach (ICD-10-PCS; principal; 2021-01-30)
DX: K80.00 Calculus of gallbladder with acute cholecystitis without obstruction (principal); I69.351 Hemiplegia and hemiparesis following cerebral infarction affecting right dominant side; E44.0 Moderate protein-calorie malnutrition; I10 Essential (primary) hypertension; I25.10 Atherosclerotic heart disease of native coronary artery without angina pectoris; Z95.5 Presence of coronary angioplasty implant and graft; J44.9 Chronic obstructive pulmonary disease, unspecified; F32.9 Major depressive disorder, single episode, unspecified; Z79.4 Long term (current) use of insulin; Z79.82 Long term (current) use of aspirin; I25.2 Old myocardial infarction; Z89.021 Acquired absence of right finger(s); F17.210 Nicotine dependence, cigarettes, uncomplicated; E87.6 Hypokalemia; E83.42 Hypomagnesemia; E11.65 Type 2 diabetes mellitus with hyperglycemia; I95.1 Orthostatic hypotension; I45.10 Unspecified right bundle-branch block; Z91.14 Patient's other noncompliance with medication regimen; I25.5 Ischemic cardiomyopathy; K52.9 Noninfective gastroenteritis and colitis, unspecified; Z68.22 Body mass index [BMI] 22.0-22.9, adult
CPT/HCPCS: 36415; 36416; 71045; 74177; 76705; 80048; 80053; 80061; 80076; 80306; 81001; 82553; 83036; 83605; 83690; 83735; 83880; 84100; 84484; 85014; 85018; 85025; 85610; 85730; 87081; 87635; 88304; 93005; 93010; 94760; 96365; 96375; 96376; G0378; J0360; J1100; J1815; J1885; J1940; J2270; J2405; J2704; J3010; J3475; J3480; Q9961; Q9967; S0020; U0003; U0005

== ENCOUNTER 2021-02-07 09:41 | Inpatient (IN) | payer OTHER ==
[2021-02-07] MEDS ORDERED: Ondansetron PF 4 MG/2 ML Vial IVP SCH (10:40)
[2021-02-07] MEDS ORDERED: Sodium Chloride 0.9% 1,000 ML IV SCH (10:40)
[2021-02-07] MEDS ORDERED: Ondansetron PF 4 MG/2 ML Vial ONE (11:13)
[2021-02-07] MEDS ORDERED: Morphine 4 MG/ML VIAL ONE (11:13)
[2021-02-07 11:38] LABS: Bacteria/HPF None Seen HPF (None Seen); Bilirubin Negative (Negative); Blood, Urine Negative (Negative); Clarity Clear (Clear); Glucose, Urine (Dipstick) 200 mg/dL (Negative); Ketone, Urine Negative (Negative); Leukocyte Negative Leu/uL (Negative); Nitrite Negative (Negative); Protein, Urine (Dipstick) 100 mg/dL (Neg-Trace); RBC/HPF 0-3 HPF (0-3); Specific Gravity, Urine 1.015 (1.002-1.036); Squamous Epithelial 0-3 HPF (0-3); Urobilinogen Normal mg/dL (Less than 2); WBC/HPF 0-3 HPF (0-3)
[2021-02-07 11:49] LABS: #Eosinphils 0.4 thou/uL (0.0-0.7); #Lymphocytes 1.7 thou/uL (1.20-3.40); #Monocytes 0.8 thou/uL (0.11-0.59); #Neutrophils 3.4 thou/uL (1.40-6.50); %Basophils 0.6 % (0.0-1.0); %Eosinophils 6.2 % (0.0-10.0); %Lymphocytes 26.7 % (21.0-51.0); %Monocytes 13.2 % (0.0-10.0); %Neutrophils 53.4 % (42.0-75.0); Hemoglobin 12.7 g/dL (14.0-18.0); MDiff Complete? YES; Mean Corpuscular HGB CONC 30.5 g/dL (32.0-36.0); Mean Corpuscular Hemoglobin 28.6 pg (27.0-31.0); Mean Platelet Volume 9.2 fL (7.4-10.4); Platelet Count 119 thou/uL (130-400); Platelet Morphology Comment Appears Decreased; Polychromasia SLIGHT = 2-3 cells (100X) (0-2/hpf); RBC Distribution Width 12.7 % (11.5-14.5); Red Blood Cell (RBC) Count 4.45 mill/uL (4.70-6.10); White Blood Cell (WBC) Count 6.3 thou/uL (4.8-10.8)
[2021-02-07 12:58] LABS: ALT (SGPT) 15 U/L (8-55); AST (SGOT) 17 U/L (5-34); Albumin 3.3 g/dL (3.5-5.0); Alkaline Phosphatase 76 U/L (40-110); Anion Gap 10 mmol/L (10-20); BUN (Urea Nitrogen) 12 mg/dL (8.4-25.7); Bilirubin, Total 0.6 mg/dL (0.2-1.2); Calc. Creatinine Clearance 0 mL/min (70-130); Calcium 8.7 mg/dL (7.8-10.44); Carbon Dioxide 28 mmol/L (22-29); Chloride 104 mmol/L (98-107); Globulin 2.9 g/dL (2.4-3.5); Glucose 119 mg/dL (70-105); Lipase 26 U/L (8-78); Potassium 3.8 mmol/L (3.5-5.1); Protein, Total 6.2 g/dL (6.0-8.3); Sodium 138 mmol/L (136-145)
[2021-02-07] MEDS ORDERED: Iopamidol-370 76% 500 ML 1 ML ONE (13:41)
[2021-02-07] MEDS ORDERED: Piperacillin/Tazobactam 4.5 GM in Sodium Chloride 0.9% 100 ML IVPB SCH (14:14)
[2021-02-07] MEDS ORDERED: Pantoprazole 40 MG VIAL ONE (14:21)
[2021-02-07] MEDS ORDERED: Piperacillin/Tazobactam 4.5 GM VIAL ONE (14:21)
[2021-02-07] MEDS ORDERED: Sodium Chloride 0.9% (PF) 10 ML VIAL FS PRN (14:41)
[2021-02-07] MEDS ORDERED: Pantoprazole 80 MG, Admixture Fee 1 EACH in Sodium Chloride 0.9% 100 ML IVPB SCH (16:15)
[2021-02-07] MEDS ORDERED: Dextrose 50% Abboject 50 ML SYRINGE SLOW IVP PRN (16:26)
[2021-02-07] MEDS ORDERED: Dextrose 5% in Water 1,000 ML IV PRN (16:26)
[2021-02-07] MEDS ORDERED: Ondansetron PF 4 MG/2 ML Vial IVP PRN (16:27)
[2021-02-07] MEDS ORDERED: Acetaminophen 650 MG Suppository PR PRN (16:27)
[2021-02-07] MEDS ORDERED: Pantoprazole 80 MG in Sodium Chloride 0.9% 100 ML IVPB SCH (16:30)
[2021-02-07] MEDS ORDERED: hydrALAZINE 20 MG/ML VIAL SLOW IVP PRN (16:38)
[2021-02-07 18:10] VITALS: BMI 25.0
[2021-02-07] MEDS: Dextrose 5 % And 0.9 % NaCl 1,000 ML IV SCH (19:43)
[2021-02-07] MEDS: Nicotine 14 MG PATCH TD SCH (20:10)
[2021-02-07] MEDS ORDERED: Ketorolac Tromethamine 30 MG/ML VIAL IVP PRN (20:22)
[2021-02-07] MEDS: Morphine 4 MG/ML VIAL SLOW IVP PRN (21:14)
[2021-02-08] MEDS: Dextrose 5 % And 0.9 % NaCl 1,000 ML IV SCH ×2 (09:00→23:13)
[2021-02-08] MEDS: Furosemide 40 MG/4 ML VIAL SLOW IVP SCH (09:02)
[2021-02-08] MEDS: Morphine 4 MG/ML VIAL SLOW IVP PRN ×3 (09:13→20:29)
[2021-02-08 09:20] LABS: #Basophils 0.1 thou/uL (0.0-0.2); #Eosinphils 0.2 thou/uL (0.0-0.7); #Lymphocytes 1.3 thou/uL (1.20-3.40); #Monocytes 0.6 thou/uL (0.11-0.59); #Neutrophils 2.2 thou/uL (1.40-6.50); %Basophils 1.2 % (0.0-1.0); %Eosinophils 5.5 % (0.0-10.0); %Lymphocytes 29.7 % (21.0-51.0); %Monocytes 13.9 % (0.0-10.0); %Neutrophils 49.7 % (42.0-75.0); Mean Corpuscular HGB CONC 32.6 g/dL (32.0-36.0); Mean Corpuscular Volume 95.2 fL (78.0-98.0); Mean Platelet Volume 8.8 fL (7.4-10.4); Platelet Count 104 thou/uL (130-400); RBC Distribution Width 12.4 % (11.5-14.5); Red Blood Cell (RBC) Count 3.86 mill/uL (4.70-6.10); White Blood Cell (WBC) Count 4.3 thou/uL (4.8-10.8)
[2021-02-08 09:36] LABS: ALT (SGPT) 13 U/L (8-55); AST (SGOT) 18 U/L (5-34); Albumin 2.9 g/dL (3.5-5.0); Alkaline Phosphatase 78 U/L (40-110); Anion Gap 10 mmol/L (10-20); BUN (Urea Nitrogen) 11 mg/dL (8.4-25.7); Bilirubin, Total 0.5 mg/dL (0.2-1.2); Calc. Creatinine Clearance 183 mL/min (70-130); Calcium 8.2 mg/dL (7.8-10.44); Carbon Dioxide 28 mmol/L (22-29); Chloride 106 mmol/L (98-107); Globulin 2.5 g/dL (2.4-3.5); Glucose 138 mg/dL (70-105); Potassium 3.7 mmol/L (3.5-5.1); Protein, Total 5.4 g/dL (6.0-8.3); Sodium 140 mmol/L (136-145)
[2021-02-08] MEDS ORDERED: Morphine 4 MG/ML VIAL SLOW IVP SCH (10:40)
[2021-02-08] MEDS ORDERED: Pantoprazole 40 MG VIAL IVP SCH (14:13)
[2021-02-08] MEDS ORDERED: Amlodipine 10 MG TAB PO SCH (14:30)
[2021-02-08] MEDS: HumaLOG 300 UNITS/3 ML VIAL SC PRN (15:55)
[2021-02-08] MEDS: Carvedilol 3.125 MG TAB PO SCH (17:28)
[2021-02-08] MEDS: Nicotine 14 MG PATCH TD SCH (17:29)
[2021-02-08] MEDS: Pantoprazole 40 MG VIAL IVP SCH (20:29)
[2021-02-09] MEDS ORDERED: Melatonin 3 MG TAB PO PRN (00:56)
[2021-02-09] MEDS: HumaLOG 300 UNITS/3 ML VIAL SC PRN (06:02)
[2021-02-09] MEDS: Morphine 4 MG/ML VIAL SLOW IVP PRN (06:35)
[2021-02-09 08:21] VITALS: BP 131/69; TEMP 98.3
[2021-02-09] MEDS: Pantoprazole 40 MG VIAL IVP SCH (08:37)
[2021-02-09] MEDS: Carvedilol 3.125 MG TAB PO SCH (08:37)
[2021-02-09] MEDS: Furosemide 40 MG/4 ML VIAL SLOW IVP SCH (08:37)
[2021-02-09] MEDS ORDERED: Atorvastatin Calcium 40 MG TAB PO SCH (09:00)
[2021-02-09] MEDS ORDERED: Amlodipine 10 MG TAB PO SCH (09:00)
[2021-02-09] MEDS ORDERED: Loperamide HCl 2 MG CAP PO SCH (11:00)
[2021-02-09] MEDS ORDERED: HYDROcodone/Acetaminophen 5/325 mg Tablet PO SCH (11:00)
[2021-02-09 18:36] LABS: H. pylori IgA ABS Less than 9.0 units (0.0-8.9); H. pylori IgG ABS 0.63 (0.00-0.79); H. pylori IgM ABS Less than 9.0 units (0.0-8.9)
== END 2021-02-09 11:30 | disposition home or self-care (01) | DRG 381 ==
LOC: ERS 09:41 → ONC 14:29
PROVIDERS: ADMIT Internal Medicine; ATTEND Internal Medicine
DX: K26.5 Chronic or unspecified duodenal ulcer with perforation (principal); I69.354 Hemiplegia and hemiparesis following cerebral infarction affecting left non-dominant side; I25.10 Atherosclerotic heart disease of native coronary artery without angina pectoris; J44.9 Chronic obstructive pulmonary disease, unspecified; F32.9 Major depressive disorder, single episode, unspecified; F17.210 Nicotine dependence, cigarettes, uncomplicated; E78.49 Other hyperlipidemia; F15.11 Other stimulant abuse, in remission; I10 Essential (primary) hypertension; E11.65 Type 2 diabetes mellitus with hyperglycemia; Z91.14 Patient's other noncompliance with medication regimen; Z91.11 Patient's noncompliance with dietary regimen; Z90.49 Acquired absence of other specified parts of digestive tract; Z79.4 Long term (current) use of insulin; Z79.82 Long term (current) use of aspirin; I25.2 Old myocardial infarction; Z98.890 Other specified postprocedural states; Z95.5 Presence of coronary angioplasty implant and graft; Z89.021 Acquired absence of right finger(s)
CPT/HCPCS: 36415; 36416; 74177; 80053; 81003; 81015; 83690; 84484; 85025; 93005; 93306; 96365; 96367; 96375; 96376; C9113; J0360; J1885; J1940; J2270; J2405; J2543; J3490; Q9967

== ENCOUNTER 2021-03-05 11:31 | Observation (INO) | payer OTHER ==
[2021-03-05 12:29] LABS: #Eosinphils 0.1 thou/uL (0.0-0.7); #Lymphocytes 1.7 thou/uL (1.20-3.40); #Monocytes 0.5 thou/uL (0.11-0.59); #Neutrophils 5.1 thou/uL (1.40-6.50); %Basophils 0.6 % (0.0-1.0); %Eosinophils 1.9 % (0.0-10.0); %Lymphocytes 22.3 % (21.0-51.0); %Neutrophils 68.1 % (42.0-75.0); Hemoglobin 14.9 g/dL (14.0-18.0); Mean Corpuscular HGB CONC 33.4 g/dL (32.0-36.0); Mean Corpuscular Hemoglobin 31.1 pg (27.0-31.0); Mean Corpuscular Volume 93.2 fL (78.0-98.0); Mean Platelet Volume 8.9 fL (7.4-10.4); Platelet Count 124 thou/uL (130-400); RBC Distribution Width 12.8 % (11.5-14.5); Red Blood Cell (RBC) Count 4.79 mill/uL (4.70-6.10); White Blood Cell (WBC) Count 7.5 thou/uL (4.8-10.8)
[2021-03-05 12:57] LABS: ALT (SGPT) 17 U/L (8-55); AST (SGOT) 15 U/L (5-34); Albumin 3.6 g/dL (3.5-5.0); Alkaline Phosphatase 94 U/L (40-110); Anion Gap 14 mmol/L (10-20); BUN (Urea Nitrogen) 14 mg/dL (8.4-25.7); Bilirubin, Total 0.6 mg/dL (0.2-1.2); Calc. Creatinine Clearance 0 mL/min (70-130); Calcium 8.8 mg/dL (7.8-10.44); Carbon Dioxide 27 mmol/L (22-29); Chloride 100 mmol/L (98-107); Globulin 3.3 g/dL (2.4-3.5); Glucose 319 mg/dL (70-105); Lipase 17 U/L (8-78); Potassium 3.5 mmol/L (3.5-5.1); Protein, Total 6.9 g/dL (6.0-8.3); Sodium 137 mmol/L (136-145)
[2021-03-05 21:24] LABS: Bilirubin Negative (Negative); Blood, Urine Negative (Negative); Glucose, Urine (Dipstick) 250 mg/dL (Negative); Ketone, Urine Negative (Negative); Leukocyte Negative (Negative); Nitrite Negative (Negative); Protein, Urine (Dipstick) Trace mg/dL (Neg-Trace); Specific Gravity, Urine 1.015 (1.005-1.030); Urobilinogen 0.2 mg/dL (Less than 2)
[2021-03-05 21:25] LABS: Clarity Clear (Clear)
[2021-03-05 22:28] LABS: Troponin I Less than 0.010 ng/mL (< 0.028)
[2021-03-06 01:20] LABS: Troponin I Less than 0.010 ng/mL (< 0.028)
[2021-03-06] MEDS ORDERED: Acetaminophen 325 MG TAB PO PRN (05:14)
[2021-03-06] MEDS ORDERED: Ondansetron PF 4 MG/2 ML Vial IVP PRN (05:14)
[2021-03-06] MEDS ORDERED: HumaLOG 300 UNITS/3 ML VIAL SC PRN ×2 (05:16)
[2021-03-06] MEDS ORDERED: Dextrose 5% in Water 1,000 ML IV PRN (05:16)
[2021-03-06] MEDS ORDERED: Dextrose 50% Abboject 50 ML SYRINGE SLOW IVP PRN (05:16)
[2021-03-06 06:17] LABS: #Eosinphils 0.2 thou/uL (0.0-0.7); #Lymphocytes 1.7 thou/uL (1.20-3.40); #Monocytes 0.5 thou/uL (0.11-0.59); #Neutrophils 3.5 thou/uL (1.40-6.50); %Basophils 0.5 % (0.0-1.0); %Eosinophils 3.1 % (0.0-10.0); %Lymphocytes 28.7 % (21.0-51.0); %Monocytes 8.7 % (0.0-10.0); %Neutrophils 58.9 % (42.0-75.0); Hemoglobin 13.1 g/dL (14.0-18.0); Mean Corpuscular HGB CONC 32.1 g/dL (32.0-36.0); Mean Corpuscular Hemoglobin 30.1 pg (27.0-31.0); Mean Corpuscular Volume 93.8 fL (78.0-98.0); Mean Platelet Volume 9.1 fL (7.4-10.4); Platelet Count 105 thou/uL (130-400); RBC Distribution Width 12.8 % (11.5-14.5); Red Blood Cell (RBC) Count 4.33 mill/uL (4.70-6.10)
[2021-03-06 06:36] LABS: Anion Gap 11 mmol/L (10-20); BUN (Urea Nitrogen) 12 mg/dL (8.4-25.7); Calc. Creatinine Clearance 94 mL/min (70-130); Calcium 8.5 mg/dL (7.8-10.44); Carbon Dioxide 32 mmol/L (22-29); Chloride 101 mmol/L (98-107); Glucose 409 mg/dL (70-105); Potassium 3.3 mmol/L (3.5-5.1); Sodium 141 mmol/L (136-145)
== END 2021-03-06 11:10 | disposition left against medical advice (07) ==
LOC: ERS 11:31 → ERHOLD 21:26
PROVIDERS: ADMIT Internal Medicine; ATTEND Physician Assistant
DX: I95.1 Orthostatic hypotension (principal); I10 Essential (primary) hypertension; I25.10 Atherosclerotic heart disease of native coronary artery without angina pectoris; E11.9 Type 2 diabetes mellitus without complications; J44.9 Chronic obstructive pulmonary disease, unspecified; F17.210 Nicotine dependence, cigarettes, uncomplicated; I45.10 Unspecified right bundle-branch block; F12.10 Cannabis abuse, uncomplicated; I69.354 Hemiplegia and hemiparesis following cerebral infarction affecting left non-dominant side; I25.2 Old myocardial infarction; Z53.29 Procedure and treatment not carried out because of patient's decision for other reasons; Z79.4 Long term (current) use of insulin; Z79.82 Long term (current) use of aspirin; Z79.899 Other long term (current) drug therapy; Z88.8 Allergy status to other drugs, medicaments and biological substances; Z95.5 Presence of coronary angioplasty implant and graft
CPT/HCPCS: 36415; 71045; 80048; 80053; 81003; 83605; 83690; 84484; 85025; 85379; 93005; G0378